=== PATIENT | female | born 1955 | race Caucasian/White ===

== ENCOUNTER 2022-04-17 14:56 | Emergency (ER) | payer MEDICARE, OTHER, SELFPAY ==
[2022-04-17 15:27] VITALS: BP 144/90; BP 148/79; PULSE 66; PULSE 77; RESP 20; TEMP 36.8; O2SAT 96; O2SAT 99; BMI 25.8
--- NOTE | 2022-04-17 15:44 | ED_ITS ---
HPI - General Adult General Chief complaint: General Medical Stated complaint: PSYCH EVAL PER EMS Time Seen by Provider: 04/17/22 15:37 Source: family and EMS Mode of arrival: EMS Limitations: other (dementia) History of Present Illness HPI narrative: This is 67 years old female with history of dementia she arrived here by ambulance because she has been wandering, report change in behavior for the last couple of weeks, patient is awake and alert he noted acute distress at this point denies any chest pain shortness of breath fever but the history is limited because of dementia Onset (ago): day(s) (3) Radiation: non-radiation Severity: mild Relieving factors: none Related Data Allergies Allergy/AdvReac Type Severity Reaction Status Date / Time No Known Allergies Allergy Unverified 01/21/20 16:10 Review of Systems Review of Systems: Yes Unobtainable due to mental condition (dementia) [facility] Past Medical History [facility] Narrative: HTN,hypercholesteremia,dementia Social History Social History Smoked in Last 30 Days: No Use of substances other than those prescribed or required for medical reasons: No Advance Directives: No Advance Directives Information Provided: Yes Physical Exam ED Vital Signs: Vital Signs - 24 hr 04/17/22 15:27 Temperature 98.3 F Pulse Rate 66 Respiratory Rate 20 Blood Pressure 148/79 H Pulse Oximetry 96 Oxygen Delivery Method Room Air BMI result Body Mass Index 25.8 She looks well she has no toxic-appearing Const General: healthy appearing, comfortable, no acute distress, well developed, alert, awake and Physically active Nutritional Appearance: average body habitus Orientation/consciousness: oriented to place HENWV Head: Yes normal to inspection Face and sinus: Yes normal facial exam Mouth: Normal oral and palatal mucosa present Throat: Yes posterior oropharynx normal Neck Neck: Yes normal visual inspection Chest Chest palpation & inspection: normal inspection of the chest Resp Effort & Inspection: normal respiratory effort Auscultation: clear to auscultation bilaterally Cardio Jugular venous distension: no JVD Rate: regular rate Rhythm: regular rhythm GI Inspection: Yes normal to inspection Palpation (GI): Soft to palpation, not firm, nontender, no guarding and not rigid Skin General skin exam: no rashes or lesions noted and elasticity normal Neuro General: oriented to place Cranial nerves: Yes CN's II-XII intact bilaterally Gait exam (Neuro): Normal gait present Motor exam (neuro): 5/5 motor strength present throughout Extrem General: Yes normal to inspection Course Reevaluation(s) Reevaluation #1: signed out to Dr Smith Time: 16:25 Medical Decision Making Medical Decision Making [facility] Narrative: In summary the patient presented with dementia with behavior changes, we will check a UA, CBC chemistry will consult care team Differential Diagnosis uti,dehydration,infection Lab Data Result Diagrams: 04/17/22 16:10 04/17/22 16:11 Labs: Lab Results 04/17/22 Range/Units 16:10 WBC 6.8 (4.8-10.8) X10*3/uL RBC 4.86 (4.20-5.50) X10*6/uL Hgb 13.6 (12.0-16.0) g/dl Hct 41.3 (37.0-47.0) % MCV 85.0 (80.0-98.0) fL MCH 28.0 (27.0-33.0) pg MCHC 32.9 (31.0-35.0) g/dl RDW 12.7 (11.0-16.0) % Plt Count 249 (160-400) X10*3/uL MPV 11.5 (9.4-12.3) fL Immature Gran % (Auto) 0.3 (0.0-0.4) % Neut % (Auto) 65.1 (45-73) % Lymph % (Auto) 25.1 (20-40) % [place] % (Auto) 7.0 (2-11) % Eos % (Auto) 1.5 (0-4) % Baso % (Auto) 1.0 (0-2) % Lymph # (Auto) 1.7 (1.2-4.9) X10*3/uL [place] # (Auto) 0.5 (0.1-1.2) X10*3/uL Eos # (Auto) 0.1 (0.0-0.4) X10*3/uL Baso # (Auto) 0.1 (0.0-0.2) X10*3/uL Abs Immat Gran (auto) 0.02 (0.00-0.03) X10*3/uL Absolute Neuts (auto) 4.5 (2.0-8.3) x10*3/uL Absolute Nucleated RBC 0.000 (0.0-0.012) X10*3/uL Nucleated RBC % (auto) 0.0 (0.0-0.2) /100WBC Discharge Plan Discharge Clinical Impression: Dementia with behavioral disturbance Patient Disposition: Still a Patient
[2022-04-17 16:17] LABS: MANUAL DIFF FLAG NO
[2022-04-17 16:18] LABS: Basophils Absolute Auto 0.1 X10*3/uL (0.0-0.2); Eosinophils Absolute Auto 0.1 X10*3/uL (0.0-0.4); Eosinophils Percent Auto 1.5 % (0-4); Hematocrit 41.3 % (37.0-47.0); Hemoglobin 13.6 g/dl (12.0-16.0); Imm Gran Abs Auto 0.02 X10*3/uL (0.00-0.03); Imm Gran Pct Auto 0.3 % (0.0-0.4); Lymphocytes Absolute Auto 1.7 X10*3/uL (1.2-4.9); Lymphocytes Percent Auto 25.1 % (20-40); Mean Corpuscular HGB Conc 32.9 g/dl (31.0-35.0); Mean Platelet Volume 11.5 fL (9.4-12.3); Monocytes Absolute Auto 0.5 X10*3/uL (0.1-1.2); Neutrophils Absolute Auto 4.5 x10*3/uL (2.0-8.3); Neutrophils Percent Auto 65.1 % (45-73); Platelet Count 249 X10*3/uL (160-400); Red Blood Count 4.86 X10*6/uL (4.20-5.50); Red Cell Distribution Width 12.7 % (11.0-16.0); White Blood Count 6.8 X10*3/uL (4.8-10.8)
[2022-04-17 16:40] LABS: Alanine Aminotransferase 22 U/L (0-31); Albumin Level 4.3 g/dL (3.5-5.0); Alkaline Phosphatase 68 U/L (39-117); Anion Gap 12 (12-20); Aspartate Amino Transferase 18 U/L (5-31); Bilirubin Total 0.5 mg/dL (0.0-1.0); Blood Urea Nitrogen 21 mg/dL (9-16); Calcium 9.5 mg/dL (8.4-10.2); Carbon Dioxide 25 mmol/L (22-29); Chloride 108 mmol/L (96-108); Creatinine Clr Calc Pharmacy 61.1; Estimated Glomerular Filt Rate > 60; Glucose Random 86 mg/dL (60-115); Potassium 3.9 mmol/L (3.3-5.1); Sodium 141 mmol/L (135-145); Total Protein 6.9 g/dL (6.5-8.0)
[2022-04-17 16:52] LABS: Influenza A PCR NEGATIVE (Negative); Influenza B PCR NEGATIVE (Negative); Resp Syncy Virus RNA Qual PCR NEGATIVE (Negative); SARS COV2 PCR INHOUSE NEGATIVE (Negative)
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
--- NOTE | 2022-04-17 20:03 | PC.NURSE ---
Patient requested discharge, patient is here for wandering secondary to dementia, patient was diagnosed with Alzheimer 4 years ago, patient is own her own, provider notified/thinks patient is not section-able/consented with patient's wish, patient's was not happy with discharge plan but this keno writer explained that we have no reason to keep her against her wish, care team help asked/clinician spoke with patient's /decided to undo to d/c however patient's upset and decided to take patient home.
== END 2022-04-17 20:12 | disposition home or self-care (01) ==
PROVIDERS: Emergency Provider Emergency Medicine
DX: F03.918 Unspecified dementia, unspecified severity, with other behavioral disturbance (principal); Z20.822 Contact with and (suspected) exposure to COVID-19; Z79.899 Other long term (current) drug therapy
CPT/HCPCS: 0241U; 80053; 85025; 99283

== ENCOUNTER 2022-04-30 21:43 | Emergency (ER) | payer MEDICARE, OTHER, SELFPAY ==
[2022-04-30 21:56] VITALS: BP 134/90; BP 137/81; PULSE 73; PULSE 81; RESP 18; TEMP 36.3; O2SAT 97; O2SAT 98; BMI 25.9
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
[2022-04-30 22:25] LABS: Appearance Urine Clear; Color Urine Yellow; Glucose Urine UA Negative (Negative); Leukocyte Esterase Urine Small (1+) (Negative); Nitrite Urine Negative (Negative); Specific Gravity - Urine 1.025 (1.005-1.025); UMIC TRIGGER UACC YES; Urine Blood Small (1+) (Negative); Urine Ketones Trace mg/dL (Negative); Urine Protein Negative (Neg-Trace)
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
[2022-04-30 22:38] LABS: Bacteria Urine None Seen (None Seen); Hyaline Casts Urine 0-2 /LPF (0-2); Squamous Epithelial Cell Urine 0-2 /HPF (0-2); UACC Culture Trigger YES; WBC Urine 0-5 /HPF (0-5)
--- NOTE | 2022-05-01 00:13 | PC.NURSE ---
Rn administered medications per MAR. Pt denies pain at this time. Pt is sitting in Ed stretcher whispering words to self. Rn unable to make out the words.
--- NOTE | 2022-05-01 00:47 | MHC.CARE ---
Pt was evaluated by CARE team. Recommendation is for psychiatry consult. ED provider updated, pt and are aware of plan.
[2022-05-01 06:00] VITALS: BP 110/68; PULSE 60; RESP 18; TEMP 36.5; O2SAT 100
[2022-05-01 07:23] VITALS: BP 121/78; PULSE 66; RESP 14; TEMP 36.5; O2SAT 99
[2022-05-01 10:11] VITALS: BP 136/92; PULSE 72; RESP 16; TEMP 36.4; O2SAT 98
[2022-05-01 10:31] LABS: COVID-19 Test Negative (Negative); IDNOW Serial# 16C4AD1C
--- NOTE | 2022-05-01 11:24 | PHA.MEDREC ---
Pharmacy Consult ? Medication Reconciliation Pharmacy has completed the medication reconciliation. Patient and spouse (Jim) confirmed meds with med list on-hand.
[2022-05-01 11:46] VITALS: BP 131/79; PULSE 63
[2022-05-01] MEDS: Sertraline HCL 25 MG TABLET 75 MG PO (11:48)
[2022-05-01] MEDS: Memantine HCl 10 MG TABLET PO (11:49)
[2022-05-01] MEDS: QUEtiapine Fumarate 25 MG TABLET PO (11:49)
[2022-05-01] MEDS: lisinopriL 10 MG TABLET PO (11:49)
[2022-05-01] MEDS: Atorvastatin Calcium 20 MG TABLET PO (11:49)
[2022-05-01 14:24] VITALS: BP 113/66; PULSE 78; RESP 16; TEMP 36.4; O2SAT 97
[2022-05-01 15:19] LABS: MANUAL DIFF FLAG NO
[2022-05-01 15:22] LABS: Basophils Absolute Auto 0.1 X10*3/uL (0.0-0.2); Basophils Percent Auto 1.3 % (0-2); Eosinophils Absolute Auto 0.3 X10*3/uL (0.0-0.4); Eosinophils Percent Auto 3.8 % (0-4); Hematocrit 41.7 % (37.0-47.0); Hemoglobin 13.2 g/dl (12.0-16.0); Imm Gran Abs Auto 0.02 X10*3/uL (0.00-0.03); Imm Gran Pct Auto 0.3 % (0.0-0.4); Lymphocytes Absolute Auto 1.5 X10*3/uL (1.2-4.9); Mean Corpuscular HGB Conc 31.7 g/dl (31.0-35.0); Mean Corpuscular Hemoglobin 27.6 pg (27.0-33.0); Mean Corpuscular Volume 87.1 fL (80.0-98.0); Mean Platelet Volume 11.8 fL (9.4-12.3); Monocytes Absolute Auto 0.6 X10*3/uL (0.1-1.2); Monocytes Percent Auto 7.3 % (2-11); Neutrophils Absolute Auto 5.1 x10*3/uL (2.0-8.3); Neutrophils Percent Auto 67.3 % (45-73); Platelet Count 240 X10*3/uL (160-400); Red Blood Count 4.79 X10*6/uL (4.20-5.50); White Blood Count 7.6 X10*3/uL (4.8-10.8)
[2022-05-01 15:37] LABS: Alanine Aminotransferase 21 U/L (0-31); Albumin Level 4.1 g/dL (3.5-5.0); Alkaline Phosphatase 71 U/L (39-117); Anion Gap 10 (12-20); Aspartate Amino Transferase 21 U/L (5-31); Bilirubin Total 0.2 mg/dL (0.0-1.0); Blood Urea Nitrogen 13 mg/dL (9-16); Calcium 9.3 mg/dL (8.4-10.2); Carbon Dioxide 29 mmol/L (22-29); Chloride 106 mmol/L (96-108); Creatinine Clr Calc Pharmacy 65.6; Estimated Glomerular Filt Rate > 60; Glucose Random 102 mg/dL (60-115); Potassium 4.3 mmol/L (3.3-5.1); Sodium 141 mmol/L (135-145); Total Protein 6.5 g/dL (6.5-8.0)
--- NOTE | 2022-05-01 15:42 | PC.NURSE ---
Pt resting comfortably on stretcher with at bedside, awaiting psychiatry consult at this time
[2022-05-01 15:51] VITALS: BP 133/66; PULSE 69; RESP 17; TEMP 36.4; O2SAT 99
--- NOTE | 2022-05-01 16:45 | PC.NURSE ---
Pt family member would like pt to be discharged. This Rn explained that pt is awaiting a psychiatry consult. Pt family member understands however is concerned that pt might contract an illness from being here in the Emergency Department. This RN and NANDO Lazo attempted to reach out to the psychiatrist however did not receive and answer as to what time the patient would be evaluated. Pt family member requesting to speak to supervisor burling and joining. This RN called nursing supervisor burling and joining and explained the siltation, nursing supervisor burling and joining on her way down at this time
--- NOTE | 2022-05-01 17:38 | PC.NURSE ---
Pt wandering around Emergency Department looking for . currently speaking with psychiatry at this time. This RN attempted to re-direct pt back to bed. Pt becoming agitated with this RN and security assisted in escorting pt back to bed. Pt now settled into bed at this time
--- NOTE | 2022-05-01 17:55 | PM.PSYCN ---
History of Present Illness Date of Service: 05/01/22 Chief Complaint: crisis Reason for Consult: Assess for return home Requesting physician: Shameka Aldana Discussed with referring provider: Yes Sources of Information: patient interviewed, chart reviewed and crisis/core team assessment reviewed Additional Sources of Information: HPI Narrative: Patient is a 67-year-old female with history of Alzheimer's dementia who re-presents to the ED for worsening symptoms in the face of UTI, now receiving treatment. Scrap Drop Engineer met with patient and . Patient is alert to self, place and some of the situation. She knows that she has dementia however says that dementia patients are still allowed to drive and that her PCP told her she is allowed to drive; she complains that despite this, her tried to take the keys away saying she was not allowed to drive. She said that she got A's in her last semester of college and did a good job and taught her daughter's to drive and that her PCP allows her to drive. Patient would not accept thoughts to the contrary. Otherwise patient said that she is doing fine and wants to discharge from the ED. Scrap Drop Engineer met with who reports that patient's chronic symptoms started intensifying around 04/20/2022 when she was 1st treated for UTI and given antibiotics by PCP; also her Seroquel dose was modestly increased. Over the next week she continued to have exacerbated confused behaviors and she came to the emergency room but was discharged home. Her behaviors continued and worsened some, swearing more than usual, accusing her of an affair more intensely and more frequently, locking her other house, taking the car keys and driving around. Patient was brought back to the emergency room and UTI again present and patient started on 2nd course of antibiotic. Currently her says she is not back to her original baseline. Options were discussed including possible geriatric psych admission, however since no bed immediately available and patient would have to remain in the ED for a bed search, it was concluded it was in best interest for the patient to return home with her and see if 2nd course of antibiotics would resolve UTI and that she would be able to return to baseline. If not her would bring her back; they have a good rapport with her PCP who follows her and adjust medication and will be able to discern baseline. Scrap Drop Engineer and discussed ways to make the house safer and is sure that he will make sure she will never get the car keys again. Discussed medication with and patient. Patient's Seroquel dose was recently increased. reports that usually morning times and evenings after dinner are especially troublesome for patient. Discussed and patient/ agreed to take Seroquel dose earlier in the evening, around 18:00 about 2 hours before patient gets agitated. Past Psychiatric History: Diagnosed with Alzheimer dementia Medical Evaluation Reviewed: Yes Personal & Social History: Lives at home with supportive Has daughters [facility] Medical History (Updated 05/02/22 @ 09:18 by Patric Heard MD) Dementia Diagnostics Vital Signs (24Hr): Vital Signs - 24 hr 04/30/22 21:56 05/01/22 06:00 05/01/22 07:23 Temperature 97.3 F 97.7 F 97.7 F Pulse Rate 73 60 66 Respiratory Rate 18 18 14 Blood Pressure 137/81 110/68 121/78 Pulse Oximetry 97 100 99 Oxygen Delivery Method Room Air Room Air Room Air 05/01/22 10:11 05/01/22 11:46 05/01/22 14:24 Temperature 97.5 F 97.6 F Pulse Rate 72 63 78 Respiratory Rate 16 16 Blood Pressure 136/92 H 131/79 113/66 Pulse Oximetry 98 97 Oxygen Delivery Method Room Air Room Air 05/01/22 15:51 Temperature 97.6 F Pulse Rate 69 Respiratory Rate 17 Blood Pressure 133/66 Pulse Oximetry 99 Oxygen Delivery Method Room Air BMI result Body Mass Index 25.9 Labs Results: 05/01/22 15:13 05/01/22 15:13 Labs: Laboratory Results - last 48 hr 04/30/22 05/01/22 05/01/22 22:18 10:14 15:13 WBC 7.6 RBC 4.79 Hgb 13.2 Hct 41.7 MCV 87.1 MCH 27.6 MCHC 31.7 RDW 13.0 Plt Count 240 MPV 11.8 Immature Gran % (Auto) 0.3 Neut % (Auto) 67.3 Lymph % (Auto) 20.0 [place] % (Auto) 7.3 Eos % (Auto) 3.8 Baso % (Auto) 1.3 Lymph # (Auto) 1.5 [place] # (Auto) 0.6 Eos # (Auto) 0.3 Baso # (Auto) 0.1 Abs Immat Gran (auto) 0.02 Absolute Neuts (auto) 5.1 Absolute Nucleated RBC 0.000 Nucleated RBC % (auto) 0.0 Sodium Potassium Chloride Carbon Dioxide Anion Gap BUN Creatinine Estim Creat Clear Calc Estimated GFR Random Glucose Calcium Total Bilirubin AST ALT Alkaline Phosphatase Total Protein Albumin Urine Color Yellow Urine Appearance Clear Urine pH 5.0 Ur Specific [place] 1.025 Urine Protein Negative Urine Glucose (UA) Negative Urine Ketones Trace Urine Blood Small (1+) H Urine Nitrite Negative Ur Leukocyte Esterase Small (1+) H Urine RBC 3-5 H Urine WBC 0-5 Ur Squamous Epith Cells 0-2 Urine Bacteria None Seen Hyaline Casts 0-2 COVID-19 (VIPIN) Negative COVID-19 Clin Com See Note 05/01/22 15:13 WBC RBC Hgb Hct MCV MCH MCHC RDW Plt Count MPV Immature Gran % (Auto) Neut % (Auto) Lymph % (Auto) [place] % (Auto) Eos % (Auto) Baso % (Auto) Lymph # (Auto) [place] # (Auto) Eos # (Auto) Baso # (Auto) Abs Immat Gran (auto) Absolute Neuts (auto) Absolute Nucleated RBC Nucleated RBC % (auto) Sodium 141 Potassium 4.3 Chloride 106 Carbon Dioxide 29 Anion Gap 10 L BUN 13 Creatinine 0.85 Estim Creat Clear Calc 65.6 Estimated GFR > 60 Random Glucose 102 Calcium 9.3 Total Bilirubin 0.2 AST 21 ALT 21 Alkaline Phosphatase 71 Total Protein 6.5 Albumin 4.1 Urine Color Urine Appearance Urine pH Ur Specific [place] Urine Protein Urine Glucose (UA) Urine Ketones Urine Blood Urine Nitrite Ur Leukocyte Esterase Urine RBC Urine WBC Ur Squamous Epith Cells Urine Bacteria Hyaline Casts COVID-19 (VIPIN) COVID-19 Clin Com Mental Status Exam Mental Status Exam Narrative: Pt is alert and oriented to self, place, partially to situation; behavior is cooperative, friendly and calm; patient is not in distress; dressed in casual attire, well groomed with good hygiene; mood is described as good...now and affect congruent; eye contact appropriate; Speech is normal rate, volume and prosody and not pressured; no psychomotor agitation/retardation present; thought process is goal directed however also gets disorganized; Thought content is on discharge, being allowed to drive; otherwise pertinent to relevant topics and without any delusional content, paranoid ideations or grandiosity; denies any SI/HI. There is no evidence of perceptual disturbance. Patients insight and judgment chronically impaired Medications Medications Current Medications Atorvastatin Calcium (Atorvastatin Calcium 20 Mg Tablet) 20 mg PO DAILY [facility] Last Admin: 05/01/22 11:49 Dose: 20 mg Cefuroxime Axetil (Cefuroxime Axetil 500 Mg Tablet) 500 mg PO BID [facility] Last Admin: 05/01/22 07:21 Dose: 500 mg Donepezil HCl (Donepezil Hcl 10 Mg Tablet) 10 mg PO BEDTIME [facility] Levothyroxine Sodium (Levothyroxine Sodium 75 Mcg Tablet) 75 mcg PO DAILY@0600 [facility] Lisinopril (Lisinopril 10 Mg Tablet) 10 mg PO DAILY [facility]; Protocol Last Admin: 05/01/22 11:49 Dose: 10 mg Memantine (Memantine Hcl 10 Mg Tablet) 10 mg PO BID [facility] Last Admin: 05/01/22 11:49 Dose: 10 mg Pharmacy Consult (Consult Rx Perform Med Rec) 1 each MISCELLANE ONCE PRN PRN Reason: Consult order Quetiapine Fumarate (Quetiapine Fumarate 25 Mg Tablet) 25 mg PO BID [facility] Last Admin: 05/01/22 11:49 Dose: 25 mg Sertraline HCl (Sertraline Hcl 25 Mg Tablet) 75 mg PO DAILY [facility] Last Admin: 05/01/22 11:48 Dose: 75 mg Allergies Allergies Allergy/AdvReac Type Severity Reaction Status Date / Time No Known Allergies Allergy Unverified 01/21/20 16:10 Assessment & Plan Assessment & Plan (1) Dementia: Status: Acute Code(s): F03.90 - Unspecified dementia, unspecified severity, without behavioral disturbance, psychotic disturbance, mood disturbance, and anxiety (2) UTI (urinary tract infection): Status: Acute Code(s): N39.0 - Urinary tract infection, site not specified Plan Patient is a 67-year-old female with history of Alzheimer's dementia who re-presents to the ED for worsening symptoms in the face of UTI, now receiving treatment. Scrap Drop Engineer met with patient and . Patient is alert to self, place and some of the situation. She knows that she has dementia however says that dementia patients are still allowed to drive and that her PCP told her she is allowed to drive; she complains that despite this, her tried to take the keys away saying she was not allowed to drive. She said that she got A's in her last semester of college and did a good job and taught her daughter's to drive and that her PCP allows her to drive. Patient would not accept thoughts to the contrary. Otherwise patient said that she is doing fine and wants to discharge from the ED. Scrap Drop Engineer met with who reports that patient's chronic symptoms started intensifying around 04/20/2022 when she was 1st treated for UTI and given antibiotics by PCP; also her Seroquel dose was modestly increased. Over the next week she continued to have exacerbated confused behaviors and she came to the emergency room but was discharged home. Her behaviors continued and worsened some, swearing more than usual, accusing her of an affair more intensely and more frequently, locking her other house, taking the car keys and driving around. Patient was brought back to the emergency room and UTI again present and patient started on 2nd course of antibiotic. Currently her says she is not back to her original baseline. Options were discussed including possible geriatric psych admission, however since no bed immediately available and patient would have to remain in the ED for a bed search, it was concluded it was in best interest for the patient to return home with her and see if 2nd course of antibiotics would resolve UTI and that she would be able to return to baseline. If not her would bring her back; they have a good rapport with her PCP who follows her and adjust medication and will be able to discern baseline. Scrap Drop Engineer and discussed ways to make the house safer and is sure that he will make sure she will never get the car keys again. PLAN: Ok to dc back to care of Continue Seroquel 50 mg in the a.m. Change Seroquel 50 mg to 18:00 (down from 9 p.m.) to help prevent agitation from sundowning Total time managing care of this patient today ____ minutes. Patient educated on: diagnosis and medication risk/benefits Guardian/Caregiver educated on: diagnosis, medication risk/benefits and therapeutic strategies Informed Consent: understands
== END 2022-05-01 17:56 | disposition home or self-care (01) ==
PROVIDERS: Nurse Practitioner Family; Emergency Provider Emergency Medicine
DX: F03.90 Unspecified dementia, unspecified severity, without behavioral disturbance, psychotic disturbance, mood disturbance, and anxiety (principal); N39.0 Urinary tract infection, site not specified; F32.A Depression, unspecified; Z20.822 Contact with and (suspected) exposure to COVID-19
CPT/HCPCS: 36415; 80053; 81001; 85025; 87086; 87635; 99284; J0696

== ENCOUNTER 2022-05-08 14:46 | Inpatient (IN) | payer MEDICARE, OTHER, SELFPAY ==
--- NOTE | ~2022-05-08 | CT_ITS ---
EXAMINATION: CT HEAD WITHOUT CONTRAST CLINICAL INFORMATION: Worsening altered mental status. COMPARISON: None. TECHNIQUE: Contiguous axial imaging was performed from the skullbase to vertex without intravenous administration of contrast. This CT examination was performed using dose optimization techniques as appropriate, variously including the following: *Automated exposure control *Adjustment of mA and/or kV according to patient size (this includes techniques or standardized protocols for targeted exams where dose is matched to indication/reason for exam; i.e. extremities or head) *Use of iterative reconstruction technique DLP: 711 mGy-cm. FINDINGS: There is no evidence of acute intracranial hemorrhage or territorial infarction. No abnormal mass effect or midline shift is seen. Vargas to white matter differentiation is well preserved. No extra-axial fluid collections are identified. Moderate diffuse parenchymal volume loss noted with mild chronic white matter microangiopathic changes. The osseous structures and soft tissues are normal. The mastoid air cells and visualized portions of the paranasal sinuses are well aerated. CT/CT head/brain wo IV con IMPRESSION: No acute intracranial hemorrhage or territorial infarction. Moderate generalized parenchymal volume loss and mild chronic white matter microangiopathy.
[2022-05-08 14:57] VITALS: BP 132/79; PULSE 86; RESP 18; TEMP 36.7; O2SAT 95; BMI 24.3
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
[2022-05-08 15:38] LABS: MANUAL DIFF FLAG NO
[2022-05-08 15:40] LABS: COVID-19 Test Negative (Negative); IDNOW Serial# BCCEAD1C
[2022-05-08 15:41] LABS: Basophils Absolute Auto 0.1 X10*3/uL (0.0-0.2); Eosinophils Absolute Auto 0.2 X10*3/uL (0.0-0.4); Hemoglobin 14.2 g/dl (12.0-16.0); Imm Gran Abs Auto 0.03 X10*3/uL (0.00-0.03); Imm Gran Pct Auto 0.3 % (0.0-0.4); Lymphocytes Percent Auto 21.2 % (20-40); Mean Corpuscular HGB Conc 32.3 g/dl (31.0-35.0); Mean Corpuscular Hemoglobin 27.6 pg (27.0-33.0); Mean Corpuscular Volume 85.6 fL (80.0-98.0); Mean Platelet Volume 11.9 fL (9.4-12.3); Monocytes Absolute Auto 0.6 X10*3/uL (0.1-1.2); Monocytes Percent Auto 6.4 % (2-11); Neutrophils Absolute Auto 6.5 x10*3/uL (2.0-8.3); Neutrophils Percent Auto 69.1 % (45-73); Platelet Count 251 X10*3/uL (160-400); Red Blood Count 5.14 X10*6/uL (4.20-5.50); Red Cell Distribution Width 12.5 % (11.0-16.0); White Blood Count 9.4 X10*3/uL (4.8-10.8)
[2022-05-08 15:53] LABS: Alanine Aminotransferase 27 U/L (0-31); Albumin Level 4.6 g/dL (3.5-5.0); Alkaline Phosphatase 75 U/L (39-117); Anion Gap 10 (12-20); Aspartate Amino Transferase 24 U/L (5-31); Bilirubin Total 0.3 mg/dL (0.0-1.0); Blood Urea Nitrogen 25 mg/dL (9-16); Calcium 9.7 mg/dL (8.4-10.2); Carbon Dioxide 28 mmol/L (22-29); Chloride 105 mmol/L (96-108); Creatinine Clr Calc Pharmacy 58.6; Estimated Glomerular Filt Rate 59; Glucose Random 94 mg/dL (60-115); Potassium 4.3 mmol/L (3.3-5.1); Sodium 139 mmol/L (135-145); Total Protein 7.4 g/dL (6.5-8.0)
--- NOTE | 2022-05-08 15:54 | MHC.CARE ---
CARE team consulted with Dr Santiago as Flora was recently discharged from [facility] ED a couple days ago. She has history of dementia and is being treated for UTI. Dr. Santiago requesting psych consult for disposition as it appears she may require referral to case management for LTC placement on dementia unit vs inpatient level of care.
[2022-05-08] MEDS: OLANZapine 5 MG TABLET PO (16:05)
[2022-05-08 16:10] LABS: Amphetamine Screen Urine Not Detected (Not Detect); Barbiturates, Urine Not Detected (Not Detect); Benzodiazepines Screen Urine Not Detected (Not Detect); Cannabinoid Screen Urine Not Detected (Not Detect); Cocaine Screen Urine Not Detected (Not Detect); Fentanyl, urine Not Detected (Not Detect); Opiate Screen Urine Not Detected (Not Detect); Phencyclidine Screen Urine Not Detected (Not Detect)
[2022-05-08 16:58] LABS: Appearance Urine Cloudy; Color Urine Yellow; Glucose Urine UA Negative (Negative); Leukocyte Esterase Urine Moderate (2+) (Negative); Nitrite Urine Negative (Negative); PH 5.5 (5.0-9.0); Specific Gravity - Urine >= 1.030 (1.005-1.025); UMIC TRIGGER UACC YES; Urine Blood Small (1+) (Negative); Urine Ketones Trace mg/dL (Negative); Urine Protein Trace mg/dL (Neg-Trace)
[2022-05-08 17:19] LABS: Bacteria Urine None Seen (None Seen); Calcium Oxalate Crystals Urine Present; Hyaline Casts Urine 0-2 /LPF (0-2); UACC Culture Trigger YES
--- NOTE | 2022-05-08 17:48 | PC.NURSE ---
Pt noted to be vigorously self-dialoguing, fixated on the belief that her Jim is/or has been cheating on her with a woman named Carolyn, which resulted in an infection . Pt yelling in her room off and on. Zyprexa 5mg admin PO earlier with little effect. Pt awaiting crisis eval at this time.
[2022-05-08] MEDS: QUEtiapine Fumarate 25 MG TABLET PO (21:14)
[2022-05-08] MEDS: Donepezil HCl 10 MG TABLET PO (21:14)
[2022-05-08] MEDS: Memantine HCl 10 MG TABLET PO (21:15)
[2022-05-09] MEDS: Levothyroxine Sodium 75 MCG TABLET PO (06:32)
[2022-05-09 06:44] VITALS: BP 125/70; PULSE 52; RESP 15; TEMP 36.6; O2SAT 99
[2022-05-09] MEDS: QUEtiapine Fumarate 25 MG TABLET PO ×2 (07:34→17:01)
[2022-05-09] MEDS: Atorvastatin Calcium 20 MG TABLET PO (07:35)
[2022-05-09] MEDS: Memantine HCl 10 MG TABLET PO ×2 (07:35→20:17)
[2022-05-09] MEDS: lisinopriL 10 MG TABLET PO (07:35)
[2022-05-09] MEDS: Sertraline HCL 25 MG TABLET 75 MG PO (07:36)
[2022-05-09] MEDS: OLANZapine 5 MG TABLET PO ×2 (07:37→21:56)
[2022-05-09 07:53] VITALS: BP 131/60; PULSE 59; RESP 15; TEMP 36.8; O2SAT 98
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
--- NOTE | 2022-05-09 11:53 | ECG_ITS ---
Test Reason : psych meds Blood Pressure : / mmHG Vent. Rate : 055 BPM Atrial Rate : 055 BPM P-R Int : 136 ms QRS Dur : 096 ms QT Int : 440 ms P-R-T Axes : 061 047 057 degrees QTc Int : 420 ms Sinus bradycardia Otherwise normal ECG No previous ECGs available Referred By: Bubba Weems Electronically Signed By:MARYBETH BLAKE
[2022-05-09] MEDS: risperiDONE 0.5 MG TABLET PO ×2 (12:10→17:01)
--- NOTE | 2022-05-09 12:47 | PC.NURSE ---
Per Care team: Dr. Heard to sign S12b, and plan for admission.
[2022-05-09 14:00] VITALS: RESP 18
--- NOTE | 2022-05-09 14:51 | MHC.CARE ---
patient seen by Care team for assessment, to be admitted inpt LOC.
[2022-05-09] MEDS: Donepezil HCl 10 MG TABLET PO (20:17)
[2022-05-09 20:24] VITALS: BP 108/71; PULSE 64; RESP 18; TEMP 36.4; O2SAT 97
[2022-05-09 23:24] VITALS: BP 141/72; PULSE 62; TEMP 36.2; O2SAT 99
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
[2022-05-10 06:00] VITALS: BP 118/77; PULSE 76; RESP 19; TEMP 36.1; O2SAT 100
[2022-05-10] MEDS: Levothyroxine Sodium 75 MCG TABLET PO (06:12)
[2022-05-10] MEDS: risperiDONE 0.5 MG TABLET PO ×3 (06:33→19:31)
[2022-05-10] MEDS: hydrOXYzine HCL 25 MG TABLET PO ×2 (06:33→16:04)
[2022-05-10 07:00] VITALS: BMI 22.5
[2022-05-10 08:23] LABS: Estimated Average Glucose 108 mg/dL; Hemoglobin A1c % 5.4 %
[2022-05-10 08:35] LABS: Alanine Aminotransferase 23 U/L (0-31); Albumin Level 4.5 g/dL (3.5-5.0); Alkaline Phosphatase 67 U/L (39-117); Anion Gap 13 (12-20); Aspartate Amino Transferase 18 U/L (5-31); Bilirubin Direct 0.2 mg/dL (0.0-0.5); Bilirubin Total 0.5 mg/dL (0.0-1.0); Blood Urea Nitrogen 15 mg/dL (9-16); Calcium 9.9 mg/dL (8.4-10.2); Carbon Dioxide 27 mmol/L (22-29); Chloride 105 mmol/L (96-108); Cholesterol 113 mg/dL; Creatinine Clr Calc Pharmacy 60.4; Estimated Glomerular Filt Rate > 60; Glucose Fasting 97 mg/dL (60-99); HDL Cholesterol 42 mg/dL; LDL Cholesterol Calculated 60 mg/dl; Potassium 4.2 mmol/L (3.3-5.1); Sodium 141 mmol/L (135-145); Total Protein 7.1 g/dL (6.5-8.0); Triglycerides 57 mg/dL
[2022-05-10 08:51] LABS: Thyroid Stimulating Hormone 5.12 uIU/mL (0.32-4.0)
[2022-05-10 09:07] LABS: Folate 8.6 ng/mL (> or = 4.0); Vitamin B12 895 pg/mL (200-900)
[2022-05-10] MEDS: QUEtiapine Fumarate 25 MG TABLET PO (09:59)
[2022-05-10] MEDS: Atorvastatin Calcium 20 MG TABLET PO (09:59)
[2022-05-10] MEDS: Sertraline HCL 25 MG TABLET 75 MG PO (09:59)
[2022-05-10] MEDS: lisinopriL 10 MG TABLET PO (10:57)
[2022-05-10] MEDS: Memantine HCl 10 MG TABLET PO ×2 (10:57→19:31)
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
[2022-05-10] MEDS: Sulfamethox/Trimeth 800/160 TABLET 1 TAB PO (17:53)
[2022-05-10] MEDS: OLANZapine 5 MG TABLET PO (17:54)
[2022-05-10 18:00] VITALS: BP 101/62; PULSE 71; RESP 17; TEMP 36.2; O2SAT 99
[2022-05-10] MEDS: Donepezil HCl 10 MG TABLET PO (19:31)
[2022-05-10] MEDS: LORazepam 1 MG TABLET PO (19:31)
[2022-05-10] MEDS: OLANZapine ODT 10 MG TAB.RAPDIS TRANSLINGU (19:31)
[2022-05-11] MEDS: Levothyroxine Sodium 75 MCG TABLET PO (05:52)
[2022-05-11 06:00] VITALS: BP 135/62; PULSE 64; RESP 14; TEMP 36.3; O2SAT 100
[2022-05-11] MEDS: Sertraline HCL 25 MG TABLET 75 MG PO (10:54)
[2022-05-11] MEDS: Atorvastatin Calcium 20 MG TABLET PO (10:54)
[2022-05-11] MEDS: risperiDONE 0.5 MG TABLET PO (10:54)
[2022-05-11] MEDS: lisinopriL 10 MG TABLET PO (10:54)
[2022-05-11] MEDS: Sulfamethox/Trimeth 800/160 TABLET 1 TAB PO ×2 (10:55→18:26)
[2022-05-11] MEDS: Memantine HCl 10 MG TABLET PO ×2 (10:55→21:16)
--- NOTE | 2022-05-11 16:29 | HO.PSYCHPN ---
Subjective Subjective Date of Service: 05/11/22 Reason For Visit: Agitation in Dementia Subjective Notes: Section 12B Interim History: The nursing staff reported that yesterday the patient was very confused and agitated in the evening. She needed to be medicated several times with Zyprexa and Ativan. She did not respond to Zyprexa. Today in the morning she was sleeping and later on I was able to interview her. The patient was pleasantly confused but later on after 16:00 she got agitated. Historically, yesterday she respond well to Ativan and we will start a low dose at 04:00 o'clock in the afternoon. We added p.r.n. Zyprexa Zydis p.o.. Her [place] score is 8/30. The patient is very demented at this moment and she is on delirium Mental Status Exam Mental Status Exam Patient Appearance: Appropriate Patient Orientation: Person and Situation Level of Consciousness: Awake and Appropriate Patient Behavior: Guarded and Passive Mood Description: Withdrawn Affect Description: Labile Patient Cognition Impaired: Yes Ability to Follow Directions: Good Speech Pattern: Clear Hallucinations: None Delusions: Paranoid Ideation and Bizarre Thought Process: Distracted and Slowed Thinking Thought Content: positive for [place], positive for [place] and positive for Thought Blocking Judgement: Fair Diagnostics Vital Signs (24Hr): Vital Signs - 24 hr 05/10/22 18:00 05/11/22 06:00 Temperature 97.2 F 97.3 F Pulse Rate 71 64 Respiratory Rate 17 14 Blood Pressure 101/62 135/62 Pulse Oximetry 99 100 Oxygen Delivery Method Room Air Room Air BMI result Body Mass Index 22.5 Labs 05/08/22 15:30 05/10/22 07:48 Labs: Laboratory Results - last 48 hr 05/10/22 05/10/22 05/10/22 07:48 07:48 07:48 Sodium 141 Potassium 4.2 Chloride 105 Carbon Dioxide 27 Anion Gap 13 BUN 15 Creatinine 0.91 Estim Creat Clear Calc 60.4 Estimated GFR > 60 Fasting Glucose 97 Estimat Average Glucose 108 Hemoglobin A1c % 5.4 Calcium 9.9 Total Bilirubin 0.5 Direct Bilirubin 0.2 AST 18 ALT 23 Alkaline Phosphatase 67 Total Protein 7.1 Albumin 4.5 Triglycerides 57 Cholesterol 113 LDL Cholesterol, Calc 60 HDL Cholesterol 42 Vitamin B12 895 Folate 8.6 TSH 5.12 H Medications Medications Current Medications Acetaminophen (Acetaminophen 325 Mg Tablet) 650 mg PO Q6H PRN PRN Reason: Headache/Pain Mild Scale (1-3) Al Hydroxide/Mg Hydroxide (Magnesium Hydrox/Alum Hydrox 30 Ml Oral.Susp) 30 ml PO Q6H PRN PRN Reason: Heartburn/Nausea Atorvastatin Calcium (Atorvastatin Calcium 20 Mg Tablet) 20 mg PO DAILY [facility] Last Admin: 05/11/22 10:54 Dose: 20 mg Donepezil HCl (Donepezil Hcl 10 Mg Tablet) 10 mg PO BEDTIME [facility] Last Admin: 05/10/22 19:31 Dose: 10 mg Hydroxyzine HCl (Hydroxyzine Hcl 25 Mg Tablet) 25 mg PO Q6H PRN PRN Reason: Anxiety Last Admin: 05/10/22 16:04 Dose: 25 mg Levothyroxine Sodium (Levothyroxine Sodium 75 Mcg Tablet) 75 mcg PO DAILY@0600 [facility] Last Admin: 05/11/22 05:52 Dose: 75 mcg Lisinopril (Lisinopril 10 Mg Tablet) 10 mg PO DAILY [facility]; Protocol Last Admin: 05/11/22 10:54 Dose: 10 mg Lorazepam (Lorazepam 1 Mg Tablet) 1 mg PO DAILY@1600 [facility] Magnesium Hydroxide (Milk Of Magnesia 30 Ml Oral.Susp) 30 ml PO DAILY PRN PRN Reason: Constipation Memantine (Memantine Hcl 10 Mg Tablet) 10 mg PO BID [facility] Last Admin: 05/11/22 10:55 Dose: 10 mg Olanzapine (Olanzapine Odt 10 Mg Tab.Rapdis) 10 mg TRANSLINGU BID PRN PRN Reason: Pre-Op Surgical Prep Olanzapine (Olanzapine 2.5 Mg Tablet) 7.5 mg PO BEDTIME [facility] Olanzapine (Olanzapine Odt 10 Mg Tab.Rapdis) 10 mg TRANSLINGU BID PRN PRN Reason: Psychosis Sertraline HCl (Sertraline Hcl 25 Mg Tablet) 75 mg PO DAILY [facility] Last Admin: 05/11/22 10:54 Dose: 75 mg Trazodone HCl (Trazodone Hcl 50 Mg Tablet) 50 mg PO BEDTIME PRN PRN Reason: Insomnia Trimethoprim/Sulfamethoxazole (Sulfamethox/Trimeth 800/160 Tablet) 1 tab PO Q12H [facility] Last Admin: 05/11/22 10:55 Dose: 1 tab Allergies Allergies Allergy/AdvReac Type Severity Reaction Status Date / Time No Known Allergies Allergy Unverified 01/21/20 16:10 Assessment & Plan Assessment & Plan (1) Dementia: Qualifiers: Dementia behavioral or psychological symptom: with agitation Dementia severity: moderate Dementia type: unspecified type Qualified Code(s): F03.B11 - Unspecified dementia, moderate, with agitation Status: Acute Code(s): F03.90 - Unspecified dementia, unspecified severity, without behavioral disturbance, psychotic disturbance, mood disturbance, and anxiety (2) Psychosis: Status: Acute Code(s): F29 - Unspecified psychosis not due to a substance or known physiological condition (3) Delirium: Status: Acute Code(s): R41.0 - Disorientation, unspecified Plan The patient is an elderly female with a history of dementia for the last 4 years that have been worsening. The patient had been in the emergency room 3 times in the last weeks we UTI and worsening of delirium with psychotic symptoms. Recently the patient had the fixed delusion that her had been cheating on her and she had been violent. According to her that is not her baseline. Plan 1. Gather collateral information. 2. Continue blood work and urinalysis to rule out acute UTI. 3. Start Risperdal 0.5 mg p.o. b.i.d. to target psychosis. Risperdal was discontinue on May 11. 4. OT referral for [place] and other cognitive test. 5. Radiology studies. 6. Start Zyprexa 7.5 at bedtime and p.r.n. Zydis 10 mg p.o. b.i.d.. 7. Ativan 1 mg in the afternoon before Reason for contiued inpatient stay Substantial Risk for: inability to function, rapid decompensation and med/psych decompensation Time Spent With Patient Time: Total time managing care of this patient today __20__ minutes.
[2022-05-11] MEDS: OLANZapine ODT 10 MG TAB.RAPDIS TRANSLINGU (16:40)
[2022-05-11 18:00] VITALS: BP 103/60; PULSE 64; RESP 16; TEMP 35.9; O2SAT 98
[2022-05-11] MEDS: traZODone HCL 50 MG TABLET PO (21:16)
[2022-05-11] MEDS: Donepezil HCl 10 MG TABLET PO (21:17)
[2022-05-11] MEDS: OLANZapine 2.5 MG TABLET 7.5 MG PO (21:17)
[2022-05-12] MEDS: OLANZapine ODT 10 MG TAB.RAPDIS TRANSLINGU ×3 (01:08→21:47)
[2022-05-12] MEDS: Levothyroxine Sodium 75 MCG TABLET PO (05:47)
[2022-05-12] MEDS: Sulfamethox/Trimeth 800/160 TABLET 1 TAB PO ×2 (05:47→20:10)
[2022-05-12 08:36] VITALS: BP 104/61; PULSE 89; RESP 17; TEMP 35.9; O2SAT 98
[2022-05-12] MEDS: Sertraline HCL 25 MG TABLET 75 MG PO (08:38)
[2022-05-12] MEDS: Atorvastatin Calcium 20 MG TABLET PO (08:38)
[2022-05-12] MEDS: Memantine HCl 10 MG TABLET PO ×2 (08:38→20:10)
[2022-05-12] MEDS: lisinopriL 10 MG TABLET PO (08:38)
--- NOTE | 2022-05-12 17:34 | HO.PSYCHPN ---
Subjective Subjective Date of Service: 05/12/22 Reason For Visit: Agitation in Dementia Interim History: Patient currently pleasant on approach. Patient tells ticket writer that her has admitted this and that he is all done with the affair; patient reports she is doing better now because of it. Patient said that today she met with her family members at a location other than this unit or hospital; she did not respond to reality testing that she has been on the unit all day. Though calm now, after her left from the visit patient got very upset and dysregulated that she was not also leaving. Mental Status Exam Mental Status Exam Narrative: Pt is alert and oriented to self; behavior is mostly friendly and calm, but also disorganized and can get dysregluted; patient is not in distress; dressed in casual attire, well groomed with good hygiene; mood is described as good...now and affect congruent; eye contact appropriate; Speech is normal rate, volume and prosody and not pressured; no psychomotor agitation/retardation present; thought process is can be goal directed however also gets disorganized; Thought content is on delusional thoughts; no SI/HI. Seems to have AH. Patients insight and judgment chronically impaired. Diagnostics Vital Signs (24Hr): Vital Signs - 24 hr 05/11/22 18:00 05/12/22 08:36 Temperature 96.7 F L 96.6 F L Pulse Rate 64 89 Respiratory Rate 16 17 Blood Pressure 103/60 104/61 Pulse Oximetry 98 98 Oxygen Delivery Method Room Air Room Air BMI result Body Mass Index 22.5 Labs 05/08/22 15:30 05/10/22 07:48 Medications Medications Current Medications Acetaminophen (Acetaminophen 325 Mg Tablet) 650 mg PO Q6H PRN PRN Reason: Headache/Pain Mild Scale (1-3) Al Hydroxide/Mg Hydroxide (Magnesium Hydrox/Alum Hydrox 30 Ml Oral.Susp) 30 ml PO Q6H PRN PRN Reason: Heartburn/Nausea Atorvastatin Calcium (Atorvastatin Calcium 20 Mg Tablet) 20 mg PO DAILY [facility] Last Admin: 05/12/22 08:38 Dose: 20 mg Donepezil HCl (Donepezil Hcl 10 Mg Tablet) 10 mg PO BEDTIME [facility] Last Admin: 05/11/22 21:17 Dose: 10 mg Hydroxyzine HCl (Hydroxyzine Hcl 25 Mg Tablet) 25 mg PO Q6H PRN PRN Reason: Anxiety Last Admin: 05/10/22 16:04 Dose: 25 mg Levothyroxine Sodium (Levothyroxine Sodium 75 Mcg Tablet) 75 mcg PO DAILY@0600 [facility] Last Admin: 05/12/22 05:47 Dose: 75 mcg Lisinopril (Lisinopril 10 Mg Tablet) 10 mg PO DAILY [facility]; Protocol Last Admin: 05/12/22 08:38 Dose: 10 mg Lorazepam (Lorazepam 1 Mg Tablet) 1 mg PO DAILY@1600 [facility] Magnesium Hydroxide (Milk Of Magnesia 30 Ml Oral.Susp) 30 ml PO DAILY PRN PRN Reason: Constipation Memantine (Memantine Hcl 10 Mg Tablet) 10 mg PO BID [facility] Last Admin: 05/12/22 08:38 Dose: 10 mg Olanzapine (Olanzapine 2.5 Mg Tablet) 7.5 mg PO BEDTIME [facility] Last Admin: 05/11/22 21:17 Dose: 7.5 mg Olanzapine (Olanzapine Odt 10 Mg Tab.Rapdis) 10 mg TRANSLINGU BID PRN PRN Reason: Psychosis Last Admin: 05/12/22 11:23 Dose: 10 mg Sertraline HCl (Sertraline Hcl 25 Mg Tablet) 75 mg PO DAILY [facility] Last Admin: 05/12/22 08:38 Dose: 75 mg Trazodone HCl (Trazodone Hcl 50 Mg Tablet) 50 mg PO BEDTIME PRN PRN Reason: Insomnia Last Admin: 05/11/22 21:16 Dose: 50 mg Trimethoprim/Sulfamethoxazole (Sulfamethox/Trimeth 800/160 Tablet) 1 tab PO Q12H [facility] Last Admin: 05/12/22 05:47 Dose: 1 tab Allergies Allergies Allergy/AdvReac Type Severity Reaction Status Date / Time No Known Allergies Allergy Unverified 01/21/20 16:10 Assessment & Plan Assessment & Plan (1) Dementia: Qualifiers: Dementia behavioral or psychological symptom: with agitation Dementia severity: moderate Dementia type: unspecified type Qualified Code(s): F03.B11 - Unspecified dementia, moderate, with agitation Status: Acute Code(s): F03.90 - Unspecified dementia, unspecified severity, without behavioral disturbance, psychotic disturbance, mood disturbance, and anxiety (2) Psychosis: Status: Acute Code(s): F29 - Unspecified psychosis not due to a substance or known physiological condition (3) Delirium: Status: Acute Code(s): R41.0 - Disorientation, unspecified Plan The patient is an elderly female with a history of dementia for the last 4 years that have been worsening. The patient had been in the emergency room 3 times in the last weeks we UTI and worsening of delirium with psychotic symptoms. Recently the patient had the fixed delusion that her had been cheating on her and she had been violent. According to her that is not her baseline. 05/12 continue with current treatment plan Plan 1. Gather collateral information. 2. Continue blood work and urinalysis to rule out acute UTI. 3. Start Risperdal 0.5 mg p.o. b.i.d. to target psychosis. Risperdal was discontinue on May 11. 4. OT referral for [place] and other cognitive test. 5. Radiology studies. 6. Start Zyprexa 7.5 at bedtime and p.r.n. Zydis 10 mg p.o. b.i.d.. 7. Ativan 1 mg in the afternoon before Patient educated on: diagnosis Informed Consent: does not understand Reason for contiued inpatient stay Substantial Risk for: inability to function Time Spent With Patient Time: Total time managing care of this patient today ____ minutes.
[2022-05-12] MEDS: LORazepam 1 MG TABLET PO (17:48)
[2022-05-12 18:00] VITALS: BP 103/55; PULSE 668; RESP 18; TEMP 36.5; O2SAT 98
[2022-05-12] MEDS: traZODone HCL 50 MG TABLET PO (20:10)
[2022-05-12] MEDS: Donepezil HCl 10 MG TABLET PO (20:10)
[2022-05-12] MEDS: hydrOXYzine HCL 25 MG TABLET PO (20:10)
[2022-05-12] MEDS: OLANZapine 2.5 MG TABLET 7.5 MG PO (20:10)
[2022-05-13 06:00] VITALS: BP 147/81; PULSE 60; RESP 17; TEMP 35.8; O2SAT 96
[2022-05-13] MEDS: Sulfamethox/Trimeth 800/160 TABLET 1 TAB PO ×2 (09:06→21:06)
[2022-05-13] MEDS: Levothyroxine Sodium 75 MCG TABLET PO (09:06)
[2022-05-13] MEDS: Sertraline HCL 25 MG TABLET 75 MG PO (09:06)
[2022-05-13] MEDS: Atorvastatin Calcium 20 MG TABLET PO (09:08)
[2022-05-13] MEDS: lisinopriL 10 MG TABLET PO (09:08)
[2022-05-13] MEDS: Memantine HCl 10 MG TABLET PO ×2 (09:08→21:07)
[2022-05-13] MEDS: LORazepam 1 MG TABLET PO (15:41)
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
[2022-05-13 18:00] VITALS: BP 100/60; PULSE 92; RESP 18; TEMP 36.4; O2SAT 97
[2022-05-13] MEDS: traZODone HCL 50 MG TABLET PO (21:06)
[2022-05-13] MEDS: Donepezil HCl 10 MG TABLET PO (21:06)
[2022-05-13] MEDS: OLANZapine 2.5 MG TABLET 7.5 MG PO (21:06)
[2022-05-14] MEDS: Levothyroxine Sodium 75 MCG TABLET PO (05:10)
[2022-05-14 06:00] VITALS: BP 107/61; PULSE 72; RESP 16; TEMP 36.1; O2SAT 97
[2022-05-14] MEDS: lisinopriL 10 MG TABLET PO (10:08)
[2022-05-14] MEDS: Memantine HCl 10 MG TABLET PO ×2 (10:08→19:57)
[2022-05-14] MEDS: Sertraline HCL 25 MG TABLET 75 MG PO (10:08)
[2022-05-14] MEDS: Sulfamethox/Trimeth 800/160 TABLET 1 TAB PO ×2 (10:08→20:33)
[2022-05-14] MEDS: Atorvastatin Calcium 20 MG TABLET PO (10:08)
[2022-05-14] MEDS: OLANZapine ODT 10 MG TAB.RAPDIS TRANSLINGU (12:11)
--- NOTE | 2022-05-14 14:03 | HO.PSYCHPN ---
Subjective Subjective Date of Service: 05/14/22 Reason For Visit: Agitation in Dementia Subjective Notes: Section 12B Interim History: The nursing staff reported the patient had been argumentative and accusing her cheating needed with a college roommate or his daughter. She had been exit seeking, intrusive at times. Over the weekend we tried Ativan but it seems that it is inhibits her because she starts disrobing. She had used wants Zyprexa p.r.n. with some improvement. We discussed with the team regarding treatment of agitation and psychosis. We will discontinue Ativan and start Zyprexa 5 mg at 16:00 avoid and keep Zyprexa 7.5 at bedtime. Mental Status Exam Mental Status Exam Patient Appearance: Appropriate Patient Orientation: Person Level of Consciousness: Disoriented and Restless Patient Behavior: Guarded, Suspicious and Belligerent Mood Description: Flat Affect Description: Labile Patient Cognition Impaired: Yes Ability to Follow Directions: Fair Speech Pattern: Rambling and Excited Hallucinations: None Delusions: Paranoid Ideation, Ideas of Reference and Bizarre Thought Process: Distracted and Slowed Thinking Thought Content: positive for [place] and positive for Incoherent Judgement: Fair Diagnostics Vital Signs (24Hr): Vital Signs - 24 hr 05/13/22 18:00 05/14/22 06:00 Temperature 97.6 F 96.9 F Pulse Rate 92 72 Respiratory Rate 18 16 Blood Pressure 100/60 107/61 Pulse Oximetry 97 97 Oxygen Delivery Method Room Air Room Air BMI result Body Mass Index 22.5 Labs 05/08/22 15:30 05/10/22 07:48 Medications Medications Current Medications Acetaminophen (Acetaminophen 325 Mg Tablet) 650 mg PO Q6H PRN PRN Reason: Headache/Pain Mild Scale (1-3) Al Hydroxide/Mg Hydroxide (Magnesium Hydrox/Alum Hydrox 30 Ml Oral.Susp) 30 ml PO Q6H PRN PRN Reason: Heartburn/Nausea Atorvastatin Calcium (Atorvastatin Calcium 20 Mg Tablet) 20 mg PO DAILY [facility] Last Admin: 05/14/22 10:08 Dose: 20 mg Donepezil HCl (Donepezil Hcl 10 Mg Tablet) 10 mg PO BEDTIME [facility] Last Admin: 05/13/22 21:06 Dose: 10 mg Hydroxyzine HCl (Hydroxyzine Hcl 25 Mg Tablet) 25 mg PO Q6H PRN PRN Reason: Anxiety Last Admin: 05/12/22 20:10 Dose: 25 mg Levothyroxine Sodium (Levothyroxine Sodium 75 Mcg Tablet) 75 mcg PO DAILY@0600 [facility] Last Admin: 05/14/22 05:10 Dose: 75 mcg Lisinopril (Lisinopril 10 Mg Tablet) 10 mg PO DAILY [facility]; Protocol Last Admin: 05/14/22 10:08 Dose: 10 mg Magnesium Hydroxide (Milk Of Magnesia 30 Ml Oral.Susp) 30 ml PO DAILY PRN PRN Reason: Constipation Memantine (Memantine Hcl 10 Mg Tablet) 10 mg PO BID [facility] Last Admin: 05/14/22 10:08 Dose: 10 mg Olanzapine (Olanzapine 2.5 Mg Tablet) 7.5 mg PO BEDTIME [facility] Last Admin: 05/13/22 21:06 Dose: 7.5 mg Olanzapine (Olanzapine Odt 10 Mg Tab.Rapdis) 10 mg TRANSLINGU BID PRN PRN Reason: Psychosis Last Admin: 05/14/22 12:11 Dose: 10 mg Olanzapine (Olanzapine 5 Mg Tablet) 5 mg PO DAILY [facility] Sertraline HCl (Sertraline Hcl 25 Mg Tablet) 75 mg PO DAILY [facility] Last Admin: 05/14/22 10:08 Dose: 75 mg Trazodone HCl (Trazodone Hcl 50 Mg Tablet) 50 mg PO BEDTIME PRN PRN Reason: Insomnia Last Admin: 05/13/22 21:06 Dose: 50 mg Trimethoprim/Sulfamethoxazole (Sulfamethox/Trimeth 800/160 Tablet) 1 tab PO Q12H [facility] Last Admin: 05/14/22 10:08 Dose: 1 tab Allergies Allergies Allergy/AdvReac Type Severity Reaction Status Date / Time No Known Allergies Allergy Unverified 01/21/20 16:10 Assessment & Plan Assessment & Plan (1) Dementia: Qualifiers: Dementia behavioral or psychological symptom: with agitation Dementia severity: moderate Dementia type: unspecified type Qualified Code(s): F03.B11 - Unspecified dementia, moderate, with agitation Status: Acute Code(s): F03.90 - Unspecified dementia, unspecified severity, without behavioral disturbance, psychotic disturbance, mood disturbance, and anxiety (2) Psychosis: Status: Acute Code(s): F29 - Unspecified psychosis not due to a substance or known physiological condition (3) Delirium: Status: Acute Code(s): R41.0 - Disorientation, unspecified Plan The patient is an elderly female with a history of dementia for the last 4 years that have been worsening. The patient had been in the emergency room 3 times in the last weeks we UTI and worsening of delirium with psychotic symptoms. Recently the patient had the fixed delusion that her had been cheating on her and she had been violent. According to her that is not her baseline. Plan 1. Gather collateral information. 2. Continue blood work and urinalysis to rule out acute UTI. 3. Start Risperdal 0.5 mg p.o. b.i.d. to target psychosis. Risperdal was discontinue on May 11. 4. OT referral for [place] and other cognitive test. 5. Radiology studies. 6. Start Zyprexa 7.5 at bedtime and p.r.n. Zydis 10 mg p.o. b.i.d on May 11.. 7. Ativan 1 mg in the afternoon discontinue on May 14. 8. Start Zyprexa 5 mg at 16:00 on May 14 Reason for contiued inpatient stay Substantial Risk for: harm to others, inability to function, rapid decompensation and med/psych decompensation Time Spent With Patient Time: Total time managing care of this patient today ____ minutes.
[2022-05-14] MEDS: OLANZapine 2.5 MG TABLET 7.5 MG PO (19:57)
[2022-05-14] MEDS: traZODone HCL 50 MG TABLET PO (19:58)
[2022-05-14] MEDS: Donepezil HCl 10 MG TABLET PO (19:58)
[2022-05-14 20:44] VITALS: BP 115/58; PULSE 74; RESP 20; TEMP 36.4; O2SAT 98
[2022-05-15 06:00] VITALS: BP 97/47; PULSE 91; RESP 18; TEMP 36.6; O2SAT 94
[2022-05-15] MEDS: Levothyroxine Sodium 75 MCG TABLET PO (06:28)
[2022-05-15] MEDS: Sulfamethox/Trimeth 800/160 TABLET 1 TAB PO ×2 (06:29→19:54)
[2022-05-15] MEDS: lisinopriL 10 MG TABLET PO (08:27)
[2022-05-15] MEDS: OLANZapine 5 MG TABLET PO (08:27)
[2022-05-15] MEDS: Sertraline HCL 25 MG TABLET 75 MG PO (08:27)
[2022-05-15] MEDS: Atorvastatin Calcium 20 MG TABLET PO (08:27)
[2022-05-15] MEDS: Memantine HCl 10 MG TABLET PO ×2 (08:27→19:55)
[2022-05-15] MEDS: OLANZapine ODT 10 MG TAB.RAPDIS TRANSLINGU ×2 (09:44→19:58)
[2022-05-15] MEDS: Milk of Magnesia 30 ML ORAL.SUSP PO (09:44)
[2022-05-15 14:37] LABS: Appearance Urine Hazy; Color Urine Yellow; Glucose Urine UA Negative (Negative); Leukocyte Esterase Urine Small (1+) (Negative); Nitrite Urine Negative (Negative); Specific Gravity - Urine >= 1.030 (1.005-1.025); UMIC TRIGGER UACC YES; Urine Blood Negative (Negative); Urine Ketones Negative (Negative); Urine Protein Negative (Neg-Trace)
[2022-05-15 14:40] LABS: Bacteria Urine None Seen (None Seen); Hyaline Casts Urine 0-2 /LPF (0-2); RBC Urine 0-2 /HPF (0-2); Squamous Epithelial Cell Urine 0-2 /HPF (0-2); UACC Culture Trigger YES; WBC Urine 0-5 /HPF (0-5)
--- NOTE | 2022-05-15 15:26 | P.PNPSI_ITS ---
Subjective Subjective Date of Service: 05/15/22 Reason For Visit: Agitation in Dementia Subjective Notes: Conditional Voluntary (By healthcare proxy) Healthcare Proxy: Yes Interim History: The nursing staff reported the patient is less confused but still exit seeking, confused at times but redirectable. The increase of Zyprexa at 04:00 o'clock and 19:00 has help her a little. The social media marketer reported that we will have a family meeting today with her . On the meeting we discussed the rapid deterioration of her cognition even though that she had been fully treated an outpatient specialized services. On interview the patient is confused but pleasant, we will need a urine sample. Mental Status Exam Mental Status Exam Patient Appearance: Well Grooomed Patient Orientation: Person and Situation Level of Consciousness: Awake Patient Behavior: Guarded, Cooperative and Passive Mood Description: Withdrawn Affect Description: Constricted Patient Cognition Impaired: Yes Ability to Follow Directions: Good Speech Pattern: Clear Hallucinations: None Delusions: Paranoid Ideation and Bizarre Thought Process: Distracted Thought Content: positive for [place] and positive for Poverty of Content Judgement: Fair Diagnostics Vital Signs (24Hr): Vital Signs - 24 hr 05/14/22 20:44 05/15/22 06:00 Temperature 97.5 F 97.8 F Pulse Rate 74 91 Respiratory Rate 20 18 Blood Pressure 115/58 L 97/47 L Pulse Oximetry 98 94 Oxygen Delivery Method Room Air Room Air BMI result Body Mass Index 22.5 Labs 05/08/22 15:30 05/10/22 07:48 Labs: Laboratory Results - last 48 hr 05/15/22 13:55 Urine Color Yellow Urine Appearance Hazy Urine pH 6.0 Ur Specific [place] >= 1.030 H Urine Protein Negative Urine Glucose (UA) Negative Urine Ketones Negative Urine Blood Negative Urine Nitrite Negative Ur Leukocyte Esterase Small (1+) H Urine RBC 0-2 Urine WBC 0-5 Ur Squamous Epith Cells 0-2 Urine Bacteria None Seen Hyaline Casts 0-2 Imaging Radiology Impressions: ITS Impressions Head CT 05/14/22 13:40 IMPRESSION: No acute intracranial hemorrhage or territorial infarction. Moderate generalized parenchymal volume loss and mild chronic white matter microangiopathy. Medications Medications Current Medications Acetaminophen (Acetaminophen 325 Mg Tablet) 650 mg PO Q6H PRN PRN Reason: Headache/Pain Mild Scale (1-3) Al Hydroxide/Mg Hydroxide (Magnesium Hydrox/Alum Hydrox 30 Ml Oral.Susp) 30 ml PO Q6H PRN PRN Reason: Heartburn/Nausea Atorvastatin Calcium (Atorvastatin Calcium 20 Mg Tablet) 20 mg PO DAILY [facility] Last Admin: 05/15/22 08:27 Dose: 20 mg Donepezil HCl (Donepezil Hcl 10 Mg Tablet) 10 mg PO BEDTIME [facility] Last Admin: 05/14/22 19:58 Dose: 10 mg Hydroxyzine HCl (Hydroxyzine Hcl 25 Mg Tablet) 25 mg PO Q6H PRN PRN Reason: Anxiety Last Admin: 05/12/22 20:10 Dose: 25 mg Levothyroxine Sodium (Levothyroxine Sodium 75 Mcg Tablet) 75 mcg PO DAILY@0600 [facility] Last Admin: 05/15/22 06:28 Dose: 75 mcg Lisinopril (Lisinopril 10 Mg Tablet) 10 mg PO DAILY [facility]; Protocol Last Admin: 05/15/22 08:27 Dose: 10 mg Magnesium Hydroxide (Milk Of Magnesia 30 Ml Oral.Susp) 30 ml PO DAILY PRN PRN Reason: Constipation Last Admin: 05/15/22 09:44 Dose: 30 ml Memantine (Memantine Hcl 10 Mg Tablet) 10 mg PO BID [facility] Last Admin: 05/15/22 08:27 Dose: 10 mg Olanzapine (Olanzapine 2.5 Mg Tablet) 7.5 mg PO BEDTIME [facility] Last Admin: 05/14/22 19:57 Dose: 7.5 mg Olanzapine (Olanzapine Odt 10 Mg Tab.Rapdis) 10 mg TRANSLINGU BID PRN PRN Reason: Psychosis Last Admin: 05/15/22 09:44 Dose: 10 mg Olanzapine (Olanzapine 5 Mg Tablet) 5 mg PO DAILY [facility] Last Admin: 05/15/22 08:27 Dose: 5 mg Sertraline HCl (Sertraline Hcl 25 Mg Tablet) 75 mg PO DAILY [facility] Last Admin: 05/15/22 08:27 Dose: 75 mg Trazodone HCl (Trazodone Hcl 50 Mg Tablet) 50 mg PO BEDTIME PRN PRN Reason: Insomnia Last Admin: 05/14/22 19:58 Dose: 50 mg Trimethoprim/Sulfamethoxazole (Sulfamethox/Trimeth 800/160 Tablet) 1 tab PO Q12H [facility] Last Admin: 05/15/22 06:29 Dose: 1 tab Allergies Allergies Allergy/AdvReac Type Severity Reaction Status Date / Time No Known Allergies Allergy Unverified 01/21/20 16:10 Assessment & Plan Assessment & Plan (1) Dementia: Qualifiers: Dementia behavioral or psychological symptom: with agitation Dementia severity: moderate Dementia type: unspecified type Qualified Code(s): F03.B11 - Unspecified dementia, moderate, with agitation Status: Acute Code(s): F03.90 - Unspecified dementia, unspecified severity, without behavioral disturbance, psychotic disturbance, mood disturbance, and anxiety (2) Psychosis: Status: Acute Code(s): F29 - Unspecified psychosis not due to a substance or known physiological condition (3) Delirium: Status: Acute Code(s): R41.0 - Disorientation, unspecified Plan The patient is an elderly female with a history of dementia for the last 4 years that have been worsening. The patient had been in the emergency room 3 times in the last weeks we UTI and worsening of delirium with psychotic symptoms. Recently the patient had the fixed delusion that her had been cheating on her and she had been violent. According to her that is not her baseline. Plan 1. Gather collateral information. 2. Continue blood work and urinalysis to rule out acute UTI. 3. Start Risperdal 0.5 mg p.o. b.i.d. to target psychosis. Risperdal was discontinue on May 11. 4. OT referral for [place] and other cognitive test. 5. Radiology studies. 6. Start Zyprexa 7.5 at bedtime and p.r.n. Zydis 10 mg p.o. b.i.d on May 11.. 7. Ativan 1 mg in the afternoon discontinue on May 14. 8. Start Zyprexa 5 mg at 16:00 on May 14 Reason for contiued inpatient stay Substantial Risk for: inability to function, rapid decompensation and med/psych decompensation Time Spent With Patient Time: Total time managing care of this patient today _20___ minutes.
[2022-05-15 18:00] VITALS: BP 108/61; PULSE 87; RESP 17; TEMP 36.4; O2SAT 97
[2022-05-15] MEDS: OLANZapine 2.5 MG TABLET 7.5 MG PO (19:56)
[2022-05-15] MEDS: Donepezil HCl 10 MG TABLET PO (19:56)
[2022-05-16 06:00] VITALS: BP 110/63; PULSE 62; RESP 14; TEMP 36.7; O2SAT 95
[2022-05-16] MEDS: Levothyroxine Sodium 75 MCG TABLET PO (06:41)
[2022-05-16] MEDS: Sulfamethox/Trimeth 800/160 TABLET 1 TAB PO ×2 (06:42→19:50)
[2022-05-16 08:23] LABS: MANUAL DIFF FLAG NO
[2022-05-16 08:26] LABS: Basophils Absolute Auto 0.1 X10*3/uL (0.0-0.2); Basophils Percent Auto 1.1 % (0-2); Eosinophils Absolute Auto 0.3 X10*3/uL (0.0-0.4); Eosinophils Percent Auto 5.1 % (0-4); Hematocrit 41.7 % (37.0-47.0); Hemoglobin 13.4 g/dl (12.0-16.0); Imm Gran Abs Auto 0.02 X10*3/uL (0.00-0.03); Imm Gran Pct Auto 0.3 % (0.0-0.4); Lymphocytes Percent Auto 31.5 % (20-40); Mean Corpuscular HGB Conc 32.1 g/dl (31.0-35.0); Mean Corpuscular Hemoglobin 27.9 pg (27.0-33.0); Mean Corpuscular Volume 86.9 fL (80.0-98.0); Mean Platelet Volume 11.8 fL (9.4-12.3); Monocytes Absolute Auto 0.4 X10*3/uL (0.1-1.2); Neutrophils Absolute Auto 3.5 x10*3/uL (2.0-8.3); Platelet Count 250 X10*3/uL (160-400); Red Cell Distribution Width 13.2 % (11.0-16.0); White Blood Count 6.3 X10*3/uL (4.8-10.8)
[2022-05-16 08:40] LABS: Estimated Average Glucose 117 mg/dL; Hemoglobin A1c % 5.7 %
[2022-05-16 08:57] LABS: Anion Gap 12 (12-20); Blood Urea Nitrogen 19 mg/dL (9-16); Calcium 9.8 mg/dL (8.4-10.2); Carbon Dioxide 27 mmol/L (22-29); Chloride 105 mmol/L (96-108); Cholesterol 133 mg/dL; Creatinine Clr Calc Pharmacy 47.9; Estimated Glomerular Filt Rate 47; Glucose Random 116 mg/dL (60-115); HDL Cholesterol 45 mg/dL; LDL Cholesterol Calculated 76 mg/dl; Potassium 4.7 mmol/L (3.3-5.1); Sodium 139 mmol/L (135-145); Triglycerides 61 mg/dL
[2022-05-16 09:14] LABS: Thyroid Stimulating Hormone 1.24 uIU/mL (0.32-4.0)
[2022-05-16] MEDS: lisinopriL 10 MG TABLET PO (09:51)
[2022-05-16] MEDS: OLANZapine 5 MG TABLET PO (09:51)
[2022-05-16] MEDS: Sertraline HCL 25 MG TABLET 75 MG PO (09:51)
[2022-05-16] MEDS: Atorvastatin Calcium 20 MG TABLET PO (09:51)
[2022-05-16] MEDS: Memantine HCl 10 MG TABLET PO ×2 (09:52→19:50)
[2022-05-16] MEDS: OLANZapine ODT 10 MG TAB.RAPDIS TRANSLINGU ×2 (12:51→19:49)
--- NOTE | 2022-05-16 15:22 | HO.PSYCHPN ---
Subjective Subjective Date of Service: 05/16/22 Reason For Visit: Agitation in Dementia Subjective Notes: Conditional Voluntary (By healthcare proxy) Healthcare Proxy: Yes Interim History: The nursing staff reported the patient is doing better, she is calmer, less agitated but still confused at times. She cannot find her own room and sometimes she goes to the others patient's bathroom. The staff has noticed that she has eaten the chocolate of another patient. Blood work and a UA came back within normal limits, we are waiting for the culture results. At this moment there is no evidence of an active UTI under no evidence of delirium. Today, she was interviewed and she was pleasantly confused, easily redirectable no evidence of paranoia. No evidence of over-sedation with olanzapine. Mental Status Exam Mental Status Exam Patient Appearance: Appropriate Patient Orientation: Person Level of Consciousness: Awake Patient Behavior: Guarded and Passive Mood Description: Withdrawn Affect Description: Constricted Patient Cognition Impaired: Yes Ability to Follow Directions: Good Speech Pattern: Clear Hallucinations: None Delusions: Paranoid Ideation Thought Process: Distracted Thought Content: positive for [place] Judgement: Fair Diagnostics Vital Signs (24Hr): Vital Signs - 24 hr 05/15/22 18:00 05/16/22 06:00 Temperature 97.6 F 98.0 F Pulse Rate 87 62 Respiratory Rate 17 14 Blood Pressure 108/61 110/63 Pulse Oximetry 97 95 Oxygen Delivery Method Room Air Room Air BMI result Body Mass Index 22.5 Labs 05/16/22 08:04 05/16/22 08:04 Labs: Laboratory Results - last 48 hr 05/15/22 05/16/22 05/16/22 13:55 08:04 08:04 WBC 6.3 RBC 4.80 Hgb 13.4 Hct 41.7 MCV 86.9 MCH 27.9 MCHC 32.1 RDW 13.2 Plt Count 250 MPV 11.8 Immature Gran % (Auto) 0.3 Neut % (Auto) 55.0 Lymph % (Auto) 31.5 [place] % (Auto) 7.0 Eos % (Auto) 5.1 H Baso % (Auto) 1.1 Lymph # (Auto) 2.0 [place] # (Auto) 0.4 Eos # (Auto) 0.3 Baso # (Auto) 0.1 Abs Immat Gran (auto) 0.02 Absolute Neuts (auto) 3.5 Absolute Nucleated RBC 0.000 Nucleated RBC % (auto) 0.0 Sodium 139 Potassium 4.7 Chloride 105 Carbon Dioxide 27 Anion Gap 12 BUN 19 H Creatinine 1.15 Estim Creat Clear Calc 47.9 Estimated GFR 47 Random Glucose 116 H Estimat Average Glucose Hemoglobin A1c % Calcium 9.8 Triglycerides 61 Cholesterol 133 LDL Cholesterol, Calc 76 HDL Cholesterol 45 TSH 1.24 Urine Color Yellow Urine Appearance Hazy Urine pH 6.0 Ur Specific [place] >= 1.030 H Urine Protein Negative Urine Glucose (UA) Negative Urine Ketones Negative Urine Blood Negative Urine Nitrite Negative Ur Leukocyte Esterase Small (1+) H Urine RBC 0-2 Urine WBC 0-5 Ur Squamous Epith Cells 0-2 Urine Bacteria None Seen Hyaline Casts 0-2 05/16/22 08:04 WBC RBC Hgb Hct MCV MCH MCHC RDW Plt Count MPV Immature Gran % (Auto) Neut % (Auto) Lymph % (Auto) [place] % (Auto) Eos % (Auto) Baso % (Auto) Lymph # (Auto) [place] # (Auto) Eos # (Auto) Baso # (Auto) Abs Immat Gran (auto) Absolute Neuts (auto) Absolute Nucleated RBC Nucleated RBC % (auto) Sodium Potassium Chloride Carbon Dioxide Anion Gap BUN Creatinine Estim Creat Clear Calc Estimated GFR Random Glucose Estimat Average Glucose 117 Hemoglobin A1c % 5.7 Calcium Triglycerides Cholesterol LDL Cholesterol, Calc HDL Cholesterol TSH Urine Color Urine Appearance Urine pH Ur Specific [place] Urine Protein Urine Glucose (UA) Urine Ketones Urine Blood Urine Nitrite Ur Leukocyte Esterase Urine RBC Urine WBC Ur Squamous Epith Cells Urine Bacteria Hyaline Casts Imaging Radiology Impressions: ITS Impressions Head CT 05/14/22 13:40 IMPRESSION: No acute intracranial hemorrhage or territorial infarction. Moderate generalized parenchymal volume loss and mild chronic white matter microangiopathy. Medications Medications Current Medications Acetaminophen (Acetaminophen 325 Mg Tablet) 650 mg PO Q6H PRN PRN Reason: Headache/Pain Mild Scale (1-3) Al Hydroxide/Mg Hydroxide (Magnesium Hydrox/Alum Hydrox 30 Ml Oral.Susp) 30 ml PO Q6H PRN PRN Reason: Heartburn/Nausea Atorvastatin Calcium (Atorvastatin Calcium 20 Mg Tablet) 20 mg PO DAILY [facility] Last Admin: 05/16/22 09:51 Dose: 20 mg Donepezil HCl (Donepezil Hcl 10 Mg Tablet) 10 mg PO BEDTIME [facility] Last Admin: 05/15/22 19:56 Dose: 10 mg Hydroxyzine HCl (Hydroxyzine Hcl 25 Mg Tablet) 25 mg PO Q6H PRN PRN Reason: Anxiety Last Admin: 05/12/22 20:10 Dose: 25 mg Levothyroxine Sodium (Levothyroxine Sodium 75 Mcg Tablet) 75 mcg PO DAILY@0600 [facility] Last Admin: 05/16/22 06:41 Dose: 75 mcg Lisinopril (Lisinopril 10 Mg Tablet) 10 mg PO DAILY [facility]; Protocol Last Admin: 05/16/22 09:51 Dose: 10 mg Magnesium Hydroxide (Milk Of Magnesia 30 Ml Oral.Susp) 30 ml PO DAILY PRN PRN Reason: Constipation Last Admin: 05/15/22 09:44 Dose: 30 ml Memantine (Memantine Hcl 10 Mg Tablet) 10 mg PO BID [facility] Last Admin: 05/16/22 09:52 Dose: 10 mg Olanzapine (Olanzapine 2.5 Mg Tablet) 7.5 mg PO BEDTIME [facility] Last Admin: 05/15/22 19:56 Dose: 7.5 mg Olanzapine (Olanzapine Odt 10 Mg Tab.Rapdis) 10 mg TRANSLINGU BID PRN PRN Reason: Psychosis Last Admin: 05/16/22 12:51 Dose: 10 mg Olanzapine (Olanzapine 5 Mg Tablet) 5 mg PO DAILY [facility] Last Admin: 05/16/22 09:51 Dose: 5 mg Sertraline HCl (Sertraline Hcl 25 Mg Tablet) 75 mg PO DAILY [facility] Last Admin: 05/16/22 09:51 Dose: 75 mg Trazodone HCl (Trazodone Hcl 50 Mg Tablet) 50 mg PO BEDTIME PRN PRN Reason: Insomnia Last Admin: 05/14/22 19:58 Dose: 50 mg Trimethoprim/Sulfamethoxazole (Sulfamethox/Trimeth 800/160 Tablet) 1 tab PO Q12H [facility] Last Admin: 05/16/22 06:42 Dose: 1 tab Allergies Allergies Allergy/AdvReac Type Severity Reaction Status Date / Time No Known Allergies Allergy Unverified 01/21/20 16:10 Assessment & Plan Assessment & Plan (1) Dementia: Qualifiers: Dementia behavioral or psychological symptom: with agitation Dementia severity: moderate Dementia type: unspecified type Qualified Code(s): F03.B11 - Unspecified dementia, moderate, with agitation Status: Acute Code(s): F03.90 - Unspecified dementia, unspecified severity, without behavioral disturbance, psychotic disturbance, mood disturbance, and anxiety (2) Psychosis: Status: Acute Code(s): F29 - Unspecified psychosis not due to a substance or known physiological condition (3) Delirium: Status: Acute Code(s): R41.0 - Disorientation, unspecified Plan The patient is an elderly female with a history of dementia for the last 4 years that have been worsening. The patient had been in the emergency room 3 times in the last weeks we UTI and worsening of delirium with psychotic symptoms. Recently the patient had the fixed delusion that her had been cheating on her and she had been violent. According to her that is not her baseline. Plan 1. Gather collateral information. 2. Continue blood work and urinalysis to rule out acute UTI. 3. Start Risperdal 0.5 mg p.o. b.i.d. to target psychosis. Risperdal was discontinue on May 11. 4. OT referral for [place] and other cognitive test. 5. Radiology studies. 6. Start Zyprexa 7.5 at bedtime and p.r.n. Zydis 10 mg p.o. b.i.d.. 7. Ativan 1 mg in the afternoon before was discontinue on May 15. 8. We had a family meeting on May 15 and apparently there is the possibility of [place] dementia due to the psychosis and cognitive impairment. At this moment she is on Aricept 10 mg p.o. q.h.s. and amend that higher doses with no improvement. Reason for contiued inpatient stay Substantial Risk for: inability to function, rapid decompensation and med/psych decompensation Time Spent With Patient Time: Total time managing care of this patient today _20___ minutes.
[2022-05-16 18:00] VITALS: BP 113/65; PULSE 67; RESP 18; TEMP 36.2; O2SAT 98
[2022-05-16] MEDS: OLANZapine 2.5 MG TABLET 7.5 MG PO (19:49)
[2022-05-16] MEDS: Donepezil HCl 10 MG TABLET PO (19:50)
[2022-05-16] MEDS: traZODone HCL 50 MG TABLET PO (22:56)
[2022-05-16] MEDS: hydrOXYzine HCL 25 MG TABLET PO (22:56)
[2022-05-17] MEDS: Levothyroxine Sodium 75 MCG TABLET PO (06:19)
[2022-05-17] MEDS: Sulfamethox/Trimeth 800/160 TABLET 1 TAB PO ×2 (06:19→17:03)
[2022-05-17 07:00] VITALS: BMI 22.5
[2022-05-17 07:30] VITALS: BP 90/47; PULSE 87; RESP 15; TEMP 36.2; O2SAT 95
[2022-05-17] MEDS: OLANZapine 5 MG TABLET PO (09:32)
[2022-05-17] MEDS: Sertraline HCL 25 MG TABLET 75 MG PO (09:32)
[2022-05-17] MEDS: Atorvastatin Calcium 20 MG TABLET PO (09:32)
[2022-05-17] MEDS: Memantine HCl 10 MG TABLET PO ×2 (09:32→20:34)
[2022-05-17] MEDS: OLANZapine ODT 10 MG TAB.RAPDIS TRANSLINGU ×2 (13:10→17:25)
--- NOTE | 2022-05-17 16:47 | HO.PSYCHPN ---
Subjective Subjective Date of Service: 05/17/22 Reason For Visit: Agitation in Dementia Subjective Notes: Conditional Voluntary Interim History: The nursing staff reported the patient had been compliant with treatment, she shower yesterday and she slept well last night. She looks more organized and out patient therapist reported that they have been participated attentive in groups. She looks passively exit seeking behavior but easily redirectable. She had been on antibiotics and so far his last urine test is normal. Today on interview the patient was still delusional regarding the cheating on her and she was confused why she was here. Mental Status Exam Mental Status Exam Patient Appearance: Well Grooomed Patient Orientation: Person and Situation Level of Consciousness: Awake and Appropriate Patient Behavior: Guarded and Passive Mood Description: Calm Affect Description: Constricted Patient Cognition Impaired: Yes Ability to Follow Directions: Good Speech Pattern: Clear Hallucinations: None Delusions: Paranoid Ideation and Ideas of Reference Thought Process: Illogical and Distracted Thought Content: positive for [place] and positive for [place] of Content Judgement: Poor Diagnostics Vital Signs (24Hr): Vital Signs - 24 hr 05/16/22 18:00 05/17/22 07:30 Temperature 97.1 F 97.1 F Pulse Rate 67 87 Respiratory Rate 18 15 Blood Pressure 113/65 90/47 L Pulse Oximetry 98 95 Oxygen Delivery Method Room Air Room Air BMI result Body Mass Index 22.5 Labs 05/16/22 08:04 05/16/22 08:04 Labs: Laboratory Results - last 48 hr 05/16/22 05/16/22 05/16/22 08:04 08:04 08:04 WBC 6.3 RBC 4.80 Hgb 13.4 Hct 41.7 MCV 86.9 MCH 27.9 MCHC 32.1 RDW 13.2 Plt Count 250 MPV 11.8 Immature Gran % (Auto) 0.3 Neut % (Auto) 55.0 Lymph % (Auto) 31.5 [place] % (Auto) 7.0 Eos % (Auto) 5.1 H Baso % (Auto) 1.1 Lymph # (Auto) 2.0 [place] # (Auto) 0.4 Eos # (Auto) 0.3 Baso # (Auto) 0.1 Abs Immat Gran (auto) 0.02 Absolute Neuts (auto) 3.5 Absolute Nucleated RBC 0.000 Nucleated RBC % (auto) 0.0 Sodium 139 Potassium 4.7 Chloride 105 Carbon Dioxide 27 Anion Gap 12 BUN 19 H Creatinine 1.15 Estim Creat Clear Calc 47.9 Estimated GFR 47 Random Glucose 116 H Estimat Average Glucose 117 Hemoglobin A1c % 5.7 Calcium 9.8 Triglycerides 61 Cholesterol 133 LDL Cholesterol, Calc 76 HDL Cholesterol 45 TSH 1.24 Imaging Radiology Impressions: ITS Impressions Head CT 05/14/22 13:40 IMPRESSION: No acute intracranial hemorrhage or territorial infarction. Moderate generalized parenchymal volume loss and mild chronic white matter microangiopathy. Medications Medications Current Medications Acetaminophen (Acetaminophen 325 Mg Tablet) 650 mg PO Q6H PRN PRN Reason: Headache/Pain Mild Scale (1-3) Al Hydroxide/Mg Hydroxide (Magnesium Hydrox/Alum Hydrox 30 Ml Oral.Susp) 30 ml PO Q6H PRN PRN Reason: Heartburn/Nausea Atorvastatin Calcium (Atorvastatin Calcium 20 Mg Tablet) 20 mg PO DAILY [facility] Last Admin: 05/17/22 09:32 Dose: 20 mg Donepezil HCl (Donepezil Hcl 10 Mg Tablet) 10 mg PO BEDTIME [facility] Last Admin: 05/16/22 19:50 Dose: 10 mg Hydroxyzine HCl (Hydroxyzine Hcl 25 Mg Tablet) 25 mg PO Q6H PRN PRN Reason: Anxiety Last Admin: 05/16/22 22:56 Dose: 25 mg Levothyroxine Sodium (Levothyroxine Sodium 75 Mcg Tablet) 75 mcg PO DAILY@0600 [facility] Last Admin: 05/17/22 06:19 Dose: 75 mcg Lisinopril (Lisinopril 10 Mg Tablet) 10 mg PO DAILY [facility]; Protocol Last Admin: 05/17/22 09:33 Dose: Not Given Magnesium Hydroxide (Milk Of Magnesia 30 Ml Oral.Susp) 30 ml PO DAILY PRN PRN Reason: Constipation Last Admin: 05/15/22 09:44 Dose: 30 ml Memantine (Memantine Hcl 10 Mg Tablet) 10 mg PO BID [facility] Last Admin: 05/17/22 09:32 Dose: 10 mg Olanzapine (Olanzapine 2.5 Mg Tablet) 7.5 mg PO BEDTIME [facility] Last Admin: 05/16/22 19:49 Dose: 7.5 mg Olanzapine (Olanzapine Odt 10 Mg Tab.Rapdis) 10 mg TRANSLINGU BID PRN PRN Reason: Psychosis Last Admin: 05/17/22 13:10 Dose: 10 mg Olanzapine (Olanzapine 5 Mg Tablet) 5 mg PO DAILY [facility] Last Admin: 05/17/22 09:32 Dose: 5 mg Sertraline HCl (Sertraline Hcl 25 Mg Tablet) 75 mg PO DAILY [facility] Last Admin: 05/17/22 09:32 Dose: 75 mg Trazodone HCl (Trazodone Hcl 50 Mg Tablet) 50 mg PO BEDTIME PRN PRN Reason: Insomnia Last Admin: 05/16/22 22:56 Dose: 50 mg Trimethoprim/Sulfamethoxazole (Sulfamethox/Trimeth 800/160 Tablet) 1 tab PO Q12H [facility] Last Admin: 05/17/22 06:19 Dose: 1 tab Allergies Allergies Allergy/AdvReac Type Severity Reaction Status Date / Time No Known Allergies Allergy Unverified 01/21/20 16:10 Assessment & Plan Assessment & Plan (1) Dementia: Qualifiers: Dementia behavioral or psychological symptom: with agitation Dementia severity: moderate Dementia type: unspecified type Qualified Code(s): F03.B11 - Unspecified dementia, moderate, with agitation Status: Acute Code(s): F03.90 - Unspecified dementia, unspecified severity, without behavioral disturbance, psychotic disturbance, mood disturbance, and anxiety (2) Psychosis: Status: Acute Code(s): F29 - Unspecified psychosis not due to a substance or known physiological condition (3) Delirium: Status: Acute Code(s): R41.0 - Disorientation, unspecified Plan The patient is an elderly female with a history of dementia for the last 4 years that have been worsening. The patient had been in the emergency room 3 times in the last weeks we UTI and worsening of delirium with psychotic symptoms. Recently the patient had the fixed delusion that her had been cheating on her and she had been violent. According to her that is not her baseline. Plan 1. Gather collateral information. 2. Continue blood work and urinalysis to rule out acute UTI. 3. Start Risperdal 0.5 mg p.o. b.i.d. to target psychosis. Risperdal was discontinue on May 11. 4. OT referral for [place] and other cognitive test. 5. Radiology studies. 6. Start Zyprexa 7.5 at bedtime and p.r.n. Zydis 10 mg p.o. b.i.d.. 7. Ativan 1 mg in the afternoon before was discontinue on May 15. 8. We had a family meeting on May 15 and apparently there is the possibility of [place] dementia due to the psychosis and cognitive impairment. At this moment she is on Aricept 10 mg p.o. q.h.s. and amend that higher doses with no improvement. Reason for contiued inpatient stay Substantial Risk for: inability to function, rapid decompensation and med/psych decompensation Time Spent With Patient Time: Total time managing care of this patient today __20__ minutes.
[2022-05-17 18:00] VITALS: BP 138/79; PULSE 61; RESP 18; TEMP 36.3; O2SAT 97
[2022-05-17] MEDS: Donepezil HCl 10 MG TABLET PO (20:34)
[2022-05-17] MEDS: traZODone HCL 50 MG TABLET PO (20:34)
[2022-05-17] MEDS: OLANZapine 2.5 MG TABLET 7.5 MG PO (20:34)
[2022-05-18 06:00] VITALS: BP 110/62; PULSE 68; RESP 17; TEMP 36.3; O2SAT 98
[2022-05-18] MEDS: Levothyroxine Sodium 75 MCG TABLET PO (06:15)
[2022-05-18] MEDS: Sulfamethox/Trimeth 800/160 TABLET 1 TAB PO ×2 (06:15→20:10)
[2022-05-18] MEDS: OLANZapine 5 MG TABLET PO (10:46)
[2022-05-18] MEDS: lisinopriL 10 MG TABLET PO (10:46)
[2022-05-18] MEDS: Atorvastatin Calcium 20 MG TABLET PO (10:46)
[2022-05-18] MEDS: Memantine HCl 10 MG TABLET PO ×2 (10:46→20:09)
[2022-05-18] MEDS: Sertraline HCL 25 MG TABLET 75 MG PO (10:46)
--- NOTE | 2022-05-18 14:03 | HO.PSYCHPN ---
Subjective Subjective Date of Service: 05/18/22 Reason For Visit: Agitation in Dementia Subjective Notes: Conditional Voluntary Interim History: The nursing staff reported the patient has been intrusive and confused, she goes to others patients rooms and takes belongings. She is on one-to-one observation for safety. She remains always anxious and she participates well when she is engageable in a group. On interview the patient remains confused and pleasant. We discussed with the team treatment options and we are going to start trazodone 25 mg p.o. t.i.d. as an anxyolitic. Mental Status Exam Mental Status Exam Patient Appearance: Well Grooomed and Appropriate Patient Orientation: Person Level of Consciousness: Awake Patient Behavior: Guarded and Passive Mood Description: Withdrawn Affect Description: Constricted Patient Cognition Impaired: Yes Ability to Follow Directions: Good Speech Pattern: Clear Hallucinations: None Delusions: Paranoid Ideation Thought Process: Illogical, Distracted and Slowed Thinking Thought Content: positive for [place] and positive for [place] Judgement: Fair Diagnostics Vital Signs (24Hr): Vital Signs - 24 hr 05/17/22 18:00 05/18/22 06:00 Temperature 97.4 F 97.3 F Pulse Rate 61 68 Respiratory Rate 18 17 Blood Pressure 138/79 110/62 Pulse Oximetry 97 98 Oxygen Delivery Method Room Air Room Air BMI result Body Mass Index 22.5 Labs 05/16/22 08:04 05/16/22 08:04 Imaging Radiology Impressions: ITS Impressions Head CT 05/14/22 13:40 IMPRESSION: No acute intracranial hemorrhage or territorial infarction. Moderate generalized parenchymal volume loss and mild chronic white matter microangiopathy. Medications Medications Current Medications Acetaminophen (Acetaminophen 325 Mg Tablet) 650 mg PO Q6H PRN PRN Reason: Headache/Pain Mild Scale (1-3) Al Hydroxide/Mg Hydroxide (Magnesium Hydrox/Alum Hydrox 30 Ml Oral.Susp) 30 ml PO Q6H PRN PRN Reason: Heartburn/Nausea Atorvastatin Calcium (Atorvastatin Calcium 20 Mg Tablet) 20 mg PO DAILY [facility] Last Admin: 05/18/22 10:46 Dose: 20 mg Donepezil HCl (Donepezil Hcl 10 Mg Tablet) 10 mg PO BEDTIME [facility] Last Admin: 05/17/22 20:34 Dose: 10 mg Hydroxyzine HCl (Hydroxyzine Hcl 25 Mg Tablet) 25 mg PO Q6H PRN PRN Reason: Anxiety Last Admin: 05/16/22 22:56 Dose: 25 mg Levothyroxine Sodium (Levothyroxine Sodium 75 Mcg Tablet) 75 mcg PO DAILY@0600 [facility] Last Admin: 05/18/22 06:15 Dose: 75 mcg Lisinopril (Lisinopril 10 Mg Tablet) 10 mg PO DAILY [facility]; Protocol Last Admin: 05/18/22 10:46 Dose: 10 mg Magnesium Hydroxide (Milk Of Magnesia 30 Ml Oral.Susp) 30 ml PO DAILY PRN PRN Reason: Constipation Last Admin: 05/15/22 09:44 Dose: 30 ml Memantine (Memantine Hcl 10 Mg Tablet) 10 mg PO BID [facility] Last Admin: 05/18/22 10:46 Dose: 10 mg Olanzapine (Olanzapine 2.5 Mg Tablet) 7.5 mg PO BEDTIME [facility] Last Admin: 05/17/22 20:34 Dose: 7.5 mg Olanzapine (Olanzapine Odt 10 Mg Tab.Rapdis) 10 mg TRANSLINGU BID PRN PRN Reason: Psychosis Last Admin: 05/17/22 17:25 Dose: 10 mg Olanzapine (Olanzapine 5 Mg Tablet) 5 mg PO DAILY [facility] Last Admin: 05/18/22 10:46 Dose: 5 mg Sertraline HCl (Sertraline Hcl 25 Mg Tablet) 75 mg PO DAILY [facility] Last Admin: 05/18/22 10:46 Dose: 75 mg Trazodone HCl (Trazodone Hcl 50 Mg Tablet) 50 mg PO BEDTIME PRN PRN Reason: Insomnia Last Admin: 05/17/22 20:34 Dose: 50 mg Trazodone HCl (Trazodone Hcl 25 Mg Halftab) 25 mg PO TID [facility] Trimethoprim/Sulfamethoxazole (Sulfamethox/Trimeth 800/160 Tablet) 1 tab PO Q12H [facility] Last Admin: 05/18/22 06:15 Dose: 1 tab Allergies Allergies Allergy/AdvReac Type Severity Reaction Status Date / Time No Known Allergies Allergy Unverified 01/21/20 16:10 Assessment & Plan Assessment & Plan (1) Dementia: Qualifiers: Dementia behavioral or psychological symptom: with agitation Dementia severity: moderate Dementia type: unspecified type Qualified Code(s): F03.B11 - Unspecified dementia, moderate, with agitation Status: Acute Code(s): F03.90 - Unspecified dementia, unspecified severity, without behavioral disturbance, psychotic disturbance, mood disturbance, and anxiety (2) Psychosis: Status: Acute Code(s): F29 - Unspecified psychosis not due to a substance or known physiological condition (3) Delirium: Status: Acute Code(s): R41.0 - Disorientation, unspecified Plan The patient is an elderly female with a history of dementia for the last 4 years that have been worsening. The patient had been in the emergency room 3 times in the last weeks we UTI and worsening of delirium with psychotic symptoms. Recently the patient had the fixed delusion that her had been cheating on her and she had been violent. According to her that is not her baseline. 05/12 continue current treatment plan 05/13 continue current treatment plan Plan 1. Gather collateral information. 2. Continue blood work and urinalysis to rule out acute UTI. 3. Start Risperdal 0.5 mg p.o. b.i.d. to target psychosis. Risperdal was discontinue on May 11. 4. OT referral for [place] and other cognitive test. [place] scored 8/30 5. Radiology studies. 6. Start Zyprexa 7.5 at bedtime and p.r.n. Zydis 10 mg p.o. b.i.d.. 7. Ativan 1 mg in the afternoon before was discontinued on May 17. 8. Trazodone 25 mg p.o. t.i.d. to address anxiety Reason for contiued inpatient stay Substantial Risk for: inability to function, rapid decompensation and med/psych decompensation Time Spent With Patient Time: Total time managing care of this patient today __20__ minutes.
[2022-05-18] MEDS: traZODone HCL 25 MG HALFTAB PO ×2 (16:10→20:09)
[2022-05-18 18:00] VITALS: BP 107/67; PULSE 78; RESP 18; TEMP 36.3; O2SAT 96
[2022-05-18] MEDS: OLANZapine 2.5 MG TABLET 7.5 MG PO (20:09)
[2022-05-18] MEDS: Donepezil HCl 10 MG TABLET PO (20:10)
[2022-05-18] MEDS: traZODone HCL 50 MG TABLET PO ×2 (20:13→22:27)
[2022-05-19] MEDS: OLANZapine ODT 10 MG TAB.RAPDIS TRANSLINGU ×3 (03:43→23:01)
--- NOTE | 2022-05-19 03:55 | PC.NURSE ---
pt very restless. pacing halls and attempting to get in others rooms. sitter states pt attempted to place pillow over roommates face. pt pres in bed talking to herself. given walter jensen
[2022-05-19 06:00] VITALS: BP 93/54; PULSE 16; RESP 16; TEMP 36.3; O2SAT 100
[2022-05-19] MEDS: Sulfamethox/Trimeth 800/160 TABLET 1 TAB PO ×3 (06:07→21:31)
[2022-05-19] MEDS: Levothyroxine Sodium 75 MCG TABLET PO (06:07)
[2022-05-19] MEDS: OLANZapine 5 MG TABLET PO (08:35)
[2022-05-19] MEDS: lisinopriL 10 MG TABLET PO (08:35)
[2022-05-19] MEDS: Sertraline HCL 25 MG TABLET 75 MG PO (08:36)
[2022-05-19] MEDS: Memantine HCl 10 MG TABLET PO ×2 (08:36→21:31)
[2022-05-19] MEDS: Atorvastatin Calcium 20 MG TABLET PO (08:36)
[2022-05-19] MEDS: traZODone HCL 25 MG HALFTAB PO ×3 (08:36→21:31)
--- NOTE | 2022-05-19 17:17 | HO.PSYCHPN ---
Subjective Subjective Date of Service: 05/19/22 Reason For Visit: Agitation in Dementia Interim History: pt remains delusional and disorganized. Last night, pt pushed pillow over roommates face who was sleeping, and stopped by 1:1 sitter. Rn Intake inquired and she said she was not trying to smoother her but just trying to make her quiet since she was making noises. Pt said she will not do it again. Otherwise taking medications. Discussed case w/ nursing who reports patient has sundowning which seems to start around 3pm; will move trazodone dose to 2pmg Mental Status Exam Mental Status Exam Patient Appearance: Well Grooomed and Appropriate Patient Orientation: Person Level of Consciousness: Awake Patient Behavior: Guarded, Cooperative, Aggressive, Good Eye Contact, Impulsive and Sundowning Mood Description: Depressed Affect Description: Constricted Patient Cognition Impaired: Yes Ability to Follow Directions: Fair Speech Pattern: Clear Hallucinations: Auditory (possibly? ) Delusions: Paranoid Ideation Thought Process: Illogical, Distracted, Goal Oriented and Slowed Thinking Thought Content: positive for [place] and positive for Obsessional Thoughts Judgement: Poor Judgement and Insight: severely impaired Diagnostics Vital Signs (24Hr): Vital Signs - 24 hr 05/18/22 18:00 05/19/22 06:00 Temperature 97.3 F 97.3 F Pulse Rate 78 16 L Respiratory Rate 18 16 Blood Pressure 107/67 93/54 L Pulse Oximetry 96 100 Oxygen Delivery Method Room Air Room Air BMI result Body Mass Index 22.5 Labs 05/16/22 08:04 05/16/22 08:04 Imaging Radiology Impressions: ITS Impressions Head CT 05/14/22 13:40 IMPRESSION: No acute intracranial hemorrhage or territorial infarction. Moderate generalized parenchymal volume loss and mild chronic white matter microangiopathy. Medications Medications Current Medications Acetaminophen (Acetaminophen 325 Mg Tablet) 650 mg PO Q6H PRN PRN Reason: Headache/Pain Mild Scale (1-3) Al Hydroxide/Mg Hydroxide (Magnesium Hydrox/Alum Hydrox 30 Ml Oral.Susp) 30 ml PO Q6H PRN PRN Reason: Heartburn/Nausea Atorvastatin Calcium (Atorvastatin Calcium 20 Mg Tablet) 20 mg PO DAILY [facility] Last Admin: 05/19/22 08:36 Dose: 20 mg Donepezil HCl (Donepezil Hcl 10 Mg Tablet) 10 mg PO BEDTIME [facility] Last Admin: 05/18/22 20:10 Dose: 10 mg Hydroxyzine HCl (Hydroxyzine Hcl 25 Mg Tablet) 25 mg PO Q6H PRN PRN Reason: Anxiety Last Admin: 05/16/22 22:56 Dose: 25 mg Levothyroxine Sodium (Levothyroxine Sodium 75 Mcg Tablet) 75 mcg PO DAILY@0600 [facility] Last Admin: 05/19/22 06:07 Dose: 75 mcg Lisinopril (Lisinopril 10 Mg Tablet) 10 mg PO DAILY [facility]; Protocol Last Admin: 05/19/22 08:35 Dose: 10 mg Magnesium Hydroxide (Milk Of Magnesia 30 Ml Oral.Susp) 30 ml PO DAILY PRN PRN Reason: Constipation Last Admin: 05/15/22 09:44 Dose: 30 ml Memantine (Memantine Hcl 10 Mg Tablet) 10 mg PO BID [facility] Last Admin: 05/19/22 08:36 Dose: 10 mg Olanzapine (Olanzapine 2.5 Mg Tablet) 7.5 mg PO BEDTIME [facility] Last Admin: 05/18/22 20:09 Dose: 7.5 mg Olanzapine (Olanzapine Odt 10 Mg Tab.Rapdis) 10 mg TRANSLINGU BID PRN PRN Reason: Psychosis Last Admin: 05/19/22 15:35 Dose: 10 mg Olanzapine (Olanzapine 5 Mg Tablet) 5 mg PO DAILY [facility] Last Admin: 05/19/22 08:35 Dose: 5 mg Sertraline HCl (Sertraline Hcl 25 Mg Tablet) 75 mg PO DAILY [facility] Last Admin: 05/19/22 08:36 Dose: 75 mg Trazodone HCl (Trazodone Hcl 50 Mg Tablet) 50 mg PO BEDTIME PRN PRN Reason: Insomnia Last Admin: 05/18/22 22:27 Dose: 50 mg Trazodone HCl (Trazodone Hcl 25 Mg Halftab) 25 mg PO TID [facility] Last Admin: 05/19/22 15:35 Dose: 25 mg Trimethoprim/Sulfamethoxazole (Sulfamethox/Trimeth 800/160 Tablet) 1 tab PO Q12H [facility] Last Admin: 05/19/22 06:07 Dose: 1 tab Allergies Allergies Allergy/AdvReac Type Severity Reaction Status Date / Time No Known Allergies Allergy Unverified 01/21/20 16:10 Assessment & Plan Assessment & Plan (1) Dementia: Qualifiers: Dementia behavioral or psychological symptom: with agitation Dementia severity: moderate Dementia type: unspecified type Qualified Code(s): F03.B11 - Unspecified dementia, moderate, with agitation Status: Acute Code(s): F03.90 - Unspecified dementia, unspecified severity, without behavioral disturbance, psychotic disturbance, mood disturbance, and anxiety (2) Psychosis: Status: Acute Code(s): F29 - Unspecified psychosis not due to a substance or known physiological condition (3) Delirium: Status: Acute Code(s): R41.0 - Disorientation, unspecified Plan The patient is an elderly female with a history of dementia for the last 4 years that have been worsening. The patient had been in the emergency room 3 times in the last weeks we UTI and worsening of delirium with psychotic symptoms. Recently the patient had the fixed delusion that her had been cheating on her and she had been violent. According to her that is not her baseline. 05/12 continue current treatment plan 05/13 continue current treatment plan 05/19 tried to smoother sleeping roommate with pillow; stopped by 1:1. Pt acknowledges this and says just trying to keep peer quiet Discussed case w/ nursing who reports patient has sundowning which seems to start around 3pm; will move trazodone dose to 2pmg -will also consider changing Zyprexa AM dose to BID with 2.5mg at 9:00 and 2.5mg at 2pm Plan 1. REMAIN ON 1:1 2. Continue blood work and urinalysis to rule out acute UTI. 3. Start Risperdal 0.5 mg p.o. b.i.d. to target psychosis. Risperdal was discontinue on May 11. 4. OT referral for [place] and other cognitive test. [place] scored 830 5. Radiology studies. 6. Start Zyprexa 7.5 at bedtime and p.r.n. Zydis 10 mg p.o. b.i.d.. 7. Ativan 1 mg in the afternoon before sundowning was discontinued on May 17. 8. CHANGE TO Trazodone 25 mg p.o. t.i.d. with 2nd dose at 2pm (instead of 3pm) to better address sundowning Reason for contiued inpatient stay Substantial Risk for: inability to function Time Spent With Patient Time: Total time managing care of this patient today ____ minutes.
[2022-05-19 20:02] VITALS: BP 116/60; PULSE 62; RESP 17; TEMP 36.4; O2SAT 97
[2022-05-19] MEDS: OLANZapine 2.5 MG TABLET 7.5 MG PO (21:30)
[2022-05-19] MEDS: Donepezil HCl 10 MG TABLET PO (21:31)
[2022-05-19] MEDS: traZODone HCL 50 MG TABLET PO (22:59)
[2022-05-20 06:00] VITALS: BP 119/65; PULSE 56; RESP 14; TEMP 36.2; O2SAT 100
[2022-05-20] MEDS: Levothyroxine Sodium 75 MCG TABLET PO (06:36)
--- NOTE | 2022-05-20 10:18 | HO.PSYCHPN ---
Subjective Subjective Date of Service: 05/20/22 Reason For Visit: Agitation in Dementia Interim History: Patient pleasant on approach; remains with significant cognitive impairment and says she is doing really good since she is away from her cheating . Staff reports that patient seems a little better with trazodone given at 14:00. Also think that adding some Zyprexa around that same time would be helpful as patient typically gets Zyprexa p.r.n. anyway. Otherwise patient takes her medications and is eating well. She remains intrusive towards other, talking to herself with delusional ideas. Mental Status Exam Mental Status Exam Patient Appearance: Well Grooomed and Appropriate Patient Orientation: Person Level of Consciousness: Awake Patient Behavior: Guarded, Cooperative, Aggressive, Good Eye Contact, Impulsive and Sundowning Mood Description: Depressed Affect Description: Constricted Patient Cognition Impaired: Yes Ability to Follow Directions: Fair Speech Pattern: Clear Hallucinations: Auditory (possibly? ) Delusions: Paranoid Ideation Thought Process: Illogical, Distracted, Goal Oriented and Slowed Thinking Thought Content: positive for [place] and positive for Obsessional Thoughts Judgement: Poor Judgement and Insight: severely impaired Diagnostics Vital Signs (24Hr): Vital Signs - 24 hr 05/19/22 20:02 05/20/22 06:00 Temperature 97.6 F 97.2 F Pulse Rate 62 56 Respiratory Rate 17 14 Blood Pressure 116/60 119/65 Pulse Oximetry 97 100 Oxygen Delivery Method Room Air Room Air BMI result Body Mass Index 22.5 Labs 05/16/22 08:04 05/16/22 08:04 Imaging Radiology Impressions: ITS Impressions Head CT 05/14/22 13:40 IMPRESSION: No acute intracranial hemorrhage or territorial infarction. Moderate generalized parenchymal volume loss and mild chronic white matter microangiopathy. Medications Medications Current Medications Acetaminophen (Acetaminophen 325 Mg Tablet) 650 mg PO Q6H PRN PRN Reason: Headache/Pain Mild Scale (1-3) Al Hydroxide/Mg Hydroxide (Magnesium Hydrox/Alum Hydrox 30 Ml Oral.Susp) 30 ml PO Q6H PRN PRN Reason: Heartburn/Nausea Atorvastatin Calcium (Atorvastatin Calcium 20 Mg Tablet) 20 mg PO DAILY [facility] Last Admin: 05/19/22 08:36 Dose: 20 mg Donepezil HCl (Donepezil Hcl 10 Mg Tablet) 10 mg PO BEDTIME [facility] Last Admin: 05/19/22 21:31 Dose: 10 mg Hydroxyzine HCl (Hydroxyzine Hcl 25 Mg Tablet) 25 mg PO Q6H PRN PRN Reason: Anxiety Last Admin: 05/16/22 22:56 Dose: 25 mg Levothyroxine Sodium (Levothyroxine Sodium 75 Mcg Tablet) 75 mcg PO DAILY@0600 [facility] Last Admin: 05/20/22 06:36 Dose: 75 mcg Lisinopril (Lisinopril 10 Mg Tablet) 10 mg PO DAILY [facility]; Protocol Last Admin: 05/19/22 08:35 Dose: 10 mg Magnesium Hydroxide (Milk Of Magnesia 30 Ml Oral.Susp) 30 ml PO DAILY PRN PRN Reason: Constipation Last Admin: 05/15/22 09:44 Dose: 30 ml Memantine (Memantine Hcl 10 Mg Tablet) 10 mg PO BID [facility] Last Admin: 05/19/22 21:31 Dose: 10 mg Olanzapine (Olanzapine 2.5 Mg Tablet) 7.5 mg PO BEDTIME [facility] Last Admin: 05/19/22 21:30 Dose: 7.5 mg Olanzapine (Olanzapine Odt 10 Mg Tab.Rapdis) 10 mg TRANSLINGU BID PRN PRN Reason: Psychosis Last Admin: 05/19/22 23:01 Dose: 10 mg Olanzapine (Olanzapine 5 Mg Tablet) 5 mg PO DAILY [facility] Last Admin: 05/19/22 08:35 Dose: 5 mg Sertraline HCl (Sertraline Hcl 25 Mg Tablet) 75 mg PO DAILY [facility] Last Admin: 05/19/22 08:36 Dose: 75 mg Trazodone HCl (Trazodone Hcl 50 Mg Tablet) 50 mg PO BEDTIME PRN PRN Reason: Insomnia Last Admin: 05/19/22 22:59 Dose: 50 mg Trazodone HCl (Trazodone Hcl 25 Mg Halftab) 25 mg PO TID@0900,1400,2100 [facility] Trimethoprim/Sulfamethoxazole (Sulfamethox/Trimeth 800/160 Tablet) 1 tab PO Q12H [facility] Last Admin: 05/19/22 21:31 Dose: 1 tab Allergies Allergies Allergy/AdvReac Type Severity Reaction Status Date / Time No Known Allergies Allergy Unverified 01/21/20 16:10 Assessment & Plan Assessment & Plan (1) Dementia: Qualifiers: Dementia behavioral or psychological symptom: with agitation Dementia severity: moderate Dementia type: unspecified type Qualified Code(s): F03.B11 - Unspecified dementia, moderate, with agitation Status: Acute Code(s): F03.90 - Unspecified dementia, unspecified severity, without behavioral disturbance, psychotic disturbance, mood disturbance, and anxiety (2) Psychosis: Status: Acute Code(s): F29 - Unspecified psychosis not due to a substance or known physiological condition (3) Delirium: Status: Acute Code(s): R41.0 - Disorientation, unspecified Plan The patient is an elderly female with a history of dementia for the last 4 years that have been worsening. The patient had been in the emergency room 3 times in the last weeks we UTI and worsening of delirium with psychotic symptoms. Recently the patient had the fixed delusion that her had been cheating on her and she had been violent. According to her that is not her baseline. 05/12 continue current treatment plan 05/13 continue current treatment plan 05/19 tried to smoother sleeping roommate with pillow; stopped by 1:1. Pt acknowledges this and says just trying to keep peer quiet Discussed case w/ nursing who reports patient has sundowning which seems to start around 3pm; will move trazodone dose to 2pmg -will also consider changing Zyprexa AM dose to BID with 2.5mg at 9:00 and 2.5mg at 2pm 05/20 little better with trazodone at 14:00; will defer to primary team whether to split up Zyprexa as well. Plan 1. REMAIN ON 1:1 2. Continue blood work and urinalysis to rule out acute UTI. 3. Start Risperdal 0.5 mg p.o. b.i.d. to target psychosis. Risperdal was discontinue on May 11. 4. OT referral for [place] and other cognitive test. [place] scored 01/02 5. Radiology studies. 6. Start Zyprexa 7.5 at bedtime and p.r.n. Zydis 10 mg p.o. b.i.d.. 7. Ativan 1 mg in the afternoon before sundowning was discontinued on May 17. 8. CHANGE TO Trazodone 25 mg p.o. t.i.d. with 2nd dose at 2pm (instead of 3pm) to better address sundowning Patient educated on: diagnosis Informed Consent: does not understand Reason for contiued inpatient stay Substantial Risk for: inability to function Time Spent With Patient Time: Total time managing care of this patient today ____ minutes.
[2022-05-20] MEDS: Memantine HCl 10 MG TABLET PO ×2 (10:53→19:43)
[2022-05-20] MEDS: Sertraline HCL 25 MG TABLET 75 MG PO (10:53)
[2022-05-20] MEDS: traZODone HCL 25 MG HALFTAB PO ×3 (10:54→19:43)
[2022-05-20] MEDS: Sulfamethox/Trimeth 800/160 TABLET 1 TAB PO ×2 (10:54→19:43)
[2022-05-20] MEDS: OLANZapine 5 MG TABLET PO (10:54)
[2022-05-20] MEDS: lisinopriL 10 MG TABLET PO (10:55)
[2022-05-20] MEDS: Atorvastatin Calcium 20 MG TABLET PO (10:55)
[2022-05-20] MEDS: OLANZapine ODT 10 MG TAB.RAPDIS TRANSLINGU ×2 (13:13→19:43)
[2022-05-20] MEDS: hydrOXYzine HCL 25 MG TABLET PO ×2 (16:24→21:32)
[2022-05-20 18:00] VITALS: BP 99/54; PULSE 64; RESP 16; TEMP 36.2; O2SAT 98
[2022-05-20] MEDS: Donepezil HCl 10 MG TABLET PO (19:43)
[2022-05-20] MEDS: traZODone HCL 50 MG TABLET PO ×2 (19:43→21:32)
[2022-05-20] MEDS: OLANZapine 2.5 MG TABLET 7.5 MG PO (19:43)
[2022-05-21 06:00] VITALS: BP 118/55; PULSE 63; RESP 16; TEMP 36.2; O2SAT 100
[2022-05-21] MEDS: Levothyroxine Sodium 75 MCG TABLET PO (06:15)
[2022-05-21] MEDS: Sertraline HCL 25 MG TABLET 75 MG PO (08:47)
[2022-05-21] MEDS: Memantine HCl 10 MG TABLET PO ×2 (08:47→19:40)
[2022-05-21] MEDS: lisinopriL 10 MG TABLET PO (08:47)
[2022-05-21] MEDS: Atorvastatin Calcium 20 MG TABLET PO (08:47)
[2022-05-21] MEDS: OLANZapine 5 MG TABLET PO (08:47)
[2022-05-21] MEDS: Sulfamethox/Trimeth 800/160 TABLET 1 TAB PO ×2 (08:48→19:40)
[2022-05-21] MEDS: traZODone HCL 25 MG HALFTAB PO ×3 (13:05→21:05)
--- NOTE | 2022-05-21 14:53 | P.PNPSI_ITS ---
Subjective Subjective Date of Service: 05/21/22 Reason For Visit: Agitation in Dementia Interim History: The nursing staff reported the patient is on one-to-one because she had been very intrusive with peers. Over the weekend the provider discussed the possibility of split the Zyprexa during the day. She was seen by the staff self dialogue in probably responding to internal stimuli. The staff has noticed that the patient is still delusional stating that her daughter is going to have a baby. On interview the patient is confused but easily redirectable. We will increased Zyprexa during the day to target psychosis and mood lability Mental Status Exam Mental Status Exam Patient Appearance: Appropriate Patient Orientation: Person Level of Consciousness: Restless and Alert Patient Behavior: Guarded and Suspicious Mood Description: Withdrawn Affect Description: Labile Patient Cognition Impaired: Yes Ability to Follow Directions: Good Speech Pattern: Clear Hallucinations: Auditory Delusions: Paranoid Ideation and Ideas of Reference Thought Process: Illogical and Evasive Thought Content: positive for [place] and positive for Circumstantial Judgement: Poor Diagnostics Vital Signs (24Hr): Vital Signs - 24 hr 05/20/22 18:00 05/21/22 06:00 Temperature 97.1 F 97.1 F Pulse Rate 64 63 Respiratory Rate 16 16 Blood Pressure 99/54 L 118/55 L Pulse Oximetry 98 100 Oxygen Delivery Method Room Air Room Air BMI result Body Mass Index 22.5 Labs 05/16/22 08:04 05/16/22 08:04 Imaging Radiology Impressions: ITS Impressions Head CT 05/14/22 13:40 IMPRESSION: No acute intracranial hemorrhage or territorial infarction. Moderate generalized parenchymal volume loss and mild chronic white matter microangiopathy. Medications Medications Current Medications Acetaminophen (Acetaminophen 325 Mg Tablet) 650 mg PO Q6H PRN PRN Reason: Headache/Pain Mild Scale (1-3) Al Hydroxide/Mg Hydroxide (Magnesium Hydrox/Alum Hydrox 30 Ml Oral.Susp) 30 ml PO Q6H PRN PRN Reason: Heartburn/Nausea Atorvastatin Calcium (Atorvastatin Calcium 20 Mg Tablet) 20 mg PO DAILY [facility] Last Admin: 05/21/22 08:47 Dose: 20 mg Donepezil HCl (Donepezil Hcl 10 Mg Tablet) 10 mg PO BEDTIME [facility] Last Admin: 05/20/22 19:43 Dose: 10 mg Hydroxyzine HCl (Hydroxyzine Hcl 25 Mg Tablet) 25 mg PO Q6H PRN PRN Reason: Anxiety Last Admin: 05/20/22 21:32 Dose: 25 mg Levothyroxine Sodium (Levothyroxine Sodium 75 Mcg Tablet) 75 mcg PO DAILY@0600 [facility] Last Admin: 05/21/22 06:15 Dose: 75 mcg Lisinopril (Lisinopril 10 Mg Tablet) 10 mg PO DAILY [facility] [place]; Protocol Last Admin: 05/21/22 08:47 Dose: 10 mg Magnesium Hydroxide (Milk Of Magnesia 30 Ml Oral.Susp) 30 ml PO DAILY PRN PRN Reason: Constipation Last Admin: 05/15/22 09:44 Dose: 30 ml Memantine (Memantine Hcl 10 Mg Tablet) 10 mg PO BID [facility] [place] Last Admin: 05/21/22 08:47 Dose: 10 mg Olanzapine (Olanzapine 2.5 Mg Tablet) 7.5 mg PO BEDTIME [facility] Last Admin: 05/20/22 19:43 Dose: 7.5 mg Olanzapine (Olanzapine Odt 10 Mg Tab.Rapdis) 10 mg TRANSLINGU BID PRN PRN Reason: Psychosis Last Admin: 05/20/22 19:43 Dose: 10 mg Olanzapine (Olanzapine 5 Mg Tablet) 5 mg PO DAILY [facility] [place] Last Admin: 05/21/22 08:47 Dose: 5 mg Sertraline HCl (Sertraline Hcl 25 Mg Tablet) 75 mg PO DAILY [facility] Last Admin: 05/21/22 08:47 Dose: 75 mg Trazodone HCl (Trazodone Hcl 50 Mg Tablet) 50 mg PO BEDTIME PRN PRN Reason: Insomnia Last Admin: 05/20/22 21:32 Dose: 50 mg Trazodone HCl (Trazodone Hcl 25 Mg Halftab) 25 mg PO TID@0900,1400,2100 [facility] Last Admin: 05/21/22 13:05 Dose: 25 mg Trimethoprim/Sulfamethoxazole (Sulfamethox/Trimeth 800/160 Tablet) 1 tab PO Q12H [facility] Last Admin: 05/21/22 08:48 Dose: 1 tab Allergies Allergies Allergy/AdvReac Type Severity Reaction Status Date / Time No Known Allergies Allergy Unverified 01/21/20 16:10 Assessment & Plan Assessment & Plan (1) Dementia: Qualifiers: Dementia behavioral or psychological symptom: with agitation Dementia severity: moderate Dementia type: unspecified type Qualified Code(s): F03.B11 - Unspecified dementia, moderate, with agitation Status: Acute Code(s): F03.90 - Unspecified dementia, unspecified severity, without behavioral disturbance, psychotic disturbance, mood disturbance, and anxiety (2) Psychosis: Status: Acute Code(s): F29 - Unspecified psychosis not due to a substance or known physiological condition (3) Delirium: Status: Acute Code(s): R41.0 - Disorientation, unspecified Plan The patient is an elderly female with a history of dementia for the last 4 years that have been worsening. The patient had been in the emergency room 3 times in the last weeks we UTI and worsening of delirium with psychotic symptoms. Recently the patient had the fixed delusion that her had been cheating on her and she had been violent. According to her that is not her baseline. 05/12 continue current treatment plan 05/13 continue current treatment plan 05/19 tried to smoother sleeping roommate with pillow; stopped by 1:1. Pt acknowledges this and says just trying to keep peer quiet Discussed case w/ nursing who reports patient has sundowning which seems to start around 3pm; will move trazodone dose to 2pmg -will also consider changing Zyprexa AM dose to BID with 2.5mg at 9:00 and 2.5mg at 2pm 05/20 little better with trazodone at 14:00; will defer to primary team whether to split up Zyprexa as well. Plan 1. REMAIN ON 1:1 2. Continue blood work and urinalysis to rule out acute UTI. 3. Start Risperdal 0.5 mg p.o. b.i.d. to target psychosis. Risperdal was discontinue on May 11. 4. OT referral for [place] and other cognitive test. [place] scored 01/02 5. Radiology studies. 6. Start Zyprexa 7.5 at bedtime and p.r.n. Zydis 10 mg p.o. b.i.d.. 7. Ativan 1 mg in the afternoon before sundowning was discontinued on May 17. 8. CHANGE TO Trazodone 25 mg p.o. t.i.d. with 2nd dose at 2pm (instead of 3pm) to better address sundowning 9. Start Zyprexa 2.5 mg in the morning Reason for contiued inpatient stay Substantial Risk for: inability to function, rapid decompensation and med/psych decompensation Time Spent With Patient Time: Total time managing care of this patient today ___20_ minutes.
[2022-05-21 18:00] VITALS: BP 131/67; PULSE 72; RESP 16; TEMP 36.4; O2SAT 97
[2022-05-21] MEDS: OLANZapine 2.5 MG TABLET 7.5 MG PO (19:39)
[2022-05-21] MEDS: traZODone HCL 50 MG TABLET PO (19:40)
[2022-05-21] MEDS: hydrOXYzine HCL 25 MG TABLET PO (19:40)
[2022-05-21] MEDS: Donepezil HCl 10 MG TABLET PO (19:40)
[2022-05-21] MEDS: OLANZapine ODT 10 MG TAB.RAPDIS TRANSLINGU (19:40)
[2022-05-21] MEDS: Acetaminophen 325 MG TABLET 650 MG PO (19:41)
[2022-05-22] MEDS: Levothyroxine Sodium 75 MCG TABLET PO (05:48)
[2022-05-22] MEDS: Sertraline HCL 25 MG TABLET 75 MG PO (09:59)
[2022-05-22] MEDS: OLANZapine 2.5 MG TABLET PO (09:59)
[2022-05-22] MEDS: Atorvastatin Calcium 20 MG TABLET PO (09:59)
[2022-05-22] MEDS: lisinopriL 10 MG TABLET PO (10:00)
[2022-05-22] MEDS: Sulfamethox/Trimeth 800/160 TABLET 1 TAB PO ×2 (10:00→21:36)
[2022-05-22] MEDS: OLANZapine 5 MG TABLET PO (10:00)
[2022-05-22] MEDS: Memantine HCl 10 MG TABLET PO ×2 (10:00→21:36)
[2022-05-22] MEDS: traZODone HCL 50 MG TABLET PO ×4 (10:03→22:16)
--- NOTE | 2022-05-22 13:34 | HO.PSYCHPN ---
Subjective Subjective Date of Service: 05/22/22 Reason For Visit: Agitation in Dementia Subjective Notes: Conditional Voluntary Interim History: The nursing staff reported the patient had been restless, she was not sleeping at night and she needed to be medicated p.r.n. admitted night with olanzapine. Today in the morning she was still sleeping. The occupational therapist reported that she had 10 to groups but she has been restless. The staff has noticed that she has not been over-sedated with trazodone so we will increase it to target anxiety. On interview the patient remains confused, able to contract for safety in the facility. She stated that her wants to keep her here, unable to have any insight into her cognitive deficits. Mental Status Exam Mental Status Exam Patient Appearance: Well Grooomed and Appropriate Patient Orientation: Person Level of Consciousness: Awake and Appropriate Patient Behavior: Guarded, Wandering and Anxious Mood Description: Withdrawn Affect Description: Labile Patient Cognition Impaired: Yes Ability to Follow Directions: Fair Speech Pattern: Clear Hallucinations: None Delusions: Paranoid Ideation and Ideas of Reference Thought Process: Illogical, Distracted and Slowed Thinking Thought Content: positive for [place], positive for Circumstantial and positive for Poverty of Content Judgement: Fair Diagnostics Vital Signs (24Hr): Vital Signs - 24 hr 05/21/22 18:00 Temperature 97.6 F Pulse Rate 72 Respiratory Rate 16 Blood Pressure 131/67 Pulse Oximetry 97 Oxygen Delivery Method Room Air BMI result Body Mass Index 22.5 Labs 05/16/22 08:04 05/16/22 08:04 Imaging Radiology Impressions: ITS Impressions Head CT 05/14/22 13:40 IMPRESSION: No acute intracranial hemorrhage or territorial infarction. Moderate generalized parenchymal volume loss and mild chronic white matter microangiopathy. Medications Medications Current Medications Acetaminophen (Acetaminophen 325 Mg Tablet) 650 mg PO Q6H PRN PRN Reason: Headache/Pain Mild Scale (1-3) Last Admin: 05/21/22 19:41 Dose: 650 mg Al Hydroxide/Mg Hydroxide (Magnesium Hydrox/Alum Hydrox 30 Ml Oral.Susp) 30 ml PO Q6H PRN PRN Reason: Heartburn/Nausea Atorvastatin Calcium (Atorvastatin Calcium 20 Mg Tablet) 20 mg PO DAILY [facility] Last Admin: 05/22/22 09:59 Dose: 20 mg Donepezil HCl (Donepezil Hcl 10 Mg Tablet) 10 mg PO BEDTIME [facility] Last Admin: 05/21/22 19:40 Dose: 10 mg Levothyroxine Sodium (Levothyroxine Sodium 75 Mcg Tablet) 75 mcg PO DAILY@0600 [facility] Last Admin: 05/22/22 05:48 Dose: 75 mcg Lisinopril (Lisinopril 10 Mg Tablet) 10 mg PO DAILY [facility]; Protocol Last Admin: 05/22/22 10:00 Dose: 10 mg Magnesium Hydroxide (Milk Of Magnesia 30 Ml Oral.Susp) 30 ml PO DAILY PRN PRN Reason: Constipation Last Admin: 05/15/22 09:44 Dose: 30 ml Memantine (Memantine Hcl 10 Mg Tablet) 10 mg PO BID [facility] Last Admin: 05/22/22 10:00 Dose: 10 mg Olanzapine (Olanzapine 2.5 Mg Tablet) 7.5 mg PO BEDTIME [facility] Last Admin: 05/21/22 19:39 Dose: 7.5 mg Olanzapine (Olanzapine Odt 10 Mg Tab.Rapdis) 10 mg TRANSLINGU BID PRN PRN Reason: Psychosis Last Admin: 05/21/22 19:40 Dose: 10 mg Olanzapine (Olanzapine 5 Mg Tablet) 5 mg PO DAILY [facility] Last Admin: 05/22/22 10:00 Dose: 5 mg Olanzapine (Olanzapine 2.5 Mg Tablet) 2.5 mg PO DAILY [facility] Last Admin: 05/22/22 09:59 Dose: 2.5 mg Sertraline HCl (Sertraline Hcl 25 Mg Tablet) 75 mg PO DAILY [facility] Last Admin: 05/22/22 09:59 Dose: 75 mg Trazodone HCl (Trazodone Hcl 50 Mg Tablet) 50 mg PO BEDTIME PRN PRN Reason: Insomnia Last Admin: 05/21/22 19:40 Dose: 50 mg Trazodone HCl (Trazodone Hcl 50 Mg Tablet) 50 mg PO TID@0900,1400,2100 [facility] Last Admin: 05/22/22 10:03 Dose: 50 mg Trazodone HCl (Trazodone Hcl 50 Mg Tablet) 50 mg PO TID PRN PRN Reason: Anxiety Trimethoprim/Sulfamethoxazole (Sulfamethox/Trimeth 800/160 Tablet) 1 tab PO Q12H [facility] Last Admin: 05/22/22 10:00 Dose: 1 tab Allergies Allergies Allergy/AdvReac Type Severity Reaction Status Date / Time No Known Allergies Allergy Unverified 01/21/20 16:10 Assessment & Plan Assessment & Plan (1) Dementia: Qualifiers: Dementia behavioral or psychological symptom: with agitation Dementia severity: moderate Dementia type: unspecified type Qualified Code(s): F03.B11 - Unspecified dementia, moderate, with agitation Status: Acute Code(s): F03.90 - Unspecified dementia, unspecified severity, without behavioral disturbance, psychotic disturbance, mood disturbance, and anxiety (2) Psychosis: Status: Acute Code(s): F29 - Unspecified psychosis not due to a substance or known physiological condition (3) Delirium: Status: Acute Code(s): R41.0 - Disorientation, unspecified Plan The patient is an elderly female with a history of dementia for the last 4 years that have been worsening. The patient had been in the emergency room 3 times in the last weeks we UTI and worsening of delirium with psychotic symptoms. Recently the patient had the fixed delusion that her had been cheating on her and she had been violent. According to her that is not her baseline. 05/12 continue current treatment plan 05/13 continue current treatment plan 05/19 tried to smoother sleeping roommate with pillow; stopped by 1:1. Pt acknowledges this and says just trying to keep peer quiet Discussed case w/ nursing who reports patient has sundowning which seems to start around 3pm; will move trazodone dose to 2pmg -will also consider changing Zyprexa AM dose to BID with 2.5mg at 9:00 and 2.5mg at 2pm 05/20 little better with trazodone at 14:00; will defer to primary team whether to split up Zyprexa as well. Plan 1. REMAIN ON 1:1 2. Continue blood work and urinalysis to rule out acute UTI. 3. Start Risperdal 0.5 mg p.o. b.i.d. to target psychosis. Risperdal was discontinue on May 11. 4. OT referral for Hubbard and other cognitive test. Hubbard scored 830 5. Radiology studies. 6. Start Zyprexa 7.5 at bedtime and p.r.n. Zydis 10 mg p.o. b.i.d.. 7. Ativan 1 mg in the afternoon before sundowning was discontinued on May 17. 8. CHANGE TO Trazodone 25 mg p.o. t.i.d. with 2nd dose at 2pm (instead of 3pm) to better address . Trazodone was increased up to 50 mg p.o. t.i.d. to target anxiety on May 22. Start Zyprexa 2.5 mg in the morning on May 20. Trazodone 50 mg p.o. b.i.d. p.r.n. anxiety. We will discontinue Atarax because it could disinhibited and confused her due to the anticholinergic effect. Reason for contiued inpatient stay Substantial Risk for: inability to function, rapid decompensation and med/psych decompensation Time Spent With Patient Time: Total time managing care of this patient today __20__ minutes.
[2022-05-22 18:00] VITALS: BP 104/70; PULSE 76; RESP 18; TEMP 36.1; O2SAT 98
[2022-05-22] MEDS: OLANZapine 2.5 MG TABLET 7.5 MG PO (21:36)
[2022-05-22] MEDS: Donepezil HCl 10 MG TABLET PO (21:36)
[2022-05-23] MEDS: traZODone HCL 50 MG TABLET PO ×4 (03:26→20:04)
[2022-05-23] MEDS: Levothyroxine Sodium 75 MCG TABLET PO (06:36)
[2022-05-23 07:30] VITALS: BP 112/71; PULSE 61; RESP 17; TEMP 35.7; O2SAT 99
--- NOTE | 2022-05-23 07:52 | HO.PSYCHPN ---
Subjective Subjective Date of Service: 05/23/22 Reason For Visit: Agitation in Dementia Subjective Notes: Conditional Voluntary Interim History: The nursing staff reported the patient did not sleep at all last night, they used p.r.n. trazodone and Zyprexa at night with no improvement. On interview the patient reports that she wants to go back home and she is still delusional against her . We review her meds and we will increase Zyprexa up to 10 mg p.o. q.h.s., keeps Zyprexa 2.5 in the morning and 5 mg at 16:00. Mental Status Exam Mental Status Exam Patient Appearance: Well Grooomed Patient Orientation: Person and Situation Level of Consciousness: Awake and Appropriate Patient Behavior: Guarded and Passive Mood Description: Anxious and Apprehensive Affect Description: Labile Patient Cognition Impaired: Yes Ability to Follow Directions: Good Speech Pattern: Clear Hallucinations: None Delusions: Paranoid Ideation Thought Process: Distracted and Evasive Thought Content: positive for [place] and positive for Loose Associations Judgement: Fair Diagnostics Vital Signs (24Hr): Vital Signs - 24 hr 05/22/22 18:00 Temperature 97.0 F Pulse Rate 76 Respiratory Rate 18 Blood Pressure 104/70 Pulse Oximetry 98 Oxygen Delivery Method Room Air BMI result Body Mass Index 22.5 Labs 05/16/22 08:04 05/16/22 08:04 Imaging Radiology Impressions: ITS Impressions Head CT 05/14/22 13:40 IMPRESSION: No acute intracranial hemorrhage or territorial infarction. Moderate generalized parenchymal volume loss and mild chronic white matter microangiopathy. Medications Medications Current Medications Acetaminophen (Acetaminophen 325 Mg Tablet) 650 mg PO Q6H PRN PRN Reason: Headache/Pain Mild Scale (1-3) Last Admin: 05/21/22 19:41 Dose: 650 mg Al Hydroxide/Mg Hydroxide (Magnesium Hydrox/Alum Hydrox 30 Ml Oral.Susp) 30 ml PO Q6H PRN PRN Reason: Heartburn/Nausea Atorvastatin Calcium (Atorvastatin Calcium 20 Mg Tablet) 20 mg PO DAILY [facility] Last Admin: 05/22/22 09:59 Dose: 20 mg Donepezil HCl (Donepezil Hcl 10 Mg Tablet) 10 mg PO BEDTIME [facility] Last Admin: 05/22/22 21:36 Dose: 10 mg Levothyroxine Sodium (Levothyroxine Sodium 75 Mcg Tablet) 75 mcg PO DAILY@0600 [facility] Last Admin: 05/23/22 06:36 Dose: 75 mcg Lisinopril (Lisinopril 10 Mg Tablet) 10 mg PO DAILY [facility]; Protocol Last Admin: 05/22/22 10:00 Dose: 10 mg Magnesium Hydroxide (Milk Of Magnesia 30 Ml Oral.Susp) 30 ml PO DAILY PRN PRN Reason: Constipation Last Admin: 05/15/22 09:44 Dose: 30 ml Memantine (Memantine Hcl 10 Mg Tablet) 10 mg PO BID [facility] Last Admin: 05/22/22 21:36 Dose: 10 mg Olanzapine (Olanzapine 2.5 Mg Tablet) 7.5 mg PO BEDTIME [facility] Last Admin: 05/22/22 21:36 Dose: 7.5 mg Olanzapine (Olanzapine Odt 10 Mg Tab.Rapdis) 10 mg TRANSLINGU BID PRN PRN Reason: Psychosis Last Admin: 05/21/22 19:40 Dose: 10 mg Olanzapine (Olanzapine 5 Mg Tablet) 5 mg PO DAILY [facility] Last Admin: 05/22/22 10:00 Dose: 5 mg Olanzapine (Olanzapine 2.5 Mg Tablet) 2.5 mg PO DAILY [facility] Last Admin: 05/22/22 09:59 Dose: 2.5 mg Sertraline HCl (Sertraline Hcl 25 Mg Tablet) 75 mg PO DAILY [facility] Last Admin: 05/22/22 09:59 Dose: 75 mg Trazodone HCl (Trazodone Hcl 50 Mg Tablet) 50 mg PO BEDTIME PRN PRN Reason: Insomnia Last Admin: 05/21/22 19:40 Dose: 50 mg Trazodone HCl (Trazodone Hcl 50 Mg Tablet) 50 mg PO TID@0900,1400,2100 [facility] Last Admin: 05/22/22 22:16 Dose: 50 mg Trazodone HCl (Trazodone Hcl 50 Mg Tablet) 50 mg PO TID PRN PRN Reason: Anxiety Last Admin: 05/23/22 03:26 Dose: 50 mg Trimethoprim/Sulfamethoxazole (Sulfamethox/Trimeth 800/160 Tablet) 1 tab PO Q12H [facility] Last Admin: 05/22/22 21:36 Dose: 1 tab Allergies Allergies Allergy/AdvReac Type Severity Reaction Status Date / Time No Known Allergies Allergy Unverified 01/21/20 16:10 Assessment & Plan Assessment & Plan (1) Dementia: Qualifiers: Dementia behavioral or psychological symptom: with agitation Dementia severity: moderate Dementia type: unspecified type Qualified Code(s): F03.B11 - Unspecified dementia, moderate, with agitation Status: Acute Code(s): F03.90 - Unspecified dementia, unspecified severity, without behavioral disturbance, psychotic disturbance, mood disturbance, and anxiety (2) Psychosis: Status: Acute Code(s): F29 - Unspecified psychosis not due to a substance or known physiological condition (3) Delirium: Status: Acute Code(s): R41.0 - Disorientation, unspecified Plan The patient is an elderly female with a history of dementia for the last 4 years that have been worsening. The patient had been in the emergency room 3 times in the last weeks we UTI and worsening of delirium with psychotic symptoms. Recently the patient had the fixed delusion that her had been cheating on her and she had been violent. According to her that is not her baseline. 05/12 continue current treatment plan 05/13 continue current treatment plan 05/19 tried to smoother sleeping roommate with pillow; stopped by 1:1. Pt acknowledges this and says just trying to keep peer quiet Discussed case w/ nursing who reports patient has sundowning which seems to start around 3pm; will move trazodone dose to 2pmg -will also consider changing Zyprexa AM dose to BID with 2.5mg at 9:00 and 2.5mg at 2pm 05/20 little better with trazodone at 14:00; will defer to primary team whether to split up Zyprexa as well. Plan 1. REMAIN ON 1:1 2. Continue blood work and urinalysis to rule out acute UTI. 3. Start Risperdal 0.5 mg p.o. b.i.d. to target psychosis. Risperdal was discontinue on May 11. 4. OT referral for Jenkins and other cognitive test. Jenkins scored 01/02 5. Radiology studies. 6. Start Zyprexa 7.5 at bedtime and p.r.n. Zydis 10 mg p.o. b.i.d.. On May 22 we increased Zyprexa up to 10 mg at bedtime. 7. Ativan 1 mg in the afternoon before sundowning was discontinued on May 17 due to disinhibition.. 8. CHANGE TO Trazodone 25 mg p.o. t.i.d. with 2nd dose at 2pm (instead of 3pm) to better address . Trazodone was increased up to 50 mg p.o. t.i.d. to target anxiety on May 22. 9. Start Zyprexa 2.5 mg in the morning on May 20. 10. Trazodone 50 mg p.o. b.i.d. p.r.n. anxiety. We will discontinue Atarax because it could disinhibited and confused her due to the anticholinergic effect. Reason for contiued inpatient stay Substantial Risk for: inability to function, rapid decompensation and med/psych decompensation Time Spent With Patient Time: Total time managing care of this patient today __20__ minutes.
[2022-05-23] MEDS: Sertraline HCL 25 MG TABLET 75 MG PO (08:10)
[2022-05-23] MEDS: OLANZapine 2.5 MG TABLET PO (08:11)
[2022-05-23] MEDS: Atorvastatin Calcium 20 MG TABLET PO (08:12)
[2022-05-23] MEDS: lisinopriL 10 MG TABLET PO (08:12)
[2022-05-23] MEDS: Memantine HCl 10 MG TABLET PO ×2 (08:12→20:03)
[2022-05-23] MEDS: Sulfamethox/Trimeth 800/160 TABLET 1 TAB PO ×2 (08:12→20:03)
[2022-05-23] MEDS: OLANZapine ODT 10 MG TAB.RAPDIS TRANSLINGU (13:01)
[2022-05-23] MEDS: OLANZapine 5 MG TABLET PO (16:50)
[2022-05-23 18:00] VITALS: BP 107/68; PULSE 66; RESP 18; TEMP 36.6; O2SAT 98
[2022-05-23] MEDS: OLANZapine 10 MG TABLET PO (20:03)
[2022-05-23] MEDS: Donepezil HCl 10 MG TABLET PO (20:04)
[2022-05-24] MEDS: Levothyroxine Sodium 75 MCG TABLET PO (05:23)
[2022-05-24 06:00] VITALS: BP 108/66; PULSE 68; RESP 18; O2SAT 98
[2022-05-24] MEDS: Sulfamethox/Trimeth 800/160 TABLET 1 TAB PO ×2 (10:22→20:06)
[2022-05-24] MEDS: Memantine HCl 10 MG TABLET PO ×2 (10:22→20:06)
[2022-05-24] MEDS: lisinopriL 10 MG TABLET PO (10:22)
[2022-05-24] MEDS: Atorvastatin Calcium 20 MG TABLET PO (10:22)
[2022-05-24] MEDS: OLANZapine 2.5 MG TABLET PO (10:22)
[2022-05-24] MEDS: OLANZapine 5 MG TABLET PO (10:23)
[2022-05-24] MEDS: Sertraline HCL 25 MG TABLET 75 MG PO (10:23)
[2022-05-24] MEDS: traZODone HCL 50 MG TABLET PO ×4 (10:24→21:29)
--- NOTE | 2022-05-24 13:17 | HO.PSYCHPN ---
Subjective Subjective Date of Service: 05/24/22 Reason For Visit: Agitation in Dementia Subjective Notes: Conditional Voluntary Interim History: The nursing staff reported the patient needed Zyprexa Zydis in the evening since she was very restless. The social service director reported that her wants to take her back home probably she will be discharged next week early. On interview the patient is pleasantly confused no agitation Mental Status Exam Mental Status Exam Patient Appearance: Well Grooomed Patient Orientation: Person and Situation Level of Consciousness: Awake and Appropriate Patient Behavior: Guarded and Passive Mood Description: Withdrawn Affect Description: Constricted Patient Cognition Impaired: Yes Ability to Follow Directions: Fair Speech Pattern: Clear Hallucinations: None Delusions: Not Present Thought Process: Distracted, Evasive and Slowed Thinking Thought Content: positive for [place] and positive for Poverty of Content Judgement: Poor Diagnostics Vital Signs (24Hr): Vital Signs - 24 hr 05/23/22 18:00 Temperature 97.9 F Pulse Rate 66 Respiratory Rate 18 Blood Pressure 107/68 Pulse Oximetry 98 Oxygen Delivery Method Room Air BMI result Body Mass Index 22.5 Labs 05/16/22 08:04 05/16/22 08:04 Imaging Radiology Impressions: [facility] Impressions Head CT 05/14/22 13:40 IMPRESSION: No acute intracranial hemorrhage or territorial infarction. Moderate generalized parenchymal volume loss and mild chronic white matter microangiopathy. Medications Medications Current Medications Acetaminophen (Acetaminophen 325 Mg Tablet) 650 mg PO Q6H PRN PRN Reason: Headache/Pain Mild Scale (1-3) Last Admin: 05/21/22 19:41 Dose: 650 mg Al Hydroxide/Mg Hydroxide (Magnesium Hydrox/Alum Hydrox 30 Ml Oral.Susp) 30 ml PO Q6H PRN PRN Reason: Heartburn/Nausea Atorvastatin Calcium (Atorvastatin Calcium 20 Mg Tablet) 20 mg PO DAILY [facility] Last Admin: 05/24/22 10:22 Dose: 20 mg Donepezil HCl (Donepezil Hcl 10 Mg Tablet) 10 mg PO BEDTIME [facility] Last Admin: 05/23/22 20:04 Dose: 10 mg Levothyroxine Sodium (Levothyroxine Sodium 75 Mcg Tablet) 75 mcg PO DAILY@0600 [facility] Last Admin: 05/24/22 05:23 Dose: 75 mcg Lisinopril (Lisinopril 10 Mg Tablet) 10 mg PO DAILY [facility]; Protocol Last Admin: 05/24/22 10:22 Dose: 10 mg Magnesium Hydroxide (Milk Of Magnesia 30 Ml Oral.Susp) 30 ml PO DAILY PRN PRN Reason: Constipation Last Admin: 05/15/22 09:44 Dose: 30 ml Memantine (Memantine Hcl 10 Mg Tablet) 10 mg PO BID [facility] Last Admin: 05/24/22 10:22 Dose: 10 mg Olanzapine (Olanzapine Odt 10 Mg Tab.Rapdis) 10 mg TRANSLINGU BID PRN PRN Reason: Psychosis Last Admin: 05/23/22 13:01 Dose: 10 mg Olanzapine (Olanzapine 2.5 Mg Tablet) 2.5 mg PO DAILY [facility] Last Admin: 05/24/22 10:22 Dose: 2.5 mg Olanzapine (Olanzapine 5 Mg Tablet) 5 mg PO DAILY [facility] Last Admin: 05/24/22 10:23 Dose: 5 mg Olanzapine (Olanzapine 10 Mg Tablet) 10 mg PO BEDTIME [facility] Last Admin: 05/23/22 20:03 Dose: 10 mg Sertraline HCl (Sertraline Hcl 25 Mg Tablet) 75 mg PO DAILY [facility] Last Admin: 05/24/22 10:23 Dose: 75 mg Trazodone HCl (Trazodone Hcl 50 Mg Tablet) 50 mg PO BEDTIME PRN PRN Reason: Insomnia Last Admin: 05/21/22 19:40 Dose: 50 mg Trazodone HCl (Trazodone Hcl 50 Mg Tablet) 50 mg PO TID@0900,1400,2100 [facility] Last Admin: 05/24/22 10:24 Dose: 50 mg Trazodone HCl (Trazodone Hcl 50 Mg Tablet) 50 mg PO TID PRN PRN Reason: Anxiety Last Admin: 05/23/22 03:26 Dose: 50 mg Trimethoprim/Sulfamethoxazole (Sulfamethox/Trimeth 800/160 Tablet) 1 tab PO Q12H [facility] Last Admin: 05/24/22 10:22 Dose: 1 tab Allergies Allergies Allergy/AdvReac Type Severity Reaction Status Date / Time No Known Allergies Allergy Unverified 01/21/20 16:10 Assessment & Plan Assessment & Plan (1) Dementia: Qualifiers: Dementia behavioral or psychological symptom: with agitation Dementia severity: moderate Dementia type: unspecified type Qualified Code(s): F03.B11 - Unspecified dementia, moderate, with agitation Status: Acute Code(s): F03.90 - Unspecified dementia, unspecified severity, without behavioral disturbance, psychotic disturbance, mood disturbance, and anxiety (2) Psychosis: Status: Acute Code(s): F29 - Unspecified psychosis not due to a substance or known physiological condition (3) Delirium: Status: Acute Code(s): R41.0 - Disorientation, unspecified Plan The patient is an elderly female with a history of dementia for the last 4 years that have been worsening. The patient had been in the emergency room 3 times in the last weeks we UTI and worsening of delirium with psychotic symptoms. Recently the patient had the fixed delusion that her had been cheating on her and she had been violent. According to her that is not her baseline. 05/12 continue current treatment plan 05/13 continue current treatment plan 05/19 tried to smoother sleeping roommate with pillow; stopped by 1:1. Pt acknowledges this and says just trying to keep peer quiet Discussed case w/ nursing who reports patient has sundowning which seems to start around 3pm; will move trazodone dose to 2pmg -will also consider changing Zyprexa AM dose to BID with 2.5mg at 9:00 and 2.5mg at 2pm 05/20 little better with trazodone at 14:00; will defer to primary team whether to split up Zyprexa as well. Plan 1. REMAIN ON 1:1 2. Continue blood work and urinalysis to rule out acute UTI. 3. Start Risperdal 0.5 mg p.o. b.i.d. to target psychosis. Risperdal was discontinue on May 11. 4. OT referral for Callaway and other cognitive test. Callaway scored 8/30 5. Radiology studies. 6. Start Zyprexa 7.5 at bedtime and p.r.n. Zydis 10 mg p.o. b.i.d.. On May 22 we increased Zyprexa up to 10 mg at bedtime. 7. Ativan 1 mg in the afternoon before sundowning was discontinued on May 17 due to disinhibition.. 8. CHANGE TO Trazodone 25 mg p.o. t.i.d. with 2nd dose at 2pm (instead of 3pm) to better address sundowning. Trazodone was increased up to 50 mg p.o. t.i.d. to target anxiety on May 22. Start Zyprexa 2.5 mg in the morning on May 20. Trazodone 50 mg p.o. b.i.d. p.r.n. anxiety. We will discontinue Atarax because it could disinhibited and confused her due to the anticholinergic effect. Reason for contiued inpatient stay Substantial Risk for: inability to function, rapid decompensation and med/psych decompensation Time Spent With Patient Time: Total time managing care of this patient today __20__ minutes.
[2022-05-24] MEDS: Donepezil HCl 10 MG TABLET PO (20:06)
[2022-05-24] MEDS: OLANZapine 10 MG TABLET PO (20:06)
[2022-05-24] MEDS: OLANZapine ODT 10 MG TAB.RAPDIS TRANSLINGU (20:30)
[2022-05-24 20:48] VITALS: BP 121/86; PULSE 76; TEMP 36.4
[2022-05-25] MEDS: Levothyroxine Sodium 75 MCG TABLET PO (06:26)
[2022-05-25 07:30] VITALS: BP 114/60; PULSE 64; RESP 14; TEMP 36.5; O2SAT 100
[2022-05-25] MEDS: Sertraline HCL 25 MG TABLET 75 MG PO (08:30)
[2022-05-25] MEDS: OLANZapine 2.5 MG TABLET PO (08:30)
[2022-05-25] MEDS: lisinopriL 10 MG TABLET PO (08:30)
[2022-05-25] MEDS: Memantine HCl 10 MG TABLET PO ×2 (08:30→19:46)
[2022-05-25] MEDS: Sulfamethox/Trimeth 800/160 TABLET 1 TAB PO ×2 (08:30→19:50)
[2022-05-25] MEDS: Atorvastatin Calcium 20 MG TABLET PO (08:30)
[2022-05-25] MEDS: OLANZapine 5 MG TABLET PO (08:30)
[2022-05-25] MEDS: traZODone HCL 50 MG TABLET PO ×3 (10:13→19:47)
--- NOTE | 2022-05-25 12:47 | HO.PSYCHPN ---
Subjective Subjective Date of Service: 05/25/22 Reason For Visit: Agitation in Dementia Subjective Notes: Conditional Voluntary Interim History: The nursing staff reported the patient has been restless but much better since trazodone was increased up to 50 mg p.o. t.i.d. with no evidence of over-sedation. The staff has also has noticed that after 16:00 her sundowning is worse. On interview the patient was pleasant, confused but easily redirectable. Mental Status Exam Mental Status Exam Patient Appearance: Well Grooomed Patient Orientation: Person and Situation Level of Consciousness: Awake and Appropriate Patient Behavior: Guarded and Passive Mood Description: Withdrawn Affect Description: Constricted Patient Cognition Impaired: Yes Speech Pattern: Appropriate Hallucinations: None Delusions: Paranoid Ideation and Ideas of Reference Thought Process: Distracted Thought Content: positive for [place] and positive for Loose Associations Judgement: Poor Diagnostics Vital Signs (24Hr): Vital Signs - 24 hr 05/24/22 20:48 05/25/22 07:30 Temperature 97.6 F 97.7 F Pulse Rate 76 64 Respiratory Rate 14 Blood Pressure 121/86 114/60 Pulse Oximetry 100 Oxygen Delivery Method Room Air BMI result Body Mass Index 22.5 Labs 05/16/22 08:04 05/16/22 08:04 Imaging Radiology Impressions: ITS Impressions Head CT 05/14/22 13:40 IMPRESSION: No acute intracranial hemorrhage or territorial infarction. Moderate generalized parenchymal volume loss and mild chronic white matter microangiopathy. Medications Medications Current Medications Acetaminophen (Acetaminophen 325 Mg Tablet) 650 mg PO Q6H PRN PRN Reason: Headache/Pain Mild Scale (1-3) Last Admin: 05/21/22 19:41 Dose: 650 mg Al Hydroxide/Mg Hydroxide (Magnesium Hydrox/Alum Hydrox 30 Ml Oral.Susp) 30 ml PO Q6H PRN PRN Reason: Heartburn/Nausea Atorvastatin Calcium (Atorvastatin Calcium 20 Mg Tablet) 20 mg PO DAILY [facility] Last Admin: 05/25/22 08:30 Dose: 20 mg Donepezil HCl (Donepezil Hcl 10 Mg Tablet) 10 mg PO BEDTIME [facility] Last Admin: 05/24/22 20:06 Dose: 10 mg Levothyroxine Sodium (Levothyroxine Sodium 75 Mcg Tablet) 75 mcg PO DAILY@0600 [facility] Last Admin: 05/25/22 06:26 Dose: 75 mcg Lisinopril (Lisinopril 10 Mg Tablet) 10 mg PO DAILY [facility]; Protocol Last Admin: 05/25/22 08:30 Dose: 10 mg Magnesium Hydroxide (Milk Of Magnesia 30 Ml Oral.Susp) 30 ml PO DAILY PRN PRN Reason: Constipation Last Admin: 05/15/22 09:44 Dose: 30 ml Memantine (Memantine Hcl 10 Mg Tablet) 10 mg PO BID [facility] Last Admin: 05/25/22 08:30 Dose: 10 mg Olanzapine (Olanzapine Odt 10 Mg Tab.Rapdis) 10 mg TRANSLINGU BID PRN PRN Reason: Psychosis Last Admin: 05/24/22 20:30 Dose: 10 mg Olanzapine (Olanzapine 2.5 Mg Tablet) 2.5 mg PO DAILY [facility] Last Admin: 05/25/22 08:30 Dose: 2.5 mg Olanzapine (Olanzapine 5 Mg Tablet) 5 mg PO DAILY [facility] Last Admin: 05/25/22 08:30 Dose: 5 mg Olanzapine (Olanzapine 10 Mg Tablet) 10 mg PO BEDTIME [facility] Last Admin: 05/24/22 20:06 Dose: 10 mg Sertraline HCl (Sertraline Hcl 25 Mg Tablet) 75 mg PO DAILY [facility] Last Admin: 05/25/22 08:30 Dose: 75 mg Trazodone HCl (Trazodone Hcl 50 Mg Tablet) 50 mg PO BEDTIME PRN PRN Reason: Insomnia Last Admin: 05/24/22 20:30 Dose: 50 mg Trazodone HCl (Trazodone Hcl 50 Mg Tablet) 50 mg PO TID@0900,1400,2100 [facility] Last Admin: 05/25/22 10:13 Dose: 50 mg Trazodone HCl (Trazodone Hcl 50 Mg Tablet) 50 mg PO TID PRN PRN Reason: Anxiety Last Admin: 05/24/22 21:29 Dose: 50 mg Trimethoprim/Sulfamethoxazole (Sulfamethox/Trimeth 800/160 Tablet) 1 tab PO Q12H [facility] Last Admin: 05/25/22 08:30 Dose: 1 tab Allergies Allergies Allergy/AdvReac Type Severity Reaction Status Date / Time No Known Allergies Allergy Unverified 01/21/20 16:10 Assessment & Plan Assessment & Plan (1) Dementia: Qualifiers: Dementia behavioral or psychological symptom: with agitation Dementia severity: moderate Dementia type: unspecified type Qualified Code(s): F03.B11 - Unspecified dementia, moderate, with agitation Status: Acute Code(s): F03.90 - Unspecified dementia, unspecified severity, without behavioral disturbance, psychotic disturbance, mood disturbance, and anxiety (2) Psychosis: Status: Acute Code(s): F29 - Unspecified psychosis not due to a substance or known physiological condition (3) Delirium: Status: Acute Code(s): R41.0 - Disorientation, unspecified Plan The patient is an elderly female with a history of dementia for the last 4 years that have been worsening. The patient had been in the emergency room 3 times in the last weeks we UTI and worsening of delirium with psychotic symptoms. Recently the patient had the fixed delusion that her had been cheating on her and she had been violent. According to her that is not her baseline. 05/12 continue current treatment plan 05/13 continue current treatment plan 05/19 tried to smoother sleeping roommate with pillow; stopped by 1:1. Pt acknowledges this and says just trying to keep peer quiet Discussed case w/ nursing who reports patient has sundowning which seems to start around 3pm; will move trazodone dose to 2pmg -will also consider changing Zyprexa AM dose to BID with 2.5mg at 9:00 and 2.5mg at 2pm 05/20 little better with trazodone at 14:00; will defer to primary team whether to split up Zyprexa as well. Plan 1. REMAIN ON 1:1 2. Continue blood work and urinalysis to rule out acute UTI. 3. Start Risperdal 0.5 mg p.o. b.i.d. to target psychosis. Risperdal was discontinue on May 11. 4. OT referral for [place] and other cognitive test. [place] scored 01/02 5. Radiology studies. 6. Start Zyprexa 7.5 at bedtime and p.r.n. Zydis 10 mg p.o. b.i.d.. On May 22 we increased Zyprexa up to 10 mg at bedtime. 7. Ativan 1 mg in the afternoon before sundowning was discontinued on May 17 due to disinhibition.. 8. CHANGE TO Trazodone 25 mg p.o. t.i.d. with 2nd dose at 2pm (instead of 3pm) to better address sundowning. Trazodone was increased up to 50 mg p.o. t.i.d. to target anxiety on May 22. Start Zyprexa 2.5 mg in the morning on May 20. Trazodone 50 mg p.o. b.i.d. p.r.n. anxiety. We will discontinue Atarax because it could disinhibited and confused her due to the anticholinergic effect. Reason for contiued inpatient stay Substantial Risk for: inability to function, rapid decompensation and med/psych decompensation Time Spent With Patient Time: Total time managing care of this patient today __20__ minutes.
[2022-05-25] MEDS: OLANZapine ODT 10 MG TAB.RAPDIS TRANSLINGU (14:34)
[2022-05-25 18:00] VITALS: BP 102/55; PULSE 72; RESP 16; TEMP 36.2; O2SAT 98
[2022-05-25] MEDS: OLANZapine 10 MG TABLET PO (19:45)
[2022-05-25] MEDS: Donepezil HCl 10 MG TABLET PO (19:45)
[2022-05-26] MEDS: Levothyroxine Sodium 75 MCG TABLET PO (05:54)
[2022-05-26 07:30] VITALS: BP 112/61; PULSE 63; RESP 15; TEMP 36.7; O2SAT 95
[2022-05-26] MEDS: Sertraline HCL 25 MG TABLET 75 MG PO (09:21)
[2022-05-26] MEDS: Atorvastatin Calcium 20 MG TABLET PO (09:22)
[2022-05-26] MEDS: OLANZapine 5 MG TABLET PO (09:22)
[2022-05-26] MEDS: Memantine HCl 10 MG TABLET PO ×2 (09:22→19:49)
[2022-05-26] MEDS: Sulfamethox/Trimeth 800/160 TABLET 1 TAB PO ×2 (09:22→19:48)
[2022-05-26] MEDS: OLANZapine 2.5 MG TABLET PO (09:22)
[2022-05-26] MEDS: lisinopriL 10 MG TABLET PO (09:22)
[2022-05-26] MEDS: traZODone HCL 50 MG TABLET PO ×2 (09:24→14:40)
[2022-05-26] MEDS: OLANZapine 10 MG TABLET PO (19:48)
[2022-05-26] MEDS: Donepezil HCl 10 MG TABLET PO (19:49)
[2022-05-26 20:00] VITALS: BP 96/56; PULSE 72; TEMP 36.1
--- NOTE | 2022-05-26 20:16 | HO.PSYCHPN ---
Subjective Subjective Date of Service: 05/26/22 Reason For Visit: Agitation in Dementia Interim History: Review of pt's care with nursing. She is on one to one due to intrusive sx. Team report she is not easily redirectable. Difficulty following directives for support, unsteady on her feet at times. She sits at the table with peers and her one to one, appears lost in her thoughts, minimially attentive to surrounding environment with the appearance of being distraught yet calm. Medication Compliance: Yes Side effects from medications: No Attending Groups: No Review of Systems Acute medical concerns: No Medical Review of Systems: unchanged Mental Status Exam Mental Status Exam Patient Appearance: Fatigued Patient Orientation: Person Level of Consciousness: Awake and Disoriented Patient Behavior: Dependent, Passive, Anxious, Fearful, Confused and Poor Eye Contact Mood Description: Blunted Affect Description: Blunted Patient Cognition Impaired: Yes Ability to Follow Directions: Poor Speech Pattern: No Speech Memory Description: Remote Impaired and Immediate Impaired Hallucinations: None (??) Delusions: Not Present (??) Thought Process: Disoriented, Distracted and Confusion Thought Content: positive for Disoriented, positive for Poverty of Content and positive for Slowed Thinking Depressive Symptoms: Increased Fatigue, Loss of Energy and Difficulty Concentrating Judgement: Poor Diagnostics Vital Signs (24Hr): Vital Signs - 24 hr 05/26/22 07:30 Temperature 98.1 F Pulse Rate 63 Respiratory Rate 15 Blood Pressure 112/61 Pulse Oximetry 95 Oxygen Delivery Method Room Air BMI result Body Mass Index 22.5 Labs 05/16/22 08:04 05/16/22 08:04 Imaging Radiology Impressions: ITS Impressions Head CT 05/14/22 13:40 IMPRESSION: No acute intracranial hemorrhage or territorial infarction. Moderate generalized parenchymal volume loss and mild chronic white matter microangiopathy. Medications Medications Current Medications Acetaminophen (Acetaminophen 325 Mg Tablet) 650 mg PO Q6H PRN PRN Reason: Headache/Pain Mild Scale (1-3) Last Admin: 05/21/22 19:41 Dose: 650 mg Al Hydroxide/Mg Hydroxide (Magnesium Hydrox/Alum Hydrox 30 Ml Oral.Susp) 30 ml PO Q6H PRN PRN Reason: Heartburn/Nausea Atorvastatin Calcium (Atorvastatin Calcium 20 Mg Tablet) 20 mg PO DAILY [facility] Last Admin: 05/26/22 09:22 Dose: 20 mg Donepezil HCl (Donepezil Hcl 10 Mg Tablet) 10 mg PO BEDTIME [facility] Last Admin: 05/26/22 19:49 Dose: 10 mg Levothyroxine Sodium (Levothyroxine Sodium 75 Mcg Tablet) 75 mcg PO DAILY@0600 [facility] Last Admin: 05/26/22 05:54 Dose: 75 mcg Lisinopril (Lisinopril 10 Mg Tablet) 10 mg PO DAILY [facility]; Protocol Last Admin: 05/26/22 09:22 Dose: 10 mg Magnesium Hydroxide (Milk Of Magnesia 30 Ml Oral.Susp) 30 ml PO DAILY PRN PRN Reason: Constipation Last Admin: 05/15/22 09:44 Dose: 30 ml Memantine (Memantine Hcl 10 Mg Tablet) 10 mg PO BID [facility] Last Admin: 05/26/22 19:49 Dose: 10 mg Olanzapine (Olanzapine Odt 10 Mg Tab.Rapdis) 10 mg TRANSLINGU BID PRN PRN Reason: Psychosis Last Admin: 05/25/22 14:34 Dose: 10 mg Olanzapine (Olanzapine 2.5 Mg Tablet) 2.5 mg PO DAILY [facility] Last Admin: 05/26/22 09:22 Dose: 2.5 mg Olanzapine (Olanzapine 5 Mg Tablet) 5 mg PO DAILY [facility] Last Admin: 05/26/22 09:22 Dose: 5 mg Olanzapine (Olanzapine 10 Mg Tablet) 10 mg PO BEDTIME [facility] Last Admin: 05/26/22 19:48 Dose: 10 mg Sertraline HCl (Sertraline Hcl 25 Mg Tablet) 75 mg PO DAILY [facility] Last Admin: 05/26/22 09:21 Dose: 75 mg Trazodone HCl (Trazodone Hcl 50 Mg Tablet) 50 mg PO BEDTIME PRN PRN Reason: Insomnia Last Admin: 05/24/22 20:30 Dose: 50 mg Trazodone HCl (Trazodone Hcl 50 Mg Tablet) 50 mg PO TID@0900,1400,2100 [facility] Last Admin: 05/26/22 14:40 Dose: 50 mg Trazodone HCl (Trazodone Hcl 50 Mg Tablet) 50 mg PO TID PRN PRN Reason: Anxiety Last Admin: 05/24/22 21:29 Dose: 50 mg Trimethoprim/Sulfamethoxazole (Sulfamethox/Trimeth 800/160 Tablet) 1 tab PO Q12H [facility] Last Admin: 05/26/22 19:48 Dose: 1 tab Allergies Allergies Allergy/AdvReac Type Severity Reaction Status Date / Time No Known Allergies Allergy Unverified 01/21/20 16:10 Assessment & Plan Assessment & Plan (1) Dementia: Qualifiers: Dementia behavioral or psychological symptom: with agitation Dementia severity: moderate Dementia type: unspecified type Qualified Code(s): F03.B11 - Unspecified dementia, moderate, with agitation Status: Acute Code(s): F03.90 - Unspecified dementia, unspecified severity, without behavioral disturbance, psychotic disturbance, mood disturbance, and anxiety (2) Psychosis: Status: Acute Code(s): F29 - Unspecified psychosis not due to a substance or known physiological condition (3) Delirium: Status: Acute Code(s): R41.0 - Disorientation, unspecified Plan The patient is an elderly female with a history of dementia for the last 4 years that have been worsening. The patient had been in the emergency room 3 times in the last weeks we UTI and worsening of delirium with psychotic symptoms. Recently the patient had the fixed delusion that her had been cheating on her and she had been violent. According to her that is not her baseline. 05/12 continue current treatment plan 05/13 continue current treatment plan 05/19 tried to smoother sleeping roommate with pillow; stopped by 1:1. Pt acknowledges this and says just trying to keep peer quiet Discussed case w/ nursing who reports patient has sundowning which seems to start around 3pm; will move trazodone dose to 2pmg -will also consider changing Zyprexa AM dose to BID with 2.5mg at 9:00 and 2.5mg at 2pm 05/20 little better with trazodone at 14:00; will defer to primary team whether to split up Zyprexa as well. 05/26/22- continue current treatment plan Plan 1. REMAIN ON 1:1 2. Continue blood work and urinalysis to rule out acute UTI. 3. Start Risperdal 0.5 mg p.o. b.i.d. to target psychosis. Risperdal was discontinue on May 11. 4. OT referral for [place] and other cognitive test. [place] scored 8/30 5. Radiology studies. 6. Start Zyprexa 7.5 at bedtime and p.r.n. Zydis 10 mg p.o. b.i.d.. On May 22 we increased Zyprexa up to 10 mg at bedtime. 7. Ativan 1 mg in the afternoon before ing was discontinued on May 17 due to disinhibition.. 8. CHANGE TO Trazodone 25 mg p.o. t.i.d. with 2nd dose at 2pm (instead of 3pm) to better address sundowning. Trazodone was increased up to 50 mg p.o. t.i.d. to target anxiety on May 22. 9. Start Zyprexa 2.5 mg in the morning on May 20. 10. Trazodone 50 mg p.o. b.i.d. p.r.n. anxiety. We will discontinue Atarax because it could disinhibited and confused her due to the anticholinergic effect. Informed Consent: does not understand Reason for contiued inpatient stay Substantial Risk for: rapid decompensation Time Spent With Patient Time: Total time managing care of this patient today ____ minutes.
[2022-05-27] MEDS: Levothyroxine Sodium 75 MCG TABLET PO (05:07)
[2022-05-27 07:30] VITALS: BP 97/67; PULSE 65; RESP 16; TEMP 36.1; O2SAT 99
[2022-05-27] MEDS: Atorvastatin Calcium 20 MG TABLET PO (08:38)
[2022-05-27] MEDS: OLANZapine 2.5 MG TABLET PO (08:38)
[2022-05-27] MEDS: OLANZapine 5 MG TABLET PO (08:38)
[2022-05-27] MEDS: Sertraline HCL 25 MG TABLET 75 MG PO (08:38)
[2022-05-27] MEDS: Memantine HCl 10 MG TABLET PO ×2 (08:38→18:08)
[2022-05-27] MEDS: Sulfamethox/Trimeth 800/160 TABLET 1 TAB PO ×2 (08:39→18:08)
[2022-05-27] MEDS: traZODone HCL 50 MG TABLET PO ×3 (09:49→18:08)
[2022-05-27] MEDS: lisinopriL 10 MG TABLET PO (10:13)
--- NOTE | 2022-05-27 11:59 | HO.PSYCHPN ---
Subjective Subjective Date of Service: 05/27/22 Reason For Visit: Agitation in Dementia Interim History: Care reviewed with team who report pt was able to sleep for eight hours, remains on one to one with no changes in behavioral presentation. No new medical or behavioral concerns today per team. Medication Compliance: Yes Attending Groups: No Review of Systems Acute medical concerns: No Medical Review of Systems: unchanged Mental Status Exam Mental Status Exam Patient Appearance: Fatigued Patient Orientation: Person Level of Consciousness: Awake and Disoriented Patient Behavior: Dependent, Passive, Anxious, Fearful, Confused and Poor Eye Contact Mood Description: Blunted Affect Description: Blunted Patient Cognition Impaired: Yes Ability to Follow Directions: Poor Speech Pattern: No Speech Memory Description: Remote Impaired and Immediate Impaired Hallucinations: None (??) Delusions: Not Present (??) Thought Process: Disoriented, Distracted and Confusion Thought Content: positive for Disoriented, positive for Poverty of Content and positive for Slowed Thinking Depressive Symptoms: Increased Fatigue, Loss of Energy and Difficulty Concentrating Judgement: Poor Diagnostics Vital Signs (24Hr): Vital Signs - 24 hr 05/26/22 20:00 05/27/22 07:30 Temperature 97 F 96.9 F Pulse Rate 72 65 Respiratory Rate 16 Blood Pressure 96/56 L 97/67 Pulse Oximetry 99 Oxygen Delivery Method Room Air BMI result Body Mass Index 22.5 Labs 05/16/22 08:04 05/16/22 08:04 Imaging Radiology Impressions: [facility] Impressions Head CT 05/14/22 13:40 IMPRESSION: No acute intracranial hemorrhage or territorial infarction. Moderate generalized parenchymal volume loss and mild chronic white matter microangiopathy. Medications Medications Current Medications Acetaminophen (Acetaminophen 325 Mg Tablet) 650 mg PO Q6H PRN PRN Reason: Headache/Pain Mild Scale (1-3) Last Admin: 05/21/22 19:41 Dose: 650 mg Al Hydroxide/Mg Hydroxide (Magnesium Hydrox/Alum Hydrox 30 Ml Oral.Susp) 30 ml PO Q6H PRN PRN Reason: Heartburn/Nausea Atorvastatin Calcium (Atorvastatin Calcium 20 Mg Tablet) 20 mg PO DAILY [facility] Last Admin: 05/27/22 08:38 Dose: 20 mg Donepezil HCl (Donepezil Hcl 10 Mg Tablet) 10 mg PO BEDTIME [facility] Last Admin: 05/26/22 19:49 Dose: 10 mg Levothyroxine Sodium (Levothyroxine Sodium 75 Mcg Tablet) 75 mcg PO DAILY@0600 [facility] Last Admin: 05/27/22 05:07 Dose: 75 mcg Lisinopril (Lisinopril 10 Mg Tablet) 10 mg PO DAILY [facility]; Protocol Last Admin: 05/27/22 10:13 Dose: 10 mg Magnesium Hydroxide (Milk Of Magnesia 30 Ml Oral.Susp) 30 ml PO DAILY PRN PRN Reason: Constipation Last Admin: 05/15/22 09:44 Dose: 30 ml Memantine (Memantine Hcl 10 Mg Tablet) 10 mg PO BID [facility] Last Admin: 05/27/22 08:38 Dose: 10 mg Olanzapine (Olanzapine Odt 10 Mg Tab.Rapdis) 10 mg TRANSLINGU BID PRN PRN Reason: Psychosis Last Admin: 05/25/22 14:34 Dose: 10 mg Olanzapine (Olanzapine 2.5 Mg Tablet) 2.5 mg PO DAILY [facility] Last Admin: 05/27/22 08:38 Dose: 2.5 mg Olanzapine (Olanzapine 5 Mg Tablet) 5 mg PO DAILY [facility] Last Admin: 05/27/22 08:38 Dose: 5 mg Olanzapine (Olanzapine 10 Mg Tablet) 10 mg PO BEDTIME [facility] Last Admin: 05/26/22 19:48 Dose: 10 mg Sertraline HCl (Sertraline Hcl 25 Mg Tablet) 75 mg PO DAILY [facility] Last Admin: 05/27/22 08:38 Dose: 75 mg Trazodone HCl (Trazodone Hcl 50 Mg Tablet) 50 mg PO BEDTIME PRN PRN Reason: Insomnia Last Admin: 05/24/22 20:30 Dose: 50 mg Trazodone HCl (Trazodone Hcl 50 Mg Tablet) 50 mg PO TID@0900,1400,2100 [facility] Last Admin: 05/27/22 09:49 Dose: 50 mg Trazodone HCl (Trazodone Hcl 50 Mg Tablet) 50 mg PO TID PRN PRN Reason: Anxiety Last Admin: 05/24/22 21:29 Dose: 50 mg Trimethoprim/Sulfamethoxazole (Sulfamethox/Trimeth 800/160 Tablet) 1 tab PO Q12H [facility] Last Admin: 05/27/22 08:39 Dose: 1 tab Allergies Allergies Allergy/AdvReac Type Severity Reaction Status Date / Time No Known Allergies Allergy Unverified 01/21/20 16:10 Assessment & Plan Assessment & Plan (1) Dementia: Qualifiers: Dementia behavioral or psychological symptom: with agitation Dementia severity: moderate Dementia type: unspecified type Qualified Code(s): F03.B11 - Unspecified dementia, moderate, with agitation Status: Acute Code(s): F03.90 - Unspecified dementia, unspecified severity, without behavioral disturbance, psychotic disturbance, mood disturbance, and anxiety (2) Psychosis: Status: Acute Code(s): F29 - Unspecified psychosis not due to a substance or known physiological condition (3) Delirium: Status: Acute Code(s): R41.0 - Disorientation, unspecified Plan The patient is an elderly female with a history of dementia for the last 4 years that have been worsening. The patient had been in the emergency room 3 times in the last weeks we UTI and worsening of delirium with psychotic symptoms. Recently the patient had the fixed delusion that her had been cheating on her and she had been violent. According to her that is not her baseline. 05/12 continue current treatment plan 05/13 continue current treatment plan 05/19 tried to smoother sleeping roommate with pillow; stopped by 1:1. Pt acknowledges this and says just trying to keep peer quiet Discussed case w/ nursing who reports patient has sundowning which seems to start around 3pm; will move trazodone dose to 2pmg -will also consider changing Zyprexa AM dose to BID with 2.5mg at 9:00 and 2.5mg at 2pm 05/20 little better with trazodone at 14:00; will defer to primary team whether to split up Zyprexa as well. 05/27/22: Continue current plan of care Plan 1. REMAIN ON 1:1 2. Continue blood work and urinalysis to rule out acute UTI. 3. Start Risperdal 0.5 mg p.o. b.i.d. to target psychosis. Risperdal was discontinue on May 11. 4. OT referral for [place] and other cognitive test. [place] scored 01/02 5. Radiology studies. 6. Start Zyprexa 7.5 at bedtime and p.r.n. Zydis 10 mg p.o. b.i.d.. On May 22 we increased Zyprexa up to 10 mg at bedtime. 7. Ativan 1 mg in the afternoon before sundowning was discontinued on May 17 due to disinhibition.. 8. CHANGE TO Trazodone 25 mg p.o. t.i.d. with 2nd dose at 2pm (instead of 3pm) to better address . Trazodone was increased up to 50 mg p.o. t.i.d. to target anxiety on May 22. 9. Start Zyprexa 2.5 mg in the morning on May 20. 10. Trazodone 50 mg p.o. b.i.d. p.r.n. anxiety. We will discontinue Atarax because it could disinhibited and confused her due to the anticholinergic effect. Informed Consent: does not understand Reason for contiued inpatient stay Substantial Risk for: inability to function and rapid decompensation Time Spent With Patient Time: Total time managing care of this patient today ____ minutes.
[2022-05-27] MEDS: Donepezil HCl 10 MG TABLET PO (18:08)
[2022-05-27] MEDS: OLANZapine 10 MG TABLET PO (18:08)
[2022-05-28] MEDS: Levothyroxine Sodium 75 MCG TABLET PO (05:39)
[2022-05-28 06:00] VITALS: BP 93/54; PULSE 65; RESP 16; TEMP 36.4; O2SAT 97
[2022-05-28] MEDS: lisinopriL 10 MG TABLET PO (08:43)
[2022-05-28] MEDS: Sertraline HCL 25 MG TABLET 75 MG PO (08:43)
[2022-05-28] MEDS: Memantine HCl 10 MG TABLET PO ×2 (08:43→20:57)
[2022-05-28] MEDS: Sulfamethox/Trimeth 800/160 TABLET 1 TAB PO ×2 (08:43→20:57)
[2022-05-28] MEDS: OLANZapine 2.5 MG TABLET PO (08:44)
[2022-05-28] MEDS: Atorvastatin Calcium 20 MG TABLET PO (08:44)
[2022-05-28] MEDS: OLANZapine 5 MG TABLET PO (08:44)
[2022-05-28] MEDS: traZODone HCL 50 MG TABLET PO ×2 (10:49→15:01)
--- NOTE | 2022-05-28 13:39 | P.PNPSI_ITS ---
Subjective Subjective Date of Service: 05/28/22 Reason For Visit: Agitation in Dementia Subjective Notes: Conditional Voluntary (By healthcare proxy) Healthcare Proxy: Yes Interim History: The nursing staff reported that she had been on one-to-one since she has been wondering. She had been less intrusive and there is no evidence of over-s edation since trazodone was improved. She slept 5 hours last night. On interview the patient was confused but redirectable, very poor short-term memory. Mental Status Exam Mental Status Exam Patient Appearance: Appropriate Patient Orientation: Person and Situation Level of Consciousness: Awake and Appropriate Mood Description: Withdrawn Affect Description: Constricted Patient Cognition Impaired: Yes Ability to Follow Directions: Good Speech Pattern: Clear Hallucinations: None Delusions: Paranoid Ideation Thought Process: Distracted and Slowed Thinking Thought Content: positive for [place] and positive for Circumstantial Judgement: Poor Diagnostics Vital Signs (24Hr): Vital Signs - 24 hr 05/28/22 06:00 Temperature 97.6 F Pulse Rate 65 Respiratory Rate 16 Blood Pressure 93/54 L Pulse Oximetry 97 Oxygen Delivery Method Room Air BMI result Body Mass Index 22.5 Labs 05/16/22 08:04 05/16/22 08:04 Imaging Radiology Impressions: ITS Impressions Head CT 05/14/22 13:40 IMPRESSION: No acute intracranial hemorrhage or territorial infarction. Moderate generalized parenchymal volume loss and mild chronic white matter microangiopathy. Medications Medications Current Medications Acetaminophen (Acetaminophen 325 Mg Tablet) 650 mg PO Q6H PRN PRN Reason: Headache/Pain Mild Scale (1-3) Last Admin: 05/21/22 19:41 Dose: 650 mg Al Hydroxide/Mg Hydroxide (Magnesium Hydrox/Alum Hydrox 30 Ml Oral.Susp) 30 ml PO Q6H PRN PRN Reason: Heartburn/Nausea Atorvastatin Calcium (Atorvastatin Calcium 20 Mg Tablet) 20 mg PO DAILY [facility] Last Admin: 05/28/22 08:44 Dose: 20 mg Donepezil HCl (Donepezil Hcl 10 Mg Tablet) 10 mg PO BEDTIME [facility] Last Admin: 05/27/22 18:08 Dose: 10 mg Levothyroxine Sodium (Levothyroxine Sodium 75 Mcg Tablet) 75 mcg PO DAILY@0600 [facility] Last Admin: 05/28/22 05:39 Dose: 75 mcg Lisinopril (Lisinopril 10 Mg Tablet) 10 mg PO DAILY [facility]; Protocol Last Admin: 05/28/22 08:43 Dose: 10 mg Magnesium Hydroxide (Milk Of Magnesia 30 Ml Oral.Susp) 30 ml PO DAILY PRN PRN Reason: Constipation Last Admin: 05/15/22 09:44 Dose: 30 ml Memantine (Memantine Hcl 10 Mg Tablet) 10 mg PO BID [facility] Last Admin: 05/28/22 08:43 Dose: 10 mg Olanzapine (Olanzapine Odt 10 Mg Tab.Rapdis) 10 mg TRANSLINGU BID PRN PRN Reason: Psychosis Last Admin: 05/25/22 14:34 Dose: 10 mg Olanzapine (Olanzapine 2.5 Mg Tablet) 2.5 mg PO DAILY [facility] Last Admin: 05/28/22 08:44 Dose: 2.5 mg Olanzapine (Olanzapine 5 Mg Tablet) 5 mg PO DAILY [facility] Last Admin: 05/28/22 08:44 Dose: 5 mg Olanzapine (Olanzapine 10 Mg Tablet) 10 mg PO BEDTIME [facility] Last Admin: 05/27/22 18:08 Dose: 10 mg Sertraline HCl (Sertraline Hcl 25 Mg Tablet) 75 mg PO DAILY [facility] Last Admin: 05/28/22 08:43 Dose: 75 mg Trazodone HCl (Trazodone Hcl 50 Mg Tablet) 50 mg PO BEDTIME PRN PRN Reason: Insomnia Last Admin: 05/27/22 18:08 Dose: 50 mg Trazodone HCl (Trazodone Hcl 50 Mg Tablet) 50 mg PO TID@0900,1400,2100 [facility] Last Admin: 05/28/22 10:49 Dose: 50 mg Trazodone HCl (Trazodone Hcl 50 Mg Tablet) 50 mg PO TID PRN PRN Reason: Anxiety Last Admin: 05/24/22 21:29 Dose: 50 mg Trimethoprim/Sulfamethoxazole (Sulfamethox/Trimeth 800/160 Tablet) 1 tab PO Q 12H [facility] Last Admin: 05/28/22 08:43 Dose: 1 tab Allergies Allergies Allergy/AdvReac Type Severity Reaction Status Date / Time No Known Allergies Allergy Unverified 01/21/20 16:10 Assessment & Plan Assessment & Plan (1) Dementia: Qualifiers: Dementia behavioral or psychological symptom: with agitation Dementia severity: moderate Dementia type: unspecified type Qualified Code(s): F03.B11 - Unspecified dementia, moderate, with agitation Status: Acute Code(s): F03.90 - Unspecified dementia, unspecified severity, without behavioral disturbance, psychotic disturbance, mood disturbance, and anxiety (2) Psychosis: Status: Acute Code(s): F29 - Unspecified psychosis not due to a substance or known physiological condition (3) Delirium: Status: Acute Code(s): R41.0 - Disorientation, unspecified Plan The patient is an elderly female with a history of dementia for the last 4 years that have been worsening. The patient had been in the emergency room 3 times in the last weeks we UTI and worsening of delirium with psychotic symptoms. Recently the patient had the fixed delusion that her had been cheating on her and she had been violent. According to her that is not her baseline. 05/12 continue current treatment plan 05/13 continue current treatment plan 05/19 tried to smoother sleeping roommate with pillow; stopped by 1:1. Pt acknowledges this and says just trying to keep peer quiet Discussed case w/ nursing who reports patient has sundowning which seems to start around 3pm; will move trazodone dose to 2pmg -will also consider changing Zyprexa AM dose to BID with 2.5mg at 9:00 and 2.5mg at 2pm 05/20 little better with trazodone at 14:00; will defer to primary team whether to split up Zyprexa as well. 05/27/22: Continue current plan of care Plan 1. REMAIN ON 1:1 2. Continue blood work and urinalysis to rule out acute UTI. 3. Start Risperdal 0.5 mg p.o. b.i.d. to target psychosis. Risperdal was discontinue on May 11. 4. OT referral for [place] and other cognitive test. [place] scored 830 5. Radiology studies. 6. Start Zyprexa 7.5 at bedtime and p.r.n. Zydis 10 mg p.o. b.i.d.. On May 22 we increased Zyprexa up to 10 mg at bedtime. 7. Ativan 1 mg in the afternoon before sundowning was discontinued on May 17 due to disinhibition.. 8. CHANGE TO Trazodone 25 mg p.o. t.i.d. with 2nd dose at 2pm (instead of 3pm) to better address sundowning. Trazodone was increased up to 50 mg p.o. t.i.d. to target anxiety on May 22. Start Zyprexa 2.5 mg in the morning on May 20. Trazodone 50 mg p.o. b.i.d. p.r.n. anxiety. We will discontinue Atarax because it could disinhibited and confused her due to the anticholinergic effect. Reason for contiued inpatient stay Substantial Risk for: inability to function, rapid decompensation and med/psych decompensation Time Spent With Patient Time: Total time managing care of this patient today __20__ minutes.
[2022-05-28 18:00] VITALS: BP 84/58; PULSE 63; RESP 16; TEMP 36.3; O2SAT 97
[2022-05-28] MEDS: Donepezil HCl 10 MG TABLET PO (20:57)
[2022-05-29 01:15] VITALS: BP 102/73; PULSE 62; RESP 18
[2022-05-29] MEDS: Levothyroxine Sodium 75 MCG TABLET PO (06:23)
[2022-05-29 08:00] VITALS: BP 111/64; PULSE 74; RESP 14; TEMP 36.3; O2SAT 97
[2022-05-29] MEDS: Sulfamethox/Trimeth 800/160 TABLET 1 TAB PO ×2 (08:09→20:49)
[2022-05-29] MEDS: Sertraline HCL 25 MG TABLET 75 MG PO (08:09)
[2022-05-29] MEDS: Memantine HCl 10 MG TABLET PO ×2 (08:10→20:49)
[2022-05-29] MEDS: OLANZapine 5 MG TABLET PO (08:10)
[2022-05-29] MEDS: traZODone HCL 50 MG TABLET PO ×3 (08:10→20:49)
[2022-05-29] MEDS: lisinopriL 10 MG TABLET PO (08:10)
[2022-05-29] MEDS: Atorvastatin Calcium 20 MG TABLET PO (08:10)
[2022-05-29] MEDS: OLANZapine 2.5 MG TABLET PO (08:12)
--- NOTE | 2022-05-29 12:18 | HO.PSYCHPN ---
Subjective Subjective Date of Service: 05/29/22 Reason For Visit: Agitation in Dementia Subjective Notes: Conditional Voluntary (By healthcare proxy) Interim History: The nursing staff reported the patient had been compliant with treatment. Yesterday was her last dose of Bactrim. Her blood pressure medications will help last night because his blood pressure was very low. She was seen self dialogue in and manipulating objects that over note there. On interview the patient denies new symptoms she is pleasant and confused but redirectable. The staff has noticed that there is an improvement of her behavior less restless since trazodone was started. Mental Status Exam Mental Status Exam Patient Appearance: Well Grooomed Patient Orientation: Person and Situation Level of Consciousness: Awake and Appropriate Mood Description: Calm Affect Description: Constricted Patient Cognition Impaired: Yes Ability to Follow Directions: Good Speech Pattern: Clear Hallucinations: None Delusions: Paranoid Ideation Thought Process: Distracted and Slowed Thinking Thought Content: positive for [place], positive for Circumstantial, positive for Perseveration and positive for Poverty of Content Judgement: Poor Diagnostics Vital Signs (24Hr): Vital Signs - 24 hr 05/28/22 18:00 05/29/22 01:15 05/29/22 08:00 Temperature 97.4 F 97.3 F Pulse Rate 63 62 74 Respiratory Rate 16 18 14 Blood Pressure 84/58 L 102/73 111/64 Pulse Oximetry 97 97 Oxygen Delivery Method Room Air Room Air BMI result Body Mass Index 22.5 Labs 05/16/22 08:04 05/16/22 08:04 Imaging Radiology Impressions: ITS Impressions Head CT 05/14/22 13:40 IMPRESSION: No acute intracranial hemorrhage or territorial infarction. Moderate generalized parenchymal volume loss and mild chronic white matter microangiopathy. Medications Medications Current Medications Acetaminophen (Acetaminophen 325 Mg Tablet) 650 mg PO Q6H PRN PRN Reason: Headache/Pain Mild Scale (1-3) Last Admin: 05/21/22 19:41 Dose: 650 mg Al Hydroxide/Mg Hydroxide (Magnesium Hydrox/Alum Hydrox 30 Ml Oral.Susp) 30 ml PO Q6H PRN PRN Reason: Heartburn/Nausea Atorvastatin Calcium (Atorvastatin Calcium 20 Mg Tablet) 20 mg PO DAILY [facility] Last Admin: 05/29/22 08:10 Dose: 20 mg Donepezil HCl (Donepezil Hcl 10 Mg Tablet) 10 mg PO BEDTIME [facility] Last Admin: 05/28/22 20:57 Dose: 10 mg Levothyroxine Sodium (Levothyroxine Sodium 75 Mcg Tablet) 75 mcg PO DAILY@0600 [facility] Last Admin: 05/29/22 06:23 Dose: 75 mcg Lisinopril (Lisinopril 10 Mg Tablet) 10 mg PO DAILY [facility]; Protocol Last Admin: 05/29/22 08:10 Dose: 10 mg Magnesium Hydroxide (Milk Of Magnesia 30 Ml Oral.Susp) 30 ml PO DAILY PRN PRN Reason: Constipation Last Admin: 05/15/22 09:44 Dose: 30 ml Memantine (Memantine Hcl 10 Mg Tablet) 10 mg PO BID [facility] Last Admin: 05/29/22 08:10 Dose: 10 mg Olanzapine (Olanzapine Odt 10 Mg Tab.Rapdis) 10 mg TRANSLINGU BID PRN PRN Reason: Psychosis Last Admin: 05/25/22 14:34 Dose: 10 mg Olanzapine (Olanzapine 2.5 Mg Tablet) 2.5 mg PO DAILY [facility] Last Admin: 05/29/22 08:12 Dose: 2.5 mg Olanzapine (Olanzapine 5 Mg Tablet) 5 mg PO DAILY [facility] Last Admin: 05/29/22 08:10 Dose: 5 mg Olanzapine (Olanzapine 10 Mg Tablet) 10 mg PO BEDTIME [facility] Last Admin: 05/28/22 20:59 Dose: Not Given Sertraline HCl (Sertraline Hcl 25 Mg Tablet) 75 mg PO DAILY [facility] Last Admin: 05/29/22 08:09 Dose: 75 mg Trazodone HCl (Trazodone Hcl 50 Mg Tablet) 50 mg PO BEDTIME PRN PRN Reason: Insomnia Last Admin: 05/27/22 18:08 Dose: 50 mg Trazodone HCl (Trazodone Hcl 50 Mg Tablet) 50 mg PO TID@0900,1400,2100 [facility] Last Admin: 05/29/22 08:10 Dose: 50 mg Trazodone HCl (Trazodone Hcl 50 Mg Tablet) 50 mg PO TID PRN PRN Reason: Anxiety Last Admin: 05/24/22 21:29 Dose: 50 mg Trimethoprim/Sulfamethoxazole (Sulfamethox/Trimeth 800/160 Tablet) 1 tab PO Q12H [facility] Last Admin: 05/29/22 08:09 Dose: 1 tab Allergies Allergies Allergy/AdvReac Type Severity Reaction Status Date / Time No Known Allergies Allergy Unverified 01/21/20 16:10 Assessment & Plan Assessment & Plan (1) Dementia: Qualifiers: Dementia behavioral or psychological symptom: with agitation Dementia severity: moderate Dementia type: unspecified type Qualified Code(s): F03.B11 - Unspecified dementia, moderate, with agitation Status: Acute Code(s): F03.90 - Unspecified dementia, unspecified severity, without behavioral disturbance, psychotic disturbance, mood disturbance, and anxiety (2) Psychosis: Status: Acute Code(s): F29 - Unspecified psychosis not due to a substance or known physiological condition (3) Delirium: Status: Acute Code(s): R41.0 - Disorientation, unspecified Plan The patient is an elderly female with a history of dementia for the last 4 years that have been worsening. The patient had been in the emergency room 3 times in the last weeks we UTI and worsening of delirium with psychotic symptoms. Recently the patient had the fixed delusion that her had been cheating on her and she had been violent. According to her that is not her baseline. 05/12 continue current treatment plan 05/13 continue current treatment plan 05/19 tried to smoother sleeping roommate with pillow; stopped by 1:1. Pt acknowledges this and says just trying to keep peer quiet Discussed case w/ nursing who reports patient has sundowning which seems to start around 3pm; will move trazodone dose to 2pmg -will also consider changing Zyprexa AM dose to BID with 2.5mg at 9:00 and 2.5mg at 2pm 05/20 little better with trazodone at 14:00; will defer to primary team whether to split up Zyprexa as well. 05/27/22: Continue current plan of care Plan 1. REMAIN ON 1:1 2. Continue blood work and urinalysis to rule out acute UTI. 3. Start Risperdal 0.5 mg p.o. b.i.d. to target psychosis. Risperdal was discontinue on May 11. 4. OT referral for [place] and other cognitive test. [place] scored 01/02 5. Radiology studies. 6. Start Zyprexa 7.5 at bedtime and p.r.n. Zydis 10 mg p.o. b.i.d.. On May 22 we increased Zyprexa up to 10 mg at bedtime. 7. Ativan 1 mg in the afternoon before was discontinued on May 17 due to disinhibition.. 8. CHANGE TO Trazodone 25 mg p.o. t.i.d. with 2nd dose at 2pm (instead of 3pm) to better address ing. Trazodone was increased up to 50 mg p.o. t.i.d. to target anxiety on May 22. 9. Start Zyprexa 2.5 mg in the morning on May 20. 10. Trazodone 50 mg p.o. b.i.d. p.r.n. anxiety. We will discontinue Atarax because it could disinhibited and confused her due to the anticholinergic effect. Reason for contiued inpatient stay Substantial Risk for: inability to function, rapid decompensation and med/psych decompensation Time Spent With Patient Time: Total time managing care of this patient today _20___ minutes.
[2022-05-29 18:00] VITALS: BP 97/60; PULSE 66; RESP 16; TEMP 36.6; O2SAT 99
[2022-05-29] MEDS: Donepezil HCl 10 MG TABLET PO (20:49)
[2022-05-29] MEDS: OLANZapine 10 MG TABLET PO (20:49)
[2022-05-30] MEDS: Levothyroxine Sodium 75 MCG TABLET PO (06:42)
[2022-05-30 09:39] VITALS: PULSE 65; RESP 16; TEMP 36.4; O2SAT 98
[2022-05-30] MEDS: Sertraline HCL 25 MG TABLET 75 MG PO (09:40)
[2022-05-30] MEDS: Atorvastatin Calcium 20 MG TABLET PO (09:41)
[2022-05-30] MEDS: traZODone HCL 50 MG TABLET PO ×3 (09:41→19:55)
[2022-05-30] MEDS: OLANZapine 2.5 MG TABLET PO (09:41)
[2022-05-30] MEDS: Memantine HCl 10 MG TABLET PO ×2 (09:41→19:54)
[2022-05-30] MEDS: OLANZapine 5 MG TABLET PO (09:41)
--- NOTE | 2022-05-30 12:19 | P.PNPSI_ITS ---
Subjective Subjective Date of Service: 05/30/22 Reason For Visit: Agitation in Dementia Subjective Notes: Conditional Voluntary (By healthcare proxy) Healthcare Proxy: Yes Interim History: The nursing staff reported that she still one-to-one for safety. She has been medication compliant and she had been quieter but still paces in the evening. The social worker clinical reported that her is comfortable by taking her back and she is going to be in a waiting list for assisting living facility. On interview the patient denies new symptoms confused but easily redirectable. Mental Status Exam Mental Status Exam Patient Appearance: Well Grooomed and Appropriate Patient Orientation: Person Level of Consciousness: Awake and Appropriate Patient Behavior: Guarded and Cooperative Mood Description: Withdrawn Affect Description: Constricted Patient Cognition Impaired: Yes Ability to Follow Directions: Good Speech Pattern: Clear Hallucinations: None Delusions: Paranoid Ideation Thought Process: Distracted, Evasive and Slowed Thinking Thought Content: positive for [place], positive for Perseveration and positive for Poverty of Content Judgement: Poor Diagnostics Vital Signs (24Hr): Vital Signs - 24 hr 05/29/22 18:00 05/30/22 09:39 Temperature 97.9 F 97.6 F Pulse Rate 66 65 Respiratory Rate 16 16 Blood Pressure 97/60 Pulse Oximetry 99 98 Oxygen Delivery Method Room Air BMI result Body Mass Index 22.5 Labs 05/16/22 08:04 05/16/22 08:04 Imaging Radiology Impressions: ITS Impressions Head CT 05/14/22 13:40 IMPRESSION: No acute intracranial hemorrhage or territorial infarction. Moderate generalized parenchymal volume loss and mild chronic white matter microangiopathy. Medications Medications Current Medications Acetaminophen (Acetaminophen 325 Mg Tablet) 650 mg PO Q6H PRN PRN Reason: Headache/Pain Mild Scale (1-3) Last Admin: 05/21/22 19:41 Dose: 650 mg Al Hydroxide/Mg Hydroxide (Magnesium Hydrox/Alum Hydrox 30 Ml Oral.Susp) 30 ml PO Q6H PRN PRN Reason: Heartburn/Nausea Atorvastatin Calcium (Atorvastatin Calcium 20 Mg Tablet) 20 mg PO DAILY [facility] Last Admin: 05/30/22 09:41 Dose: 20 mg Donepezil HCl (Donepezil Hcl 10 Mg Tablet) 10 mg PO BEDTIME [facility] Last Admin: 05/29/22 20:49 Dose: 10 mg Levothyroxine Sodium (Levothyroxine Sodium 75 Mcg Tablet) 75 mcg PO DAILY@0600 [facility] Last Admin: 05/30/22 06:42 Dose: 75 mcg Lisinopril (Lisinopril 10 Mg Tablet) 10 mg PO DAILY [facility]; Protocol Last Admin: 05/30/22 09:42 Dose: Not Given Magnesium Hydroxide (Milk Of Magnesia 30 Ml Oral.Susp) 30 ml PO DAILY PRN PRN Reason: Constipation Last Admin: 05/15/22 09:44 Dose: 30 ml Memantine (Memantine Hcl 10 Mg Tablet) 10 mg PO BID [facility] Last Admin: 05/30/22 09:41 Dose: 10 mg Olanzapine (Olanzapine Odt 10 Mg Tab.Rapdis) 10 mg TRANSLINGU BID PRN PRN Reason: Psychosis Last Admin: 05/25/22 14:34 Dose: 10 mg Olanzapine (Olanzapine 2.5 Mg Tablet) 2.5 mg PO DAILY [facility] Last Admin: 05/30/22 09:41 Dose: 2.5 mg Olanzapine (Olanzapine 5 Mg Tablet) 5 mg PO DAILY [facility] Last Admin: 05/30/22 09:41 Dose: 5 mg Olanzapine (Olanzapine 10 Mg Tablet) 10 mg PO BEDTIME [facility] Last Admin: 05/29/22 20:49 Dose: 10 mg Sertraline HCl (Sertraline Hcl 25 Mg Tablet) 75 mg PO DAILY [facility] Last Admin: 05/30/22 09:40 Dose: 75 mg Trazodone HCl (Trazodone Hcl 50 Mg Tablet) 50 mg PO BEDTIME PRN PRN Reason: Insomnia Last Admin: 05/27/22 18:08 Dose: 50 mg Trazodone HCl (Trazodone Hcl 50 Mg Tablet) 50 mg PO TID@0900,1400,2100 [facility] Last Admin: 05/30/22 09:41 Dose: 50 mg Trazodone HCl (Trazodone Hcl 50 Mg Tablet) 50 mg PO TID PRN PRN Reason: Anxiety Last Admin: 05/24/22 21:29 Dose: 50 mg Allergies Allergies Allergy/AdvReac Type Severity Reaction Status Date / Time No Known Allergies Allergy Unverified 01/21/20 16:10 Assessment & Plan Assessment & Plan (1) Dementia: Qualifiers: Dementia behavioral or psychological symptom: with agitation Dementia severity: moderate Dementia type: unspecified type Qualified Code(s): F03.B11 - Unspecified dementia, moderate, with agitation Status: Acute Code(s): F03.90 - Unspecified dementia, unspecified severity, without behavioral disturbance, psychotic disturbance, mood disturbance, and anxiety (2) Psychosis: Status: Acute Code(s): F29 - Unspecified psychosis not due to a substance or known physiological condition (3) Delirium: Status: Acute Code(s): R41.0 - Disorientation, unspecified Plan The patient is an elderly female with a history of dementia for the last 4 years that have been worsening. The patient had been in the emergency room 3 times in the last weeks we UTI and worsening of delirium with psychotic symptoms. Recently the patient had the fixed delusion that her had been cheating on her and she had been violent. According to her that is not her baseline. 05/12 continue current treatment plan 05/13 continue current treatment plan 05/19 tried to smoother sleeping roommate with pillow; stopped by 1:1. Pt acknowledges this and says just trying to keep peer quiet Discussed case w/ nursing who reports patient has sundowning which seems to start around 3pm; will move trazodone dose to 2pmg -will also consider changing Zyprexa AM dose to BID with 2.5mg at 9:00 and 2.5mg at 2pm 05/20 little better with trazodone at 14:00; will defer to primary team whether to split up Zyprexa as well. 05/27/22: Continue current plan of care Plan 1. REMAIN ON 1:1 2. Continue blood work and urinalysis to rule out acute UTI. 3. Start Risperdal 0.5 mg p.o. b.i.d. to target psychosis. Risperdal was discontinue on May 11. 4. OT referral for [place] and other cognitive test. [place] scored 30 5. Radiology studies. 6. Start Zyprexa 7.5 at bedtime and p.r.n. Zydis 10 mg p.o. b.i.d.. On May 22 we increased Zyprexa up to 10 mg at bedtime. 7. Ativan 1 mg in the afternoon before sundowning was discontinued on May 17 due to disinhibition.. 8. CHANGE TO Trazodone 25 mg p.o. t.i.d. with 2nd dose at 2pm (instead of 3pm) to better address sundowning. Trazodone was increased up to 50 mg p.o. t.i.d. to target anxiety on May 22. Start Zyprexa 2.5 mg in the morning on May 20. Trazodone 50 mg p.o. b.i.d. p.r.n. anxiety. We will discontinue Atarax b ecause it could disinhibited and confused her due to the anticholinergic effect. Reason for contiued inpatient stay Substantial Risk for: inability to function, rapid decompensation and med/psych decompensation Time Spent With Patient Time: Total time managing care of this patient today __20__ minutes.
[2022-05-30 18:00] VITALS: BP 110/63; PULSE 71; RESP 16; TEMP 36.6; O2SAT 97
[2022-05-30] MEDS: OLANZapine 10 MG TABLET PO (19:53)
[2022-05-30] MEDS: Donepezil HCl 10 MG TABLET PO (19:54)
[2022-05-31] MEDS: traZODone HCL 50 MG TABLET PO ×3 (03:05→13:18)
[2022-05-31] MEDS: Levothyroxine Sodium 75 MCG TABLET PO (05:51)
[2022-05-31 06:00] VITALS: BP 93/60; PULSE 64; RESP 16; TEMP 36.3; O2SAT 97
--- NOTE | 2022-05-31 08:19 | PM.PSYDC ---
DS: Providers Provider Date of Service: 05/31/22 Date of admission: 05/09/22 22:36 Date of discharge: 05/31/22 Primary care physician: Bailey Physician Attending physician on discharge: Jt Nina DS: Diagnosis Discharge Diagnosis (1) Dementia: Status: Acute (2) Psychosis: Status: Acute (3) Delirium: Status: Acute DS: Medications Discharge Medications Home Medications: Home Medications Medication Instructions Recorded Confirmed atorvastatin 20 mg tablet 1 tab PO DAILY 05/01/22 05/08/22 donepezil 10 mg tablet 1 tab PO BEDTIME 05/01/22 05/08/22 levothyroxine 75 mcg tablet 1 tab PO DAILY@0600 05/01/22 05/08/22 lisinopril 10 mg tablet 1 tab PO DAILY 05/01/22 05/08/22 memantine 10 mg tablet 1 tab PO BID 05/01/22 05/08/22 quetiapine 25 mg tablet 1 tab PO BID 05/01/22 05/08/22 sertraline 50 mg tablet 1.5 tab PO DAILY 05/01/22 05/08/22 Mental Status Exam Mental Status Exam Patient Appearance: Well Grooomed and Appropriate Patient Orientation: Person and Situation Level of Consciousness: Awake and Appropriate Patient Behavior: Guarded and Cooperative Mood Description: Calm and Apprehensive Affect Description: Constricted Patient Cognition Impaired: Yes Ability to Follow Directions: Good Speech Pattern: Clear Hallucinations: None Delusions: Paranoid Ideation and Bizarre Thought Process: Distracted and Evasive Thought Content: positive for [place], positive for Circumstantial and positive for Poverty of Content Judgement: Poor Data Data Completed and Pending Completed studies during hospitalization [Text1]: 05/15/22 00:00 Urine clean catch - Urine torres top Urine Culture - Final Enterococcus faecalis 05/10/22 14:50 Urine clean catch - Clean Catch Midstream Urine Culture - Final 05/08/22 Unknown Urine clean catch - Urine torres top Urine Culture - Final Imaging Diagnostic Imaging Impressions Head CT 05/14/22 13:40 IMPRESSION: No acute intracranial hemorrhage or territorial infarction. Moderate generalized parenchymal volume loss and mild chronic white matter microangiopathy. DS: Summary Hospital Course Hospital Course: The patient was admitted from the community due to psychotic symptoms elicited by paranoia against her , bizarre delusions and aggressive behavior. Please see the HPI of the admission note for further details. The patient carries a diagnosis of dementia and she had being deteriorating in the last years. On admission, the patient was very psychotic and disorganized, restless stating that her was cheating on her with bizarre delusions regarding her daughter having a child, unable to follow an interview due to her disorganized thought process. The patient was signed into the hospital under a conditional voluntary signed but her healthcare proxy. Apparently, the patient had several UTIs in the last weeks that worsened her condition. She was treated with antibiotics the 1st days since there was a mild UTI that was resolved in the 1st days. We discussed at length risks, benefits, side-effects and alternatives and we start her on Zyprexa titrated slowly up to 10 mg p.o. q.h.s. and low doses during the day. The patient eventually improved, she was able to participate in groups and heard elusive his statements reduced but she was still very restless and anxious. She was initially treated with p.r.n. Atarax but it was clear that that disinhibited her more. We changed to trazodone in a skilled room under 25 mg p.o. t.i.d. with some improvement so we increased it to 50 mg with a better result. Since the patient's behavior improved, we discussed discharge planning. We have several family meetings with her and family and they are willing to take her back home, even though that her dementia was very advance and her Andrea test was quite low. She was placed on waiting list for an assisted living facility. Time spent discussing smoking cessation with patient: 3 to 10 minutes Status at Discharge Cognitive/behavioral status at discharge: Impaired at baseline Functional status at discharge: independent ambulation Overall status at discharge: patient is back to baseline Time Spent with Patient Time attestation: Total time managing care of this patient today __30__ minutes. Time spent: Less than 30 minutes Discharge Plan Discharge Anticipated Discharge Date/Time: 05/31/22 08:24 Patient Disposition: Home Health Service Discharge Diagnosis: Psychotic disorder NOS Dementia advanced Referrals: Suze Horn Geriatric CLINICAL SCIENCES PROFESSOR [Other] - 06/06/22 2:00 pm (Your first appointment with Suze Horn for psychiatry is 06/06/22 at 2PM. She will contact you prior to appointment. ) Eitan Patiño PCP [Other] - 1 Week [facility] [Other] - 3-5 Days (Referral placed for private home care. [facility] will follow up with you to schedule visit. ) Discharge Medications: New trazodone 50 mg Tablet 50 mg PO TID@0900,1400,2100 30 Days Qty: 90 0RF olanzapine 5 mg Tablet 5 mg PO DAILY 30 Days Qty: 30 0RF olanzapine 10 mg Tablet 10 mg PO BEDTIME 30 Days Qty: 30 0RF olanzapine 2.5 mg Tablet 2.5 mg PO DAILY 30 Days Qty: 30 0RF Continued atorvastatin 20 mg tablet 1 tab PO DAILY 30 Days Qty: 30 0RF donepezil 10 mg tablet 1 tab PO BEDTIME 30 Days Qty: 30 0RF levothyroxine 75 mcg tablet 1 tab PO DAILY@0600 30 Days Qty: 30 0RF lisinopril 10 mg tablet 1 tab PO DAILY 30 Days Qty: 30 0RF sertraline 50 mg tablet 1.5 tab PO DAILY 30 Days Qty: 45 0RF memantine 10 mg tablet 1 tab PO BID 30 Days Qty: 60 0RF Discontinued quetiapine 25 mg tablet 1 tab PO BID Discharge Orders: Discharge Order (Routine); Ordered 05/31/22 Ordered By: Jt Nina Diet: Advance to usual diet Activity on Discharge: As tolerated Stand Alone Forms: Patient Portal Discharge page Care Plan Goals: Care plan goals achieved in this admission Health Concerns: Continue treatment with primary healthcare Plan of Treatment: Continue medication management as an outpatient. Assessment: The patient is a 67-year-old female with a prior diagnosis of dementia who was admitted for psychotic symptoms with bizarre delusions and paranoia. She was placed of antibiotics due to UTI, also antipsychotics and trazodone with for improvement of her condition. Since there were no safety concerns discharge planning was discussed.
[2022-05-31] MEDS: OLANZapine 2.5 MG TABLET PO (08:39)
[2022-05-31] MEDS: OLANZapine 5 MG TABLET PO (08:39)
[2022-05-31] MEDS: Memantine HCl 10 MG TABLET PO (08:39)
[2022-05-31] MEDS: Sertraline HCL 25 MG TABLET 75 MG PO (08:39)
[2022-05-31] MEDS: Atorvastatin Calcium 20 MG TABLET PO (08:39)
== END 2022-05-31 14:25 | disposition home health service (06) | DRG 885 ==
LOC: HO.ED 05-09 16:30 → HO.PGERI 05-09 22:40
PROVIDERS: Emergency Medicine; Psychiatry & Neurology Psychiatry; Admitting Provider Psychiatry & Neurology Psychiatry; Emergency Provider Emergency Medicine Emergency Medical Services; Visit Provider Psychiatry & Neurology Psychiatry
DX: F29 Unspecified psychosis not due to a substance or known physiological condition (principal); F03.B11 Unspecified dementia, moderate, with agitation; F05 Delirium due to known physiological condition; Z20.822 Contact with and (suspected) exposure to COVID-19; Z87.891 Personal history of nicotine dependence; Z79.890 Hormone replacement therapy; Z79.899 Other long term (current) drug therapy
CPT/HCPCS: 36415; 70450; 80048; 80053; 80061; 80076; 80307; 81001; 81003; 82607; 82746; 83036; 84443; 85025; 87086; 87088; 87186; 87635; 93005; 99285

== ENCOUNTER 2022-11-19 09:40 | Outpatient (REF) | payer MEDICARE, OTHER, SELFPAY ==
[2022-11-19 10:10] LABS: MANUAL DIFF FLAG NO
[2022-11-19 10:35] LABS: Basophils Absolute Auto 0.1 X10*3/uL (0.0-0.2); Basophils Percent Auto 1.1 % (0-2); Eosinophils Absolute Auto 0.2 X10*3/uL (0.0-0.4); Eosinophils Percent Auto 2.8 % (0-4); Hematocrit 41.5 % (37.0-47.0); Hemoglobin 13.4 g/dl (12.0-16.0); Imm Gran Abs Auto 0.03 X10*3/uL (0.00-0.03); Imm Gran Pct Auto 0.4 % (0.0-0.4); Lymphocytes Absolute Auto 1.6 X10*3/uL (1.2-4.9); Lymphocytes Percent Auto 22.3 % (20-40); Mean Corpuscular HGB Conc 32.3 g/dl (31.0-35.0); Mean Corpuscular Hemoglobin 27.9 pg (27.0-33.0); Mean Corpuscular Volume 86.3 fL (80.0-98.0); Mean Platelet Volume 12.1 fL (9.4-12.3); Monocytes Absolute Auto 0.5 X10*3/uL (0.1-1.2); Monocytes Percent Auto 7.3 % (2-11); Neutrophils Absolute Auto 4.8 x10*3/uL (2.0-8.3); Neutrophils Percent Auto 66.1 % (45-73); Platelet Count 275 X10*3/uL (160-400); Red Blood Count 4.81 X10*6/uL (4.20-5.50); Red Cell Distribution Width 13.4 % (11.0-16.0); White Blood Count 7.2 X10*3/uL (4.8-10.8)
[2022-11-19 13:12] LABS: Alanine Aminotransferase 17 U/L (0-31); Albumin Level 4.6 g/dL (3.5-5.0); Alkaline Phosphatase 68 U/L (39-117); Anion Gap 14 (12-20); Aspartate Amino Transferase 17 U/L (5-31); Bilirubin Total 0.6 mg/dL (0.0-1.0); Blood Urea Nitrogen 20 mg/dL (9-16); Calcium 10.2 mg/dL (8.4-10.2); Carbon Dioxide 26 mmol/L (22-29); Chloride 106 mmol/L (96-108); Estimated Glomerular Filt Rate 57; Glucose Random 86 mg/dL (60-115); Potassium 4.1 mmol/L (3.3-5.1); Sodium 142 mmol/L (135-145); Total Protein 7.5 g/dL (6.5-8.0)
== END 2022-11-19 09:41 | disposition home or self-care (01) ==
LOC: HO.LAB 09:40
PROVIDERS: Visit Provider Nurse Practitioner Psychiatric/Mental Health
DX: F33.1 Major depressive disorder, recurrent, moderate (principal); F03.90 Unspecified dementia, unspecified severity, without behavioral disturbance, psychotic disturbance, mood disturbance, and anxiety
CPT/HCPCS: 36415; 80053; 85025

== ENCOUNTER 2022-12-05 18:00 | Outpatient (REF) | payer MEDICARE, OTHER, SELFPAY | END 2022-12-05 18:01 | disposition home or self-care (01) | LOC: HO.LNP 18:00 | PROVIDERS: Visit Provider Nurse Practitioner Psychiatric/Mental Health | DX: Z13.89 Encounter for screening for other disorder (principal) ==

== ENCOUNTER 2023-02-01 00:25 | Emergency (ER) | payer MEDICARE, OTHER, SELFPAY ==
[2023-02-01 00:42] VITALS: BP 127/67; BP 135/65; PULSE 61; PULSE 70; RESP 18; TEMP 36.4; O2SAT 99; BMI 24.7
--- NOTE | 2023-02-01 00:43 | ED_ITS ---
HPI - General Adult General Chief complaint: Fall Stated complaint: wandering, reported fall Time Seen by Provider: 02/01/23 00:28 Source: patient and EMS Mode of arrival: EMS Limitations: other (Dementia) History of Present Illness HPI narrative: Patient comes to the emergency room via ambulance from home. According to EMS, the patient's reported that the patient has been out walking in the neighborhood. Patient told her that she injured her 5th pinky finger. Patient's called 911 and asked them to bring the patient to the hospital. Patient has history of dementia, psychosis. Patient is awake and alert, states that she has no idea why she is here. Patient states that she is not sure if she fell, states that she has no pain whatsoever in her fingers. Related Data Previous Rx's Medication Instructions Recorded atorvastatin 20 mg tablet 1 tab PO DAILY 30 days #30 tabs 05/31/22 donepezil 10 mg tablet 1 tab PO BEDTIME 30 days #30 tabs 05/31/22 levothyroxine 75 mcg tablet 1 tab PO DAILY@0600 30 days #30 05/31/22 tabs lisinopril 10 mg tablet 1 tab PO DAILY 30 days #30 tabs 05/31/22 memantine 10 mg tablet 1 tab PO BID 30 days #60 tabs 05/31/22 olanzapine 10 mg tablet 10 mg PO BEDTIME 30 days #30 tabs 05/31/22 olanzapine 2.5 mg tablet 2.5 mg PO DAILY 30 days #30 tabs 05/31/22 olanzapine 5 mg tablet 5 mg PO DAILY 30 days #30 tabs 05/31/22 sertraline 50 mg tablet 1.5 tab PO DAILY 30 days #45 tabs 05/31/22 trazodone 50 mg tablet 50 mg PO TID@0900,1400,2100 30 05/31/22 days #90 tabs Allergies Allergy/AdvReac Type Severity Reaction Status Date / Time No Known Allergies Allergy Verified 02/01/23 03:42 Review of Systems 2 Review of Systems: Constitutional : No Weight loss, No Fever, No Chills, No Night Sweats, No Fatigue, No Malaise ENT/Mouth : No Hearing loss, No Ear Pain, No Nasal Congestion, No Sinus Pain, No Hoarseness, No sore throat, No Rhinorrhea, No Swallowing Difficulty Eyes: No Eye Pain, No Swelling, No Redness, No Foreign Body, No Discharge, No Vision Changes Cardiovascular : No Chest Pain, No SOB, No Dyspnea on Exertion, No Orthopnea, No Edema, No Palpitations Respiratory : No Cough, No Sputum, No Wheezing, No Smoke Exposure, No Dyspnea Gastrointestinal : No Nausea, No Vomiting, No Diarrhea, No Constipation, No abdominal Pain, No Hematochezia, No Melena Genitourinary : no irregular bleeding, No Dysuria, No Urinary Frequency, No Hematuria, No Urinary Incontinence, No Urgency, No Flank Pain, No Urinary Flow Changes, No Hesitancy Musculoskeletal : No joint pain, No Myalgias, No Joint Swelling Skin : No Skin Lesions, No rash Neuro : No Weakness, No Numbness, No Paresthesias, No Loss of Consciousness, No Dizziness, No Headache Psych : No Anxiety/Panic, No Depression, No SI/HI/AH/VH, No Social Issues, Heme/Lymph: No Bruising, No Bleeding,No Lymphadenopathy Endocrine : No Polyuria, No Polydipsia, No Temperature Intolerance [facility] Past Medical History Medical History (Updated 02/01/23 @ 01:45 by Mya Lyn MD) Psychosis UTI (urinary tract infection) Dementia Social History Social History (Updated 05/08/22 @ 15:23 by Chasidy Santiago DO) Household Members: Spouse Housing: House Do you presently have visiting nurse or other home services: No Alcohol intake: current Alcohol intake frequency: holidays/special occasions only Patient Tobacco Use Status: Former Tobacco user Tobacco use type: Cigarette Smoked in Last 30 Days: No e-Cigarette/Vaping Use: Former Use Second Hand Smoke Exposure: No Use of substances other than those prescribed or required for medical reasons: No Advance Directives: Yes Advance Directives on File: Yes Advance Directives Date on File: 06/01/22 service: No Sexual orientation: Straight/Heterosexual Physical Exam ED Vital Signs: Vital Signs - 24 hr 02/01/23 00:42 02/01/23 04:16 02/01/23 06:15 Temperature 97.6 F 98.7 F 98.3 F Pulse Rate 61 51 58 Respiratory Rate 18 16 16 Blood Pressure 127/67 141/74 H 141/78 H Pulse Oximetry 99 98 98 Oxygen Delivery Method Room Air Room Air Room Air BMI result Body Mass Index 24.7 Const Other: Appearance: Alert. Oriented X2. No acute distress. Eyes: Pupils equal, round and reactive to light. ENT: Pharynx normal. Neck: Normal inspection. Neck supple. No lymph nodes noted. No crepitus CVS: Normal heart rate and rhythm. Pulses normal. Normal S1 and S2 Respiratory: No respiratory distress. Breath sounds normal. No Wheezing. No rales Abdomen: Soft and nontender. No rigidity. No distention. Skin: Skin warm and dry. Normal skin color. Normal skin turgor. Extremities: No lower extremity edema. No Lacerations. No Rash Neuro: Oriented X 2. No motor deficit. No sensory deficit. Moving all extremities. No slurred speech. CN 2 through 12 grossly intact Psych: calm, cooperative, normal affect Course Course Course Narrative: -all of patient's labs pending including urinalysis -patient has normal physical exam on her hands, x-rays not indicated at this time. Patient has full range of motion and indicates she has no pain. -once we have the workup completed, will get in touch with the patient's , unclear if the patient was sent here per patient's 's request for placement? -Physician observation started at 00:30 Medical Decision Making Medical Decision Making [facility] Narrative: -patient's labs are at baseline -patient's states that he did not want his to come by the paramedics insisted. Patient's feels comfortable taking his back home. Differential Diagnosis Differential Diagnoses: The differential diagnosis associated with the presentation includes (Dementia, UTI, psychosis) Admission/Observation Consideration of admission/observation: Escalation of care including admission/observation considered (Patient will remain under observation in the emergency room until we speak with the patient's regarding disposition) Lab Data [facility] Lab Attestation statement: I reviewed the patient's lab results. 02/01/23 01:30 02/01/23 01:30 Labs: Lab Results 02/01/23 02/01/23 Range/Units 01:30 02:27 WBC 8.4 (4.8-10.8) X10*3/uL RBC 3.98 L (4.20-5.50) X10*6/uL Hgb 11.3 L (12.0-16.0) g/dl Hct 35.4 L (37.0-47.0) % MCV 88.9 (80.0-98.0) fL MCH 28.4 (27.0-33.0) pg MCHC 31.9 (31.0-35.0) g/dl RDW 12.8 (11.0-16.0) % Plt Count 219 (160-400) X10*3/uL MPV 12.0 (9.4-12.3) fL Immature Gran % (Auto) 0.4 (0.0-0.4) % Neut % (Auto) 66.5 (45-73) % Lymph % (Auto) 21.6 (20-40) % [place] % (Auto) 7.8 (2-11) % Eos % (Auto) 2.9 (0-4) % Baso % (Auto) 0.8 (0-2) % Lymph # (Auto) 1.8 (1.2-4.9) X10*3/uL [place] # (Auto) 0.7 (0.1-1.2) X10*3/uL Eos # (Auto) 0.2 (0.0-0.4) X10*3/uL Baso # (Auto) 0.1 (0.0-0.2) X10*3/uL Abs Immat Gran (auto) 0.03 (0.00-0.03) X10*3/uL Absolute Neuts (auto) 5.6 (2.0-8.3) x10*3/uL Absolute Nucleated RBC 0.000 (0.0-0.012) X10*3/uL Nucleated RBC % (auto) 0.0 (0.0-0.2) /100WBC Sodium 144 (135-145) mmol/L Potassium 4.1 (3.3-5.1) mmol/L Chloride 111 H (96-108) mmol/L Carbon Dioxide 23 (22-29) mmol/L Anion Gap 14 (12-20) BUN 28 H (9-16) mg/dL Creatinine 0.88 (0.5-1.4) mg/dL Estim Creat Clear Calc 58.1 Estimated GFR > 60 Random Glucose 118 H (60-115) mg/dL Calcium 9.3 D (8.4-10.2) mg/dL Total Bilirubin 0.2 (0.0-1.0) mg/dL Direct Bilirubin < 0.2 (0.0-0.5) mg/dL AST 22 (5-31) U/L ALT 30 (0-31) U/L Alkaline Phosphatase 75 (39-117) U/L Total Protein 6.6 (6.5-8.0) g/dL Albumin 4.0 (3.5-5.0) g/dL Urine Color Yellow Urine Appearance Clear Urine pH 5.5 (5.0-9.0) Ur Specific [place] 1.020 (1.005-1.025) Urine Protein Negative (Neg-Trace) mg/dL Urine Glucose (UA) Negative (Negative) mg/dL Urine Ketones Negative (Negative) mg/dL Urine Blood Negative (Negative) Urine Nitrite Negative (Negative) Ur Leukocyte Esterase Trace H (Negative) Urine RBC 0-2 (0-2) /HPF Urine WBC 0-5 (0-5) /HPF Ur Squamous Epith Cells 0-2 (0-2) /HPF Urine Bacteria None Seen (None Seen) Hyaline Casts 0-2 (0-2) /LPF Urine Opiates Screen Not Detected (Not Detect) Urine Fentanyl Screen Not Detected (Not Detect) Ur Barbiturates Screen Not Detected (Not Detect) Ur Phencyclidine Scrn Not Detected (Not Detect) Ur Amphetamines Screen Not Detected (Not Detect) U Benzodiazepines Scrn Not Detected (Not Detect) Urine Cocaine Screen Not Detected (Not Detect) U Marijuana (THC) Screen Not Detected (Not Detect) Ethyl Alcohol < 10 mg/dL Discharge Plan Discharge Clinical Impression: Dementia Patient Disposition: Home, Self-Care Instructions: Dementia (ED) Additional Instructions: Please follow-up with your primary care physician tomorrow. If you have any worsening or new symptoms, please return to the emergency room or call 911 Prescriptions: No Action trazodone 50 mg Tablet 50 mg PO TID@0900,1400,2100 30 Days Qty: 90 0RF olanzapine 5 mg Tablet 5 mg PO DAILY 30 Days Qty: 30 0RF olanzapine 10 mg Tablet 10 mg PO BEDTIME 30 Days Qty: 30 0RF olanzapine 2.5 mg Tablet 2.5 mg PO DAILY 30 Days Qty: 30 0RF atorvastatin 20 mg tablet 1 tab PO DAILY 30 Days Qty: 30 0RF donepezil 10 mg tablet 1 tab PO BEDTIME 30 Days Qty: 30 0RF levothyroxine 75 mcg tablet 1 tab PO DAILY@0600 30 Days Qty: 30 0RF lisinopril 10 mg tablet 1 tab PO DAILY 30 Days Qty: 30 0RF sertraline 50 mg tablet 1.5 tab PO DAILY 30 Days Qty: 45 0RF memantine 10 mg tablet 1 tab PO BID 30 Days Qty: 60 0RF
--- NOTE | 2023-02-01 00:55 | PC.NURSE ---
Assumed care of pt. 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 Hx of dementia. No obvious injury to R hand.
[2023-02-01 01:34] LABS: MANUAL DIFF FLAG NO
[2023-02-01 01:38] LABS: Basophils Absolute Auto 0.1 X10*3/uL (0.0-0.2); Basophils Percent Auto 0.8 % (0-2); Eosinophils Absolute Auto 0.2 X10*3/uL (0.0-0.4); Eosinophils Percent Auto 2.9 % (0-4); Hematocrit 35.4 % (37.0-47.0); Hemoglobin 11.3 g/dl (12.0-16.0); Imm Gran Abs Auto 0.03 X10*3/uL (0.00-0.03); Imm Gran Pct Auto 0.4 % (0.0-0.4); Lymphocytes Absolute Auto 1.8 X10*3/uL (1.2-4.9); Lymphocytes Percent Auto 21.6 % (20-40); Mean Corpuscular HGB Conc 31.9 g/dl (31.0-35.0); Mean Corpuscular Hemoglobin 28.4 pg (27.0-33.0); Mean Corpuscular Volume 88.9 fL (80.0-98.0); Monocytes Absolute Auto 0.7 X10*3/uL (0.1-1.2); Monocytes Percent Auto 7.8 % (2-11); Neutrophils Absolute Auto 5.6 x10*3/uL (2.0-8.3); Neutrophils Percent Auto 66.5 % (45-73); Platelet Count 219 X10*3/uL (160-400); Red Blood Count 3.98 X10*6/uL (4.20-5.50); Red Cell Distribution Width 12.8 % (11.0-16.0); White Blood Count 8.4 X10*3/uL (4.8-10.8)
[2023-02-01 01:49] LABS: Alanine Aminotransferase 30 U/L (0-31); Alkaline Phosphatase 75 U/L (39-117); Anion Gap 14 (12-20); Aspartate Amino Transferase 22 U/L (5-31); Bilirubin Direct < 0.2 mg/dL (0.0-0.5); Bilirubin Total 0.2 mg/dL (0.0-1.0); Blood Urea Nitrogen 28 mg/dL (9-16); Calcium 9.3 mg/dL (8.4-10.2); Carbon Dioxide 23 mmol/L (22-29); Chloride 111 mmol/L (96-108); Creatinine Clr Calc Pharmacy 58.1; Estimated Glomerular Filt Rate > 60; Ethanol < 10 mg/dL; Glucose Random 118 mg/dL (60-115); Potassium 4.1 mmol/L (3.3-5.1); Sodium 144 mmol/L (135-145); Total Protein 6.6 g/dL (6.5-8.0)
[2023-02-01 02:34] LABS: Appearance Urine Clear; Color Urine Yellow; Glucose Urine UA Negative (Negative); Leukocyte Esterase Urine Trace (Negative); Nitrite Urine Negative (Negative); PH 5.5 (5.0-9.0); UMIC TRIGGER UACC YES; Urine Blood Negative (Negative); Urine Ketones Negative (Negative); Urine Protein Negative (Neg-Trace)
[2023-02-01 02:39] LABS: Bacteria Urine None Seen (None Seen); Hyaline Casts Urine 0-2 /LPF (0-2); RBC Urine 0-2 /HPF (0-2); Squamous Epithelial Cell Urine 0-2 /HPF (0-2); WBC Urine 0-5 /HPF (0-5)
[2023-02-01 02:47] LABS: Amphetamine Screen Urine Not Detected (Not Detect); Barbiturates, Urine Not Detected (Not Detect); Benzodiazepines Screen Urine Not Detected (Not Detect); Cannabinoid Screen Urine Not Detected (Not Detect); Cocaine Screen Urine Not Detected (Not Detect); Fentanyl, urine Not Detected (Not Detect); Opiate Screen Urine Not Detected (Not Detect); Phencyclidine Screen Urine Not Detected (Not Detect)
--- NOTE | 2023-02-01 02:55 | PC.NURSE ---
Attempted to call , no answer, left message for call back.
[2023-02-01 04:16] VITALS: BP 141/74; PULSE 51; RESP 16; TEMP 37.1; O2SAT 98
--- NOTE | 2023-02-01 04:17 | MHC.EDTECH ---
THIS PCT ASSUMED CARE OF PT AT 0300 ,0400 ,ROUNDING DONE AND VITALS SIGN TAKEN ,PT AWAKE IN BED RESTING ,WILL CONTINUE TO MONITOR .
--- NOTE | 2023-02-01 04:43 | PC.NURSE ---
Multiple called made to contact for corroborating information on hospital visit. No answer on cell or home #s. VM left for return call.
[2023-02-01 06:15] VITALS: BP 141/78; PULSE 58; RESP 16; TEMP 36.8; O2SAT 98
== END 2023-02-01 07:37 | disposition home or self-care (01) ==
PROVIDERS: Emergency Provider Emergency Medicine
DX: F03.911 Unspecified dementia, unspecified severity, with agitation (principal); F05 Delirium due to known physiological condition; Z79.899 Other long term (current) drug therapy; Z87.891 Personal history of nicotine dependence
CPT/HCPCS: 36415; 80048; 80076; 80307; 81001; 85025; 99284

== ENCOUNTER 2023-06-04 20:17 | Emergency (ER) | payer MEDICARE, OTHER, SELFPAY ==
--- NOTE | ~2023-06-04 | US_ITS ---
EXAMINATION: US ABDOMEN LIMITED CLINICAL INFORMATION: ?cirrhosis, elevated ammonia, confusion. COMPARISON: None available. TECHNIQUE: Real-time imaging of the right upper quadrant abdominal viscera. FINDINGS: PANCREAS: The visualized proximal portion of the pancreas is unremarkable. The distal portion is obscured secondary to overlying bowel gas. LIVER: The liver is normal in size. The liver contour is normal. Hepatic echogenicity appears coarsened and mildly increased. No focal hepatic lesion. There is no intrahepatic biliary duct dilatation seen. GALLBLADDER: The gallbladder is physiologically distended without evidence of stones, sludge, polyps, wall thickening or pericholecystic fluid. COMMON BILE DUCT: Normal in caliber measuring 0.3 cm in diameter. RIGHT KIDNEY: No hydronephrosis. No renal calculi identified. There is a mid renal cyst measuring up to 2.7 cm; no follow-up recommended. The kidney measures 9.0 cm in maximum dimension. FREE FLUID: None. US/US abdomen limited IMPRESSION: Mildly increased hepatic echogenicity and coarsened echotexture, which could reflect underlying hepatocellular disease. No significant contour nodularity to specifically indicate cirrhosis.
[2023-06-04 20:27] VITALS: PULSE 74; O2SAT 98
[2023-06-04 20:36] VITALS: BP 109/55; PULSE 66; RESP 18; TEMP 36.8; O2SAT 96; BMI 23.1
--- NOTE | 2023-06-04 21:05 | ED.AMS ---
HPI - Altered Mental Status General Chief Complaint: Altered Mental Status Stated Complaint: POSITIVE BLOOD CULTURE Time Seen by Provider: 06/04/23 21:03 Source: patient, family and old records reviewed Mode of arrival: ambulatory Limitations: no limitations History of Present Illness HPI narrative: 68 yo female with PMH of dementia, psychosis, hypothyroidism, HLD, enteroccocus UTI seen here and treated for psychosis and delusions 1 year ago in our inpatient unit presents to our ED today with worsening paranoia, wandering, agitation. The is not really able to manage her and has been trying to get her into a facility possibly heard from [employer]. She has been seeing a neuropsychiatrist through [facility] who took her off all of the meds from her last inpatient stay and she is on really just belsomra, donepezil, and sertraline. Her sister in law Faiza is here providing a lot of the information states she thinks was around the time the medications were changed though her relays it was gradual. No fevers, no trauma Faiza's number [phone] complaint: other (worsening dementia) Onset (ago): week(s) Timing confirmed by: family member Severity: severe Consistency of symptoms: waxing and waning Context: history of similar presentation Associated symptoms: denies other symptoms Related Data Home Medications Medication Instructions Recorded Confirmed donepezil 5 mg tablet 5 mg PO BEDTIME 06/04/23 06/04/23 memantine 5 mg tablet 5 mg PO BID 06/04/23 06/04/23 suvorexant 10 mg tablet (Belsomra) 10 mg PO BEDTIME 06/04/23 06/04/23 Previous Rx's Medication Instructions Recorded atorvastatin 20 mg tablet 1 tab PO DAILY 30 days #30 tabs 05/31/22 donepezil 10 mg tablet 1 tab PO BEDTIME 30 days #30 tabs 05/31/22 levothyroxine 75 mcg tablet 1 tab PO DAILY@0600 30 days #30 05/31/22 tabs lisinopril 10 mg tablet 1 tab PO DAILY 30 days #30 tabs 05/31/22 sertraline 50 mg tablet 1.5 tab PO DAILY 30 days #45 tabs 05/31/22 Allergies Allergy/AdvReac Type Severity Reaction Status Date / Time No Known Allergies Allergy Verified 02/01/23 03:42 Review of Systems Review of Systems: ROS unable to be obtained due to cognitive impairment [facility] Past Medical History Medical History (Updated 06/04/23 @ 21:26 by Chasidy Santiago DO) Psychosis UTI (urinary tract infection) Dementia Social History Social History (Updated 05/08/22 @ 15:23 by Chasidy Santiago DO) Household Members: Spouse Housing: House Do you presently have visiting nurse or other home services: No Alcohol intake: current Alcohol intake frequency: holidays/special occasions only Patient Tobacco Use Status: Former Tobacco user Tobacco use type: Cigarette Smoked in Last 30 Days: No e-Cigarette/Vaping Use: Former Use Second Hand Smoke Exposure: No Use of substances other than those prescribed or required for medical reasons: No Advance Directives: Yes Advance Directives on File: Yes Advance Directives Date on File: 06/01/22 service: No Sexual orientation: Straight/Heterosexual Physical Exam ED Vital Signs: Vital Signs - 24 hr 06/04/23 20:36 Temperature 98.2 F Pulse Rate 66 Respiratory Rate 18 Blood Pressure 109/55 L Pulse Oximetry 96 Oxygen Delivery Method Room Air BMI result Body Mass Index 23.1 Appearance: Alert. Pleasantly confused but appears over stimulated No acute distress. Eyes: Pupils equal, round and reactive to light. Tracks normally ENT: Pharynx normal. atraumatic Neck: Normal inspection. Neck supple. CVS: Normal heart rate and rhythm. Pulses normal. Respiratory: No respiratory distress. Breath sounds normal. Abdomen: Soft and non-tender. Skin: Skin warm and dry. Normal skin color. Normal skin turgor. Extremities: No lower extremity edema. Neuro: confused at baseline No motor deficit. No sensory deficit. Course Course Course Narrative: Physician observation started at 1029am. Patient placed in physician observation because the patient needed more time for CARE team to assess the need for psych admission. At the time observation was started the patient's vitals were stable, patient is alert but confused and intermittently slightly agitated, Neuro: nonfocal, CV RRR, Lungs clear Reevaluation(s) Reevaluation #1: will wait on urine culture only 6 to 10 wbc and no bacteria Medications Administered Generic Name Dose Route Start Last Admin Trade Name Freq PRN Reason Stop Dose Admin Olanzapine 10 mg 06/04/23 21:19 06/04/23 22:21 Olanzapine Odt 10 Mg Tab.Rapdis TRANSLINGU 10 mg ONCE PRN Administration anxiety/restlessness Medical Decision Making Medical Decision Making MDM Narrative: 68 yo female with PMH of dementia, psychosis, hypothyroidism, HLD, enteroccocus UTI here with c/o paranoia, agitation, worsening dementia behaviors - no trauma, no fevers, possibly related to medication changes at this time will need labs, UA - I did notify family if she becomes agitated overnight as expected in new setting in ED will need medications and they are aware and agree. Differential Diagnosis Differential Diagnoses: The differential diagnosis associated with the presentation includes UTI, worsening dementia, medication needs Admission/Observation Consideration of admission/observation: Escalation of care including admission/observation considered observe until seen by [facility] and CM Consult Healthcare Provider Management of the patient was discussed with: Behavioral Health Provider Lab Data [facility] Lab Attestation statement: I reviewed the patient's lab results. 06/04/23 21:41 06/04/23 21:41 Labs: Lab Results 06/04/23 Range/Units 21:41 WBC 8.5 (4.8-10.8) X10*3/uL RBC 4.28 (4.20-5.50) X10*6/uL Hgb 12.0 (12.0-16.0) g/dl Hct 36.6 L (37.0-47.0) % MCV 85.5 (80.0-98.0) fL MCH 28.0 (27.0-33.0) pg MCHC 32.8 (31.0-35.0) g/dl RDW 13.0 (11.0-16.0) % Plt Count 244 (160-400) X10*3/uL MPV 12.0 (9.4-12.3) fL Immature Gran % (Auto) 0.2 (0.0-0.4) % Neut % (Auto) 61.1 (45-73) % Lymph % (Auto) 26.8 (20-40) % Kerr % (Auto) 7.4 (2-11) % Eos % (Auto) 3.4 (0-4) % Baso % (Auto) 1.1 (0-2) % Lymph # (Auto) 2.3 (1.2-4.9) X10*3/uL Kerr # (Auto) 0.6 (0.1-1.2) X10*3/uL Eos # (Auto) 0.3 (0.0-0.4) X10*3/uL Baso # (Auto) 0.1 (0.0-0.2) X10*3/uL Abs Immat Gran (auto) 0.02 (0.00-0.03) X10*3/uL Absolute Neuts (auto) 5.2 (2.0-8.3) x10*3/uL Absolute Nucleated RBC 0.000 (0.0-0.012) X10*3/uL Nucleated RBC % (auto) 0.0 (0.0-0.2) /100WBC Sodium 140 (135-145) mmol/L Potassium 3.9 (3.3-5.1) mmol/L Chloride 109 H (96-108) mmol/L Carbon Dioxide 25 (22-29) mmol/L Anion Gap 10 L (12-20) BUN 31 H (9-16) mg/dL Creatinine 0.94 (0.5-1.4) mg/dL Estim Creat Clear Calc 53.6 Estimated GFR 59 Random Glucose 110 (60-115) mg/dL Calcium 9.2 (8.4-10.2) mg/dL Magnesium 2.2 (1.6-2.6) mg/dL Total Bilirubin 0.2 (0.0-1.0) mg/dL Direct Bilirubin < 0.2 (0.0-0.5) mg/dL AST 26 (5-31) U/L ALT 38 H (0-31) U/L Alkaline Phosphatase 84 (39-117) U/L Total Protein 6.7 (6.5-8.0) g/dL Albumin 4.0 (3.5-5.0) g/dL Lipase 45 (8-78) U/L TSH 3.15 (0.32-4.0) uIU/mL Urine Color Yellow Urine Appearance Clear Urine pH 5.5 (5.0-9.0) Ur Specific [place] >= 1.030 H (1.005-1.025) Urine Protein Negative (Neg-Trace) mg/dL Urine Glucose (UA) Negative (Negative) mg/dL Urine Ketones Trace (Negative) mg/dL Urine Blood Negative (Negative) Urine Nitrite Negative (Negative) Ur Leukocyte Esterase Small (1+) H (Negative) Urine RBC 0-2 (0-2) /HPF Urine WBC 6-10 H (0-5) /HPF Ur Squamous Epith Cells 3-5 (0-2) /HPF Urine Bacteria None Seen (None Seen) Hyaline Casts 0-2 (0-2) /LPF COVID-19 (VIPIN) Negative (Negative) COVID-19 Clin Com See Note Independent Interpretation I performed an independent interpretation of an: EKG Interpretation: Rate: 56 Rhythm: sinus bradycardia Baker: normal Normal P waves. Normal DOLORES. Normal QRS complex. ST T wave : normal no JOSEPHINE qTC: 409 prior studies: no acute ischemia The study has been interpreted contemporaneously by me. . Independent Historian Clinical information obtained from an independent historian. History obtained from or confirmed by: Other (sister in law) External Record Review External record reviewed: Inpatient record Discharge Plan Discharge Clinical Impression: Dementia Qualifiers: Dementia type: unspecified type Dementia behavioral or psychological symptom: with agitation Patient Disposition: Still a Patient Prescriptions: No Action atorvastatin 20 mg tablet 1 tab PO DAILY 30 Days Qty: 30 0RF donepezil 10 mg tablet 1 tab PO BEDTIME 30 Days Qty: 30 0RF levothyroxine 75 mcg tablet 1 tab PO DAILY@0600 30 Days Qty: 30 0RF lisinopril 10 mg tablet 1 tab PO DAILY 30 Days Qty: 30 0RF sertraline 50 mg tablet 1.5 tab PO DAILY 30 Days Qty: 45 0RF donepezil 5 mg tablet 5 mg PO BEDTIME memantine 5 mg tablet 5 mg PO BID Belsomra 10 mg tablet 10 mg PO BEDTIME
--- NOTE | 2023-06-04 21:07 | ECG_ITS ---
Test Reason : weakness Blood Pressure : / mmHG Vent. Rate : 056 BPM Atrial Rate : 056 BPM P-R Int : 138 ms QRS Dur : 094 ms QT Int : 424 ms P-R-T Axes : 049 045 051 degrees QTc Int : 409 ms Sinus bradycardia Otherwise normal ECG When compared with ECG of 09-MAY-2022 11:54, No significant change was found Referred By: Chasidy Santiago Electronically Signed By:SUSAN CHARLES MD
--- NOTE | 2023-06-04 21:26 | PHA.MEDREC ---
Pharmacy Consult ? Medication Reconciliation Pharmacy has completed the medication reconciliation. EMS brought list of medications that matched claim history. Rachel Cee, KrunalD
[2023-06-04 21:52] LABS: MANUAL DIFF FLAG NO
[2023-06-04 21:53] LABS: Basophils Absolute Auto 0.1 X10*3/uL (0.0-0.2); Basophils Percent Auto 1.1 % (0-2); Eosinophils Absolute Auto 0.3 X10*3/uL (0.0-0.4); Eosinophils Percent Auto 3.4 % (0-4); Hematocrit 36.6 % (37.0-47.0); Imm Gran Abs Auto 0.02 X10*3/uL (0.00-0.03); Imm Gran Pct Auto 0.2 % (0.0-0.4); Lymphocytes Absolute Auto 2.3 X10*3/uL (1.2-4.9); Lymphocytes Percent Auto 26.8 % (20-40); Mean Corpuscular HGB Conc 32.8 g/dl (31.0-35.0); Mean Corpuscular Volume 85.5 fL (80.0-98.0); Monocytes Absolute Auto 0.6 X10*3/uL (0.1-1.2); Monocytes Percent Auto 7.4 % (2-11); Neutrophils Absolute Auto 5.2 x10*3/uL (2.0-8.3); Neutrophils Percent Auto 61.1 % (45-73); Platelet Count 244 X10*3/uL (160-400); Red Blood Count 4.28 X10*6/uL (4.20-5.50); White Blood Count 8.5 X10*3/uL (4.8-10.8)
[2023-06-04 21:56] LABS: Appearance Urine Clear; Color Urine Yellow; Glucose Urine UA Negative (Negative); Leukocyte Esterase Urine Small (1+) (Negative); Nitrite Urine Negative (Negative); PH 5.5 (5.0-9.0); Specific Gravity - Urine >= 1.030 (1.005-1.025); UMIC TRIGGER UACC YES; Urine Blood Negative (Negative); Urine Ketones Trace mg/dL (Negative); Urine Protein Negative (Neg-Trace)
[2023-06-04 22:06] LABS: COVID-19 Test Negative (Negative); IDNOW Serial# 9DB6401D
[2023-06-04 22:14] LABS: Alanine Aminotransferase 38 U/L (0-31); Alkaline Phosphatase 84 U/L (39-117); Anion Gap 10 (12-20); Aspartate Amino Transferase 26 U/L (5-31); Bilirubin Direct < 0.2 mg/dL (0.0-0.5); Bilirubin Total 0.2 mg/dL (0.0-1.0); Blood Urea Nitrogen 31 mg/dL (9-16); Calcium 9.2 mg/dL (8.4-10.2); Carbon Dioxide 25 mmol/L (22-29); Chloride 109 mmol/L (96-108); Creatinine Clr Calc Pharmacy 53.6; Estimated Glomerular Filt Rate 59; Glucose Random 110 mg/dL (60-115); Lipase 45 U/L (8-78); Magnesium 2.2 mg/dL (1.6-2.6); Potassium 3.9 mmol/L (3.3-5.1); Sodium 140 mmol/L (135-145); Total Protein 6.7 g/dL (6.5-8.0)
[2023-06-04] MEDS: OLANZapine ODT 10 MG TAB.RAPDIS TRANSLINGU (22:21)
[2023-06-04 22:28] LABS: TSH reflex Free T4 3.15 uIU/mL (0.32-4.0)
[2023-06-04 23:06] LABS: Bacteria Urine None Seen (None Seen); Hyaline Casts Urine 0-2 /LPF (0-2); RBC Urine 0-2 /HPF (0-2); UACC Culture Trigger YES
[2023-06-05 01:31] VITALS: BP 115/60; PULSE 68; RESP 16; O2SAT 96
[2023-06-05 06:19] VITALS: BP 112/60; PULSE 70; RESP 16; TEMP 36.7; O2SAT 95
[2023-06-05 07:23] VITALS: BP 98/77; PULSE 96; RESP 14; TEMP 36.5; O2SAT 92
--- NOTE | 2023-06-05 07:27 | PC.NURSE ---
Resumed care of patient, she is currently up and ambulating to the bathroom with staff. Awaiting dispo at this time. All safety measures in place, 1:1 for flight risk
--- NOTE | 2023-06-05 09:36 | PC.NURSE ---
Pt is getting restless, pacing the faye, and attempting to get into the pod, sitter able to redirect patient. This RN got patient coloring pages to attempt to help give her tasks todo
[2023-06-05] MEDS: OLANZapine ODT 10 MG TAB.RAPDIS TRANSLINGU (12:06)
--- NOTE | 2023-06-05 12:12 | PC.NURSE ---
pt increasingly disoriented/agitated at this time. pt speaking incoherently stating that she is here for the little boys with pneumonia. pt continuously pacing back and forth and entering personal space of sitter. pt not easily redirectable at this time. dr. espinal notified/aware. medication administered per provider order. pt waiting to be assessed by outpatient [facility] at this time.
[2023-06-05 14:10] VITALS: BP 106/79; PULSE 85; RESP 16; TEMP 36.6; O2SAT 95
--- NOTE | 2023-06-05 14:21 | PC.NURSE ---
vss and up to date at this time. pt continues to pace the hallway/speaking incoherently. pt still difficult to redirect at this time. pt seen/consulted by psychiatry. plan of care ongoing. 1:1 sitter present.
[2023-06-05] MEDS: Atorvastatin Calcium 20 MG TABLET PO (14:28)
[2023-06-05] MEDS: Memantine HCl 5 MG TABLET PO ×2 (14:28→22:19)
[2023-06-05] MEDS: lisinopriL 10 MG TABLET PO (14:28)
[2023-06-05] MEDS: Levothyroxine Sodium 75 MCG TABLET PO (14:28)
[2023-06-05] MEDS: Sertraline HCL 25 MG TABLET 75 MG PO (14:28)
--- NOTE | 2023-06-05 14:30 | PC.NURSE ---
PO medication administered successfully. pt resting on stretcher calmly at this time. respirations remain even and unlabored. 1:1 sitter present.
--- NOTE | 2023-06-05 14:52 | MHC.CM.ED ---
Received case management consult from Dr Weems. Patient came to the ER on 06/04 due to AMS. Patient has a history of dementia for about 5 years. Has a neurologist in [facility]. Was inpatient at [facility] in May 2022. Work up essentially negative. Care Team assessment completed. Psych consult is pending. T/W spoke with patient's /Invoked HCP, Markus, via telephone at [phone]. Markus has been looking at alternative living arrangements for his since last year's inpatient admission. [facility] has been on-site to hospital today to assess patient to see if they will be able to offer her a bed in their memory care unit. [facility] will be on-site tomorrow, 06/06 to assess patient. Patient was on scheduled Zyprexa at one time. Per provider weaned her off of it, changed the Aricept and Namenda. Markus aware patient will be seen by Zaira, petroleum refinery worker. Continue to monitor for d/c needs.
[2023-06-05] MEDS: Donepezil HCl 10 MG TABLET PO (22:19)
[2023-06-05] MEDS: Donepezil HCl 5 MG TABLET PO (22:19)
[2023-06-05 23:05] VITALS: BP 153/65; PULSE 52; RESP 17; TEMP 37.3; O2SAT 97
--- NOTE | 2023-06-05 23:06 | PC.NURSE ---
Patient brought over from main ED for further evaluation and care. Patient is resting on bed and calm with staff at this time, no s/s of distress noted. Patient complaining of feeling cold and was provided with a warm blanket patient stated oh this is nice. Camera on at bedside.
[2023-06-06 04:42] VITALS: BP 137/55; PULSE 70; RESP 19; TEMP 36.3; O2SAT 97
[2023-06-06] MEDS: Levothyroxine Sodium 75 MCG TABLET PO (05:49)
[2023-06-06] MEDS: Memantine HCl 5 MG TABLET PO ×2 (08:13→20:54)
[2023-06-06] MEDS: Sertraline HCL 25 MG TABLET 75 MG PO (08:13)
[2023-06-06] MEDS: Atorvastatin Calcium 20 MG TABLET PO (08:14)
[2023-06-06] MEDS: lisinopriL 10 MG TABLET PO (08:14)
--- NOTE | 2023-06-06 10:38 | PM.PSYCN ---
History of Present Illness Date of Service: 06/06/23 Chief Complaint: Dementia with agitation Requesting physician: Luz Vaughan Sources of Information: patient interviewed, chart reviewed and crisis/core team assessment reviewed Additional Sources of Information: Message left for Ruben Rai MD [facility] [phone]. Referred to Mesha Augustin who could provide no information and sent to voice mail of AUSTEN Conner. HPI Narrative: 68 yo female, history of dementia for by report the past five years, HLD, Hypothyroidism, UTI with an admission to [facility] in 2022, with reported increase in aggressive symptoms,paranoia, agitation and wandering, precipitating family to pursue consult and assist with a placement for safe living for pt. Symptoms have progressed over the past month with increase in aggression. Pt's reports upon discharge from [facility] in May 2022 she has been seen by [facility] in [place]. Provider stopped Olanzapine. reported he was informed the dosage was too high (5 mg a.m. 10 mg hs). reports Aricept was increased to 15 mg daily, Memantine was decreased to 5 mg daily, Bellsomra was added for sleep and pt has done well until recently. Pt is waiting sceening for placement in the ER. Team reports she is redirectable at this time. requests a medication list for his review. Pt is calm, interactive, confused. She reports she is here to have her teeth whitened. She is oriented to person. Past Psychiatric History: Diagnosed with Alzheimer dementia Medical Evaluation Reviewed: Yes Review of Systems Review of Systems as per ER assessment [facility] Medical History (Updated 06/06/23 @ 11:05 by Alma Kay APRN) Dementia with agitation Psychosis UTI (urinary tract infection) Dementia Family History: Denies Social History: The patient is the oldest of 5 children, her milestones were achieved at expected date H and she was raised by her parents. She attended regular school, she had a good childhood and later she went to college. 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 She got to her for the last 41 years. She has 2 adult children and she has good social support. Trauma History: Denies Diagnostics Vital Signs (24Hr): Vital Signs - 24 hr 06/05/23 14:10 06/05/23 23:05 06/06/23 04:42 Temperature 97.9 F 99.1 F 97.4 F Pulse Rate 85 52 70 Respiratory Rate 16 17 19 Blood Pressure 106/79 153/65 H 137/55 L Pulse Oximetry 95 97 97 Oxygen Delivery Method Room Air Room Air Room Air BMI result Body Mass Index 23.1 Labs 06/04/23 21:41 06/04/23 21:41 Labs: Laboratory Results - last 48 hr 06/04/23 21:41 WBC 8.5 RBC 4.28 Hgb 12.0 Hct 36.6 L MCV 85.5 MCH 28.0 MCHC 32.8 RDW 13.0 Plt Count 244 MPV 12.0 Immature Gran % (Auto) 0.2 Neut % (Auto) 61.1 Lymph % (Auto) 26.8 [place] % (Auto) 7.4 Eos % (Auto) 3.4 Baso % (Auto) 1.1 Lymph # (Auto) 2.3 [place] # (Auto) 0.6 Eos # (Auto) 0.3 Baso # (Auto) 0.1 Abs Immat Gran (auto) 0.02 Absolute Neuts (auto) 5.2 Absolute Nucleated RBC 0.000 Nucleated RBC % (auto) 0.0 Sodium 140 Potassium 3.9 Chloride 109 H Carbon Dioxide 25 Anion Gap 10 L BUN 31 H Creatinine 0.94 Estim Creat Clear Calc 53.6 Estimated GFR 59 Random Glucose 110 Calcium 9.2 Magnesium 2.2 Total Bilirubin 0.2 Direct Bilirubin < 0.2 AST 26 ALT 38 H Alkaline Phosphatase 84 Total Protein 6.7 Albumin 4.0 Lipase 45 TSH 3.15 Urine Color Yellow Urine Appearance Clear Urine pH 5.5 Ur Specific [place] >= 1.030 H Urine Protein Negative Urine Glucose (UA) Negative Urine Ketones Trace Urine Blood Negative Urine Nitrite Negative Ur Leukocyte Esterase Small (1+) H Urine RBC 0-2 Urine WBC 6-10 H Ur Squamous Epith Cells 3-5 Urine Bacteria None Seen Hyaline Casts 0-2 COVID-19 (VIPIN) Negative COVID-19 Clin Com See Note EKG EKG: reviewed EKG Comment: sinus bradycardia, rate 56, no changes since 05/09/2022 QTc 409. Mental Status Exam Mental Status Exam Patient Appearance: Appropriate Patient Orientation: Person Level of Consciousness: Awake, Appropriate and Alert Patient Behavior: Appropriate, Talkative, Cooperative and Good Eye Contact Mood Description: Calm Affect Description: Calm Patient Cognition Impaired: Yes Ability to Follow Directions: Fair Speech Pattern: Clear, Spontaneous Speech and Soft-Spoken Memory Description: Remote Impaired and Episodic Impaired Hallucinations: None Delusions: Not Present Thought Process: Confusion Thought Content: positive for Loose Associations and positive for Disorganized Depressive Symptoms: Increased Irritability (redirectable agitation per team) and Difficulty Concentrating Judgement: Poor Medications Medications Current Medications Atorvastatin Calcium (Atorvastatin Calcium 20 Mg Tablet) 20 mg PO DAILY [facility] Last Admin: 06/06/23 08:14 Dose: 20 mg Donepezil HCl (Donepezil Hcl 5 Mg Tablet) 5 mg PO BEDTIME [facility] Last Admin: 06/05/23 22:19 Dose: 5 mg Donepezil HCl (Donepezil Hcl 10 Mg Tablet) 10 mg PO BEDTIME [facility] Last Admin: 06/05/23 22:19 Dose: 10 mg Levothyroxine Sodium (Levothyroxine Sodium 75 Mcg Tablet) 75 mcg PO DAILY@0600 [facility] Last Admin: 06/06/23 05:49 Dose: 75 mcg Lisinopril (Lisinopril 10 Mg Tablet) 10 mg PO DAILY [facility]; Protocol Last Admin: 06/06/23 08:14 Dose: 10 mg Memantine (Memantine Hcl 5 Mg Tablet) 5 mg PO BID [facility] Last Admin: 06/06/23 08:13 Dose: 5 mg Non-Formulary Medication (Suvorexant [Belsomra]) 10 mg PO BEDTIME [facility] Olanzapine (Olanzapine Odt 10 Mg Tab.Rapdis) 10 mg TRANSLINGU ONCE PRN PRN Reason: anxiety/restlessness Last Admin: 06/04/23 22:21 Dose: 10 mg Sertraline HCl (Sertraline Hcl 25 Mg Tablet) 75 mg PO DAILY [facility] Last Admin: 06/06/23 08:13 Dose: 75 mg Allergies Allergies Allergy/AdvReac Type Severity Reaction Status Date / Time No Known Allergies Allergy Verified 02/01/23 03:42 Assessment & Plan Assessment & Plan (1) Dementia with agitation: Status: Acute Code(s): F03.911 - Unspecified dementia, unspecified severity, with agitation Plan 68 yo female, history of dementia with increasing agitation at home. Family has brought her into the ER for placement for her safety. Since discharge from [facility] in May 2022 she is followed by [facility]. We have spoken with them twice today, Dr. Lopez will try to call back when he has time. I will add his recommendations when he returns our request. Plan: Olanzapine 5 mg bid prn severe agitation B12, Folate, A1C 1125am: Discussed care with Dr. Lopez from [facility]. He suggests Depakote 125 mg bid and Olanzapine prn for severe agitation. If pt is requiring Olanzapine regularly, he encourages us to schedule this. Total time managing care of this patient today ____ minutes. Informed Consent: does not understand
--- NOTE | 2023-06-06 10:51 | PC.NURSE ---
at bedside. Patient ambulates in faye with staff. cooperative.
--- NOTE | 2023-06-06 13:03 | MHC.CM.ED ---
Patient remains in ER overflow. No inpatient psych admission recommended. Clinical updates sent to [facility]. Continue to monitor for d/c needs.
--- NOTE | 2023-06-06 13:20 | PC.NURSE ---
labs obtained per order
[2023-06-06 13:51] LABS: Estimated Average Glucose 108 mg/dL; Hemoglobin A1c % 5.4 % (<6.0)
[2023-06-06 14:00] VITALS: BP 107/64; PULSE 110; RESP 17; TEMP 36.6; O2SAT 94
[2023-06-06 14:28] LABS: Folate 5.6 ng/mL (> or = 4.0); Vitamin B12 806 pg/mL (200-900)
[2023-06-06] MEDS: OLANZapine 5 MG TABLET PO ×2 (15:18→16:23)
--- NOTE | 2023-06-06 17:23 | PC.NURSE ---
assumed care of pt at 1500, pt noted to be increasing agitation, not redirectable, wandering unit. PRN medication admin per MAR with little to no effect, pt becoming aggressive and trying to hit staff. provider and clinic charge nurse notified, patient observer at bedside for companionship and safety. occupational medicine specialist per MAR, effectiveness pending at this time. pt assisted to bathroom, continent x2. pt assisted with blade care and back in bed, still agitated, hallucinating, talking in 3rd person to people not here. respirations even and unlabored, speech clear, offering no complaints, safety precautions remain in place.
[2023-06-06] MEDS: LORazepam 1 MG TABLET 2 MG PO (18:58)
[2023-06-06] MEDS: Donepezil HCl 5 MG TABLET PO (20:54)
[2023-06-06] MEDS: Divalproex Sodium 250 MG TABLET.DR 125 MG PO (20:54)
[2023-06-06] MEDS: Donepezil HCl 10 MG TABLET PO (20:54)
[2023-06-06 20:56] VITALS: BP 103/53; PULSE 86; RESP 16; TEMP 36.5; O2SAT 97
--- NOTE | 2023-06-06 22:01 | PC.NURSE ---
Assumed care of pt at 19:00: Pt Alert to self only at this time. VSS, breathing non-labored, afebrile. Pt comfortable in bed at this time, cooperative with meds taken with derik per patient preference. call rich within reach. 1:[address] for safety d/t confusion/agitation and elopement risk. Will cont with plan of care, safety precautions remain in place.
[2023-06-07] MEDS: OLANZapine 5 MG TABLET PO ×2 (04:04→15:09)
[2023-06-07 05:55] VITALS: BP 100/60; PULSE 54; RESP 19; TEMP 36.4; O2SAT 96
[2023-06-07] MEDS: Sertraline HCL 25 MG TABLET 75 MG PO (09:36)
[2023-06-07] MEDS: Memantine HCl 5 MG TABLET PO ×2 (09:36→20:32)
[2023-06-07] MEDS: Divalproex Sodium 250 MG TABLET.DR 125 MG PO ×2 (09:37→20:31)
[2023-06-07] MEDS: lisinopriL 10 MG TABLET PO (09:37)
[2023-06-07] MEDS: Atorvastatin Calcium 20 MG TABLET PO (09:37)
[2023-06-07 13:58] VITALS: BP 116/72; PULSE 68; RESP 17; TEMP 36.6; O2SAT 98
[2023-06-07] MEDS: LORazepam 1 MG TABLET 2 MG PO (17:47)
[2023-06-07] MEDS: diphenhydrAMINE HCL 25 MG CAPSULE 50 MG PO (17:47)
[2023-06-07] MEDS: HaloperidoL 5 MG TABLET PO (17:47)
--- NOTE | 2023-06-07 17:49 | PC.NURSE ---
Pt alert to self only. Constantly pacing around unit. At ~1500 pt began getting agitated, prn zyprexa given with little to no effect. At ~1745 CAROLE Peters paged as pt unable to be redirected and becoming aggressive with staff. Medicated per MAR with ativan, haldol and benadryl. awaiting effect
[2023-06-07 19:57] VITALS: BP 125/66; PULSE 61; RESP 16; TEMP 36.7; O2SAT 97
[2023-06-07] MEDS: Donepezil HCl 10 MG TABLET PO (20:32)
[2023-06-07] MEDS: Donepezil HCl 5 MG TABLET PO (20:32)
--- NOTE | 2023-06-07 23:51 | MHC.EDTECH ---
Patient dry and is sleeping .
[2023-06-08 05:24] VITALS: BP 129/64; PULSE 51; RESP 14; TEMP 36.2; O2SAT 97
[2023-06-08] MEDS: Levothyroxine Sodium 75 MCG TABLET PO (06:13)
--- NOTE | 2023-06-08 06:15 | MHC.EDTECH ---
this tech and nurse on duty attempted to toilet pt. she refused, but was dry.
--- NOTE | 2023-06-08 07:12 | PC.NURSE ---
Assumed care of patient at 19:00 on 06/07. Patient seen in ED overflow. Pt is A&Ox1 to self only, hx of dementia. Given scheduled meds with +effect; patient has remained calm and observed resting in bed on hourly rounds and continues with 1:1 constant backend java developer in place as ordered. Tolerated po meds without issue. No n/v. Breathing is even and unlabored without distress on RA. VSS. Incontinence care provided. Bed alarm on and safety measures in place due to falls and flight risk. Handoff report given at 06:45.
[2023-06-08] MEDS: Divalproex Sodium 250 MG TABLET.DR 125 MG PO ×2 (09:44→19:58)
[2023-06-08] MEDS: Atorvastatin Calcium 20 MG TABLET PO (09:45)
[2023-06-08] MEDS: lisinopriL 10 MG TABLET PO (09:46)
[2023-06-08 09:47] VITALS: BP 114/65; PULSE 55; RESP 16; TEMP 36.5; O2SAT 99
[2023-06-08] MEDS: Memantine HCl 5 MG TABLET PO ×2 (10:10→20:49)
[2023-06-08] MEDS: Sertraline HCL 25 MG TABLET 75 MG PO (10:10)
--- NOTE | 2023-06-08 10:31 | PC.NURSE ---
assumed care of pt at 0700. pt woke up and ate most of breakfast tray independently. pt took po meds whole with apple juice and tolerated well. pt resting quietly in bed, staring straight ahead and mouthing words to self. rr even/unlabored. plan of care ongoing.
--- NOTE | 2023-06-08 11:19 | PC.NURSE ---
pt washed up and oob to recliner.
[2023-06-08 14:00] VITALS: BP 98/66; PULSE 90; RESP 16; TEMP 36.9; O2SAT 97
--- NOTE | 2023-06-08 14:20 | PC.NURSE ---
pt BP noted to be low via automated BP cuff. manual BP taken, 98/66. pt did receive BP medication this AM. CAROLE Rosas notified of pt status. pt is alert sitting up in recliner and able to ambulate to bathroom with standby assist. wc BP, plan of care ongoing. pt [id number] visiting at bedside.
--- NOTE | 2023-06-08 14:49 | PC.NURSE ---
Addendum entered by Lily Claire RN 06/08/23 15:21: pt became agitated once arrived at bedside. pt now pacing hallways, walking into other pts' areas. attempting to redirect pt. pt stated she gets like this when he visits and he decided to leave. Original Note: pt at bedside visiting with pt.
--- NOTE | 2023-06-08 15:20 | PC.NURSE ---
attempted to retake pt BP manually, pt is agitated and moving around too much to get accurate reading. will reattempt once pt is calmed down.
--- NOTE | 2023-06-08 15:23 | PC.NURSE ---
pt now with 1:1 sitter.
[2023-06-08 15:47] VITALS: BP 100/80
[2023-06-08] MEDS: OLANZapine 5 MG TABLET PO (17:28)
--- NOTE | 2023-06-08 17:30 | PC.NURSE ---
pt becoming increasingly agitated. 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 pt medicated per mar with prn zyprexa and redirected with questions. pt ambulated and put self back in bed. 1:1 sitter at bedside for companionship and safety. wctm medication effects. plan of care ongoing.
--- NOTE | 2023-06-08 18:28 | PC.NURSE ---
pt oob pacing unit, agitated again. still looking for her tap shoes. pt ambulated to bathroom. redirected back to bed with questions to take pt mind off of tap shoes. pt now resting quietly, rr even/unlabored. 1:1 sitter at bedside.
[2023-06-08] MEDS: Donepezil HCl 10 MG TABLET PO (19:58)
[2023-06-08 20:16] VITALS: BP 113/62; PULSE 69; RESP 14; TEMP 37.1; O2SAT 97
[2023-06-08] MEDS: Donepezil HCl 5 MG TABLET PO (20:49)
--- NOTE | 2023-06-08 21:29 | PC.NURSE ---
Pt was wandering the unit very confused trying to enter other pts room redirected several times 1:1 sitter with pt.Pt took all her pm meds and is resting quietly in bed at present time.
[2023-06-09] MEDS: Levothyroxine Sodium 75 MCG TABLET PO (05:38)
[2023-06-09 06:00] VITALS: BP 133/72; PULSE 69; RESP 16; TEMP 36.3; O2SAT 99
[2023-06-09] MEDS: Atorvastatin Calcium 20 MG TABLET PO (07:54)
[2023-06-09] MEDS: Divalproex Sodium 250 MG TABLET.DR 125 MG PO ×2 (07:54→20:26)
[2023-06-09] MEDS: Sertraline HCL 25 MG TABLET 75 MG PO (07:54)
[2023-06-09] MEDS: OLANZapine 5 MG TABLET PO ×2 (07:54→19:30)
[2023-06-09] MEDS: lisinopriL 10 MG TABLET PO (07:55)
--- NOTE | 2023-06-09 08:11 | PC.NURSE ---
pt up, entering other pts living spaces, placing hands on staff when verbally redirected. pulling her sitters hair. TC sent out to nursing sup for assistance in staffing. PO medications offered. pt speaking incoherently. eventually able to redirect to her bed, sitting up eating breakfast. pt at this point in time calm, eating breakfast, accepting PO medications including PRN
--- NOTE | 2023-06-09 09:48 | PC.NURSE ---
pt now resting in bed, good effect following PRN medication administration per JUL. pt in NAD, rr even, unlabored.
[2023-06-09] MEDS: Memantine HCl 5 MG TABLET PO ×2 (11:07→20:26)
--- NOTE | 2023-06-09 11:37 | PC.NURSE ---
pts at bedside to visit with pt
--- NOTE | 2023-06-09 12:03 | PC.NURSE ---
pt able to make needs known that she needed to use the BR. up to BR with stand-by assist, pt had BM
[2023-06-09 13:57] VITALS: BP 107/68; PULSE 98; RESP 17; TEMP 36.4; O2SAT 97
--- NOTE | 2023-06-09 18:30 | PC.NURSE ---
pt has been focused on entering the room next to her reporting that the male pt in that room is her grandfather, redirected as so. pt occasionally irritable with this information that the pt next to her is not her grandfather. at other times pt accepting of this information and will return to her own area.
--- NOTE | 2023-06-09 19:30 | PC.NURSE ---
Pt alert and confused. Restless, pacing, and walking into other pts area/space. Requires multiple reminders and re direction to return to the bedside. Medicated as per MAR with little effect as pt continues to pace and is confused about surroundings. nutrition manager aware. 1:1 sitter with pt. Monitoring ongoing.
[2023-06-09 20:02] VITALS: BP 111/93; PULSE 81; RESP 16; TEMP 36.3; O2SAT 97
[2023-06-09] MEDS: Donepezil HCl 10 MG TABLET PO (20:23)
[2023-06-09] MEDS: Donepezil HCl 5 MG TABLET PO (20:26)
--- NOTE | 2023-06-09 22:37 | PC.NURSE ---
Pt sleeping at the bedside. No apparent distress noted. Breaths are even regular and unlabored with equal chest rises. 1:1 sitter at the bedside. Bed alarm in place. Monitoring is ongoing.
[2023-06-10 03:43] VITALS: BP 131/52; PULSE 56; RESP 16; TEMP 36.3; O2SAT 97
[2023-06-10] MEDS: Levothyroxine Sodium 75 MCG TABLET PO (08:00)
--- NOTE | 2023-06-10 08:30 | MHC.EDTECH ---
patient was washed up with complete bed change and teeth brushing was done, reposition on to the recliner.
--- NOTE | 2023-06-10 09:01 | MHC.CM.ED ---
Patient remains in ER overflow. Clinical updates sent to [facility]. Continue to monitor for d/c needs.
[2023-06-10] MEDS: lisinopriL 10 MG TABLET PO (09:15)
[2023-06-10] MEDS: Divalproex Sodium 250 MG TABLET.DR 125 MG PO (09:15)
[2023-06-10] MEDS: Atorvastatin Calcium 20 MG TABLET PO (09:16)
[2023-06-10] MEDS: Memantine HCl 5 MG TABLET PO ×2 (09:16→20:13)
[2023-06-10] MEDS: Sertraline HCL 25 MG TABLET 75 MG PO (10:07)
--- NOTE | 2023-06-10 10:10 | PM.PSYCN ---
History of Present Illness Date of Service: 06/10/2023 Chief Complaint: Dementia with agitation Reason for Consult: f/u Discussed with referring provider: Yes Sources of Information: patient interviewed, chart reviewed and crisis/core team assessment reviewed HPI Narrative: Interim hx: pt appears slightly calmer, but continues to wonder, intrusive with peers, at times irritable when redirected. It appears she sleeps for the most part. She is taking medications as prescribed. Pt tells this field underwriter she is going home, that her car is outside. She is not oriented to place, situation, month or year. Her attention is poor Past Psychiatric History: Diagnosed with Alzheimer dementia [facility] Medical History (Updated 06/10/23 @ 10:19 by Zaira Munoz) Dementia with agitation Psychosis UTI (urinary tract infection) Dementia Family History: Denies Social History: The patient is the oldest of 5 children, her milestones were achieved at expected date H and she was raised by her parents. She attended regular school, she had a good childhood and later she went to college. 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 She got to her for the last 41 years. She has 2 adult children and she has good social support. Trauma History: Denies Diagnostics Vital Signs (24Hr): Vital Signs - 24 hr 06/09/23 13:57 06/09/23 20:02 06/10/23 03:43 Temperature 97.6 F 97.3 F 97.4 F Pulse Rate 98 81 56 Respiratory Rate 17 16 16 Blood Pressure 107/68 111/93 H 131/52 L Pulse Oximetry 97 97 97 Oxygen Delivery Method Room Air Room Air Room Air BMI result Body Mass Index 23.1 Labs 06/04/23 21:41 06/04/23 21:41 Mental Status Exam Mental Status Exam Narrative: Appearance: wearing hospital gown, fair hygiene, in NAD Psychomotor: pacing, going into other pts room, intrusive at times, difficult to redirect Speech: mostly clear, regular rate/rhythm/volume, spontaneous TP:goal oriented/confabulating- going home or looking for [place] TC: confused, looking for someone Mood: good Affect: guarded, irritable SI: none HI: none VH/AH: none Delusions: mostly confabulation Insight/judgment: severely impaired x 2. Memory/cog: alert, only oriented to self. severe cognitive impairement. Medications Medications Current Medications Atorvastatin Calcium (Atorvastatin Calcium 20 Mg Tablet) 20 mg PO DAILY [facility] Last Admin: 06/10/23 09:16 Dose: 20 mg Clonazepam (Clonazepam 0.5 Mg Tablet) 0.5 mg PO BID [facility] Divalproex Sodium (Divalproex Sodium 250 Mg Tablet.) 125 mg PO BID [facility] Last Admin: 06/10/23 09:15 Dose: 125 mg Donepezil HCl (Donepezil Hcl 10 Mg Tablet) 10 mg PO BEDTIME [facility] Last Admin: 06/09/23 20:23 Dose: 10 mg Levothyroxine Sodium (Levothyroxine Sodium 75 Mcg Tablet) 75 mcg PO DAILY@0600 [facility] Last Admin: 06/10/23 08:00 Dose: 75 mcg Lisinopril (Lisinopril 10 Mg Tablet) 10 mg PO DAILY [facility]; Protocol Last Admin: 06/10/23 09:15 Dose: 10 mg Memantine (Memantine Hcl 5 Mg Tablet) 5 mg PO BID [facility] Last Admin: 06/10/23 09:16 Dose: 5 mg Non-Formulary Med ( Suvorexant [Belsomra ] 10 Mg Tablet) 10 mg PO BEDTIME [facility] Last Admin: 06/09/23 20:27 Dose: 10 mg Quetiapine Fumarate (Quetiapine Fumarate 50 Mg Tablet) 50 mg PO TID [facility] Sertraline HCl (Sertraline Hcl 25 Mg Tablet) 75 mg PO DAILY [facility] Last Admin: 06/10/23 10:07 Dose: 75 mg Allergies Allergies Allergy/AdvReac Type Severity Reaction Status Date / Time No Known Allergies Allergy Verified 02/01/23 03:42 Assessment & Plan Assessment & Plan (1) Major neurocognitive disorder: Status: Acute Code(s): F03.90 - Unspecified dementia, unspecified severity, without behavioral disturbance, psychotic disturbance, mood disturbance, and anxiety Plan Ms. Ewing is a 68 year-old woman with advanced dementia. She is awaiting placement. Pt was started on depakote 125mg po BID and olanzapine prn. Pt appears calmer, still intrusive and wondering in the ED. PLAN 1. will increase depakote for impulsive/combative behaviors to 250mg po BID, will check depakote and ammonia level tomorrow. 2. will switch olanzapine to seroquel 50mg po TID. 3. Will add clonazepam 0.5mg po BID--> monitor oversedation, gait, hold if affecting mentation and gait. Total time managing care of this patient today ____ minutes.
[2023-06-10] MEDS: clonazePAM 0.5 MG TABLET PO ×2 (10:50→20:08)
[2023-06-10] MEDS: QUEtiapine Fumarate 50 MG TABLET PO ×3 (10:50→20:08)
--- NOTE | 2023-06-10 12:36 | PC.NURSE ---
Assumed care of this pt at 1115. Pt walking around with staff at the time of assuming care. Lunch given, pt's is at her bedside at this time folding towels and washcloths.
[2023-06-10 14:00] VITALS: BP 114/68; PULSE 67; RESP 20; TEMP 36.3; O2SAT 99
[2023-06-10] MEDS: OLANZapine ODT 10 MG TAB.RAPDIS TRANSLINGU (18:31)
--- NOTE | 2023-06-10 18:38 | PC.NURSE ---
Pt pacing, self dialoguing and speaking to various objects on the unit. Snack and warm blanket given with some positive effect. Pt made several attempts to enter other pt's rooms, she got agitated and aggressive when redirected by staff. Pt was offered and given towels to fold but she walked away. Pt made attempts to hit staff during redirection. PRN med given as documented, effectiveness pending.
--- NOTE | 2023-06-10 19:32 | PC.NURSE ---
Patient directed to her room by this RN, patient requesting to sit in a recliner chair, warm blanket provided.
[2023-06-10] MEDS: Divalproex Sodium 250 MG TABLET.DR PO (20:08)
[2023-06-10] MEDS: Donepezil HCl 10 MG TABLET PO (20:08)
[2023-06-10 20:35] VITALS: BP 128/53; PULSE 61; RESP 20; TEMP 36.6; O2SAT 97
[2023-06-11 08:07] VITALS: BP 126/65; PULSE 52; RESP 12; TEMP 36.3; O2SAT 97
[2023-06-11] MEDS: clonazePAM 0.5 MG TABLET PO ×2 (10:32→21:15)
[2023-06-11] MEDS: Divalproex Sodium 250 MG TABLET.DR PO ×2 (10:33→21:10)
[2023-06-11] MEDS: Memantine HCl 5 MG TABLET PO ×2 (10:33→21:10)
[2023-06-11] MEDS: Sertraline HCL 25 MG TABLET 75 MG PO (10:33)
[2023-06-11] MEDS: QUEtiapine Fumarate 50 MG TABLET PO ×3 (10:34→21:10)
[2023-06-11] MEDS: Atorvastatin Calcium 20 MG TABLET PO (10:34)
[2023-06-11] MEDS: lisinopriL 10 MG TABLET PO (10:34)
--- NOTE | 2023-06-11 11:00 | PC.NURSE ---
Pt's and neighbor at bedside. Meds given as documented, pt ate 100% of breakfast. Pt laying in bed quietly.
--- NOTE | 2023-06-11 13:57 | PC.NURSE ---
[facility] is at the pt's bedside doing an assessment at this time.
[2023-06-11 14:00] VITALS: PULSE 64; RESP 12; TEMP 36.6; O2SAT 95
[2023-06-11 14:29] LABS: Ammonia 17 umol/L (13-55)
[2023-06-11 14:35] LABS: Valproate 38.9 mcg/mL (50.0-100.0)
--- NOTE | 2023-06-11 16:00 | PC.NURSE ---
Pt given a word puzzle to do and washcloths/towels to fold, she showed no interest.
--- NOTE | 2023-06-11 16:08 | MHC.CM.ED ---
Patient remains in ER overflow. Jaylyn RN from [facility] on-site to meet with patient. Page will speak to [facility] and get back to CM if they can offer a bed. Continue to monitor for d/c needs.
--- NOTE | 2023-06-11 19:04 | MHC.EDTECH ---
daughter is walking patient around.
--- NOTE | 2023-06-11 19:27 | MHC.CM.ED ---
RN from [facility] in to see patient. Will get back to CM tomorrow if they can offer a bed. CM spoke with , Jim ([phone]). He tells CM that his first choice is [facility]. States the facility has offered him placement for his , but they are waiting for a resident to move. They are expecting that to happen next week. CM explained that if The [facility] offers a bed and it's ready, then he does not want to lose it, especially if [facility] does not have a open bed. Jim is aware, but feels that [facility] is closer, his will have more visitors, and that they honestly will have a placement for his at [facility]. CM will follow for discharge needs.
[2023-06-11 20:01] VITALS: BP 102/60; PULSE 81; RESP 18; TEMP 36.9; O2SAT 99
[2023-06-11 21:11] VITALS: BP 98/58; PULSE 81; RESP 18; TEMP 36.9; O2SAT 99
[2023-06-11] MEDS: Donepezil HCl 10 MG TABLET PO (21:11)
--- NOTE | 2023-06-12 01:51 | PC.NURSE ---
Took report from off-going RN at 2300 hours. Pt is a 68 y/o female who came here from home on Jun 04. CC on arrival was increased agression/agitation, increased confusion, and hallucinations. Pt is A & O X 1, history or dementia. is the decision-maker. Independent with meals, takes pills whole ok with water. Pt is calm and cooperative, verbalizes needs appropriately. No acute distress observed and skin is W/P/D. Independent with ambulation, but pt is an elopement risk. Plan is possible discharge to long-term care facility. Will continue to monitor.
--- NOTE | 2023-06-12 02:59 | PC.NURSE ---
Pt is sleeping, appears comfortable. No acute distress noted. Changes positions in bed as desired. Easily arousable with verbal stimuli. Pt is an elopement risk. Pending possible dishcarge to long-term care facility. Will continue to monitor.
--- NOTE | 2023-06-12 05:07 | PC.NURSE ---
Pt is sleeping in bed, appears comfortable. No acute distress observed. RR is regular rate and pattern. Changes position in dependently as desired. Will continue to monitor.
[2023-06-12 06:00] VITALS: BP 95/63; PULSE 64; RESP 18; TEMP 36.2; O2SAT 98
[2023-06-12] MEDS: Sertraline HCL 25 MG TABLET 75 MG PO (08:13)
[2023-06-12] MEDS: Divalproex Sodium 250 MG TABLET.DR PO ×2 (08:13→20:00)
[2023-06-12] MEDS: Atorvastatin Calcium 20 MG TABLET PO (08:13)
[2023-06-12] MEDS: clonazePAM 0.5 MG TABLET PO ×2 (08:13→20:00)
[2023-06-12] MEDS: lisinopriL 10 MG TABLET PO (08:13)
[2023-06-12] MEDS: Memantine HCl 5 MG TABLET PO ×2 (08:13→20:00)
[2023-06-12] MEDS: Levothyroxine Sodium 75 MCG TABLET PO (08:14)
[2023-06-12] MEDS: QUEtiapine Fumarate 50 MG TABLET PO ×4 (08:14→20:00)
[2023-06-12 13:54] VITALS: BP 116/70; PULSE 73; RESP 18; TEMP 36.2; O2SAT 98
--- NOTE | 2023-06-12 15:57 | PC.NURSE ---
Patient wandering around unit following internal stimulation looking for something her father said she could have.
[2023-06-12] MEDS: Donepezil HCl 10 MG TABLET PO (20:00)
--- NOTE | 2023-06-12 22:06 | PC.NURSE ---
Patient attempting to leave unit, grabbing and pushing staff when redirection is attempted. Patient was medicated with her HS medication and security came to unit to help redirect patient. Patient eventually became more calm and laid down in her bed. Patient is currently laying in bed with eyes closed respirations even, no s/s of distress noted.
[2023-06-12 22:30] VITALS: RESP 16
--- NOTE | 2023-06-12 22:30 | PC.NURSE ---
Unable to get full set of vitals on patient due to aggressive behavior.
[2023-06-13 05:28] VITALS: BP 120/68; PULSE 75; RESP 16; TEMP 36.4; O2SAT 98
[2023-06-13] MEDS: Levothyroxine Sodium 75 MCG TABLET PO (06:33)
[2023-06-13] MEDS: lisinopriL 10 MG TABLET PO (08:12)
[2023-06-13] MEDS: clonazePAM 0.5 MG TABLET PO ×2 (08:12→20:30)
[2023-06-13] MEDS: Atorvastatin Calcium 20 MG TABLET PO (08:12)
[2023-06-13] MEDS: Memantine HCl 5 MG TABLET PO ×2 (08:12→20:28)
[2023-06-13] MEDS: Divalproex Sodium 250 MG TABLET.DR PO (08:12)
[2023-06-13] MEDS: Sertraline HCL 25 MG TABLET 75 MG PO (08:12)
[2023-06-13] MEDS: QUEtiapine Fumarate 50 MG TABLET PO (08:12)
--- NOTE | 2023-06-13 09:33 | P.CNPS_ITS ---
History of Present Illness Date of Service: 06/13/2023 Chief Complaint: Dementia with agitation Reason for Consult: f/u Discussed with referring provider: Yes Sources of Information: patient interviewed, chart reviewed and crisis/core team assessment reviewed HPI Narrative: Interim hx: pt continued to pace, difficult to redirect at times yesterday. Increased seroquel to 100mg po TID. Pt appears calmer, alert and not over sedated her attention appears slightly better, able to answer few questions without looking through the writer technical publications. will continue to monitor sedation, QTC, ambulation (risk for fall) Past Psychiatric History: Diagnosed with Alzheimer dementia Review of Systems Review of Systems as per ER assessment [facility] Medical History (Updated 06/10/23 @ 10:19 by Zaira Munoz) Dementia with agitation Psychosis UTI (urinary tract infection) Dementia Family History: Denies Social History: The patient is the oldest of 5 children, her milestones were achieved at expected date H and she was raised by her parents. She attended regular school, she had a good childhood and later she went to college. 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 She got to her for the last 41 years. She has 2 adult children and she has good social support. Trauma History: Denies Diagnostics Vital Signs (24Hr): Vital Signs - 24 hr 06/12/23 13:54 06/12/23 22:30 06/13/23 05:28 Temperature 97.1 F 97.5 F Pulse Rate 73 75 Respiratory Rate 18 16 16 Blood Pressure 116/70 120/68 Pulse Oximetry 98 98 Oxygen Delivery Method Room Air Room Air BMI result Body Mass Index 23.1 Labs 06/04/23 21:41 06/04/23 21:41 Labs: Laboratory Results - last 48 hr 06/11/23 14:13 Ammonia 17 Valproic Acid 38.9 L Mental Status Exam Mental Status Exam Narrative: Appearance: wearing hospital gown, fair hygiene, in NAD Psychomotor: sitting in bed Speech: mostly clear, regular rate/rhythm/volume, spontaneous TP:no derailment, single word answer TC: confused, looking for someone Mood: good Affect: constricted SI: none HI: none VH/AH: none Delusions: mostly confabulation Insight/judgment: severely impaired x 2. Memory/cog: alert, only oriented to self. severe cognitive impairment. Medications Medications Current Medications Atorvastatin Calcium (Atorvastatin Calcium 20 Mg Tablet) 20 mg PO DAILY [facility] Last Admin: 06/13/23 08:12 Dose: 20 mg Clonazepam (Clonazepam 0.5 Mg Tablet) 0.5 mg PO BID [facility] Last Admin: 06/13/23 08:12 Dose: 0.5 mg Divalproex Sodium (Divalproex Sodium 250 Mg Tablet.) 250 mg PO BID [facility] Last Admin: 06/13/23 08:12 Dose: 250 mg Donepezil HCl (Donepezil Hcl 10 Mg Tablet) 10 mg PO BEDTIME [facility] Last Admin: 06/12/23 20:00 Dose: 10 mg Levothyroxine Sodium (Levothyroxine Sodium 75 Mcg Tablet) 75 mcg PO DAILY@0600 [facility] Last Admin: 06/13/23 06:33 Dose: 75 mcg Lisinopril (Lisinopril 10 Mg Tablet) 10 mg PO DAILY [facility]; Protocol Last Admin: 06/13/23 08:12 Dose: 10 mg Memantine (Memantine Hcl 5 Mg Tablet) 5 mg PO BID [facility] Last Admin: 06/13/23 08:12 Dose: 5 mg Non-Formulary Med ( Suvorexant [Belsomra ] 10 Mg Tablet) 10 mg PO BEDTIME [facility] Last Admin: 06/12/23 20:00 Dose: 10 mg Quetiapine Fumarate (Quetiapine Fumarate 50 Mg Tablet) 50 mg PO TID [facility] Last Admin: 06/13/23 08:12 Dose: 50 mg Sertraline HCl (Sertraline Hcl 25 Mg Tablet) 75 mg PO DAILY [facility] Last Admin: 06/13/23 08:12 Dose: 75 mg Allergies Allergies Allergy/AdvReac Type Severity Reaction Status Date / Time No Known Allergies Allergy Verified 02/01/23 03:42 Assessment & Plan Assessment & Plan (1) Major neurocognitive disorder: Status: Acute Code(s): F03.90 - Unspecified dementia, unspecified severity, without behavioral disturbance, psychotic disturbance, mood disturbance, and anxiety Plan Ms. Ewing is a 68 year-old woman with advanced dementia. She is awaiting placement. Pt was started on depakote 125mg po BID and olanzapine prn. Pt appears calmer, still intrusive and wondering in the ED. PLAN 06/13 increase seroquel to 100mg po TID due to pt continuing to present restless, pacing, today appears much calmer, attention somewhat improved not looking trough the writer technical publications when asked questions. D/C belsomra to avoid over sedation or parasomnias. Total time managing care of this patient today ____ minutes.
--- NOTE | 2023-06-13 13:54 | MHC.CM.ED ---
Patient remains in ER overflow. Per Concepción of [facility], telephone conference planned for 5pm with Jaylyn Aparicio RN and Concepción. Spoke with Jo at [facility]. They do have an apartment for the patient but they're waiting for 1 resident to move out. They're hoping the apartment will be available next week. Continue to monitor for d/c needs.
[2023-06-13 14:00] VITALS: BP 93/51; PULSE 68; RESP 20; TEMP 36.8; O2SAT 99
[2023-06-13] MEDS: QUEtiapine Fumarate 100 MG TABLET PO ×2 (14:38→20:29)
--- NOTE | 2023-06-13 17:26 | PC.NURSE ---
assumed care of pt at 1555, pt pacing around unit w pt observer, some difficulty redirecting pt, observer attempting to get pt to join in w activities colouring/folding laundry. pt grabbing at other pt belongings that are not hers, entering other pt rooms. focused on stolen gold watch and looking for watch around overflow unit. no watch with pt on this RN arrival onto unit. pt ambulating around unit w steady gait.
[2023-06-13] MEDS: Divalproex Sodium Sprinkles 125 MG CAP.DR.SPR 500 MG PO (20:28)
[2023-06-13] MEDS: Donepezil HCl 10 MG TABLET PO (20:30)
[2023-06-13 22:00] VITALS: BP 93/50; PULSE 69; RESP 18; TEMP 36.8; O2SAT 96
--- NOTE | 2023-06-13 22:48 | PC.NURSE ---
pt medicated per MAR - meds taken whole w water, hypotensive, other vss, resting quietly in bed w eyes closed.
--- NOTE | 2023-06-14 03:12 | PC.NURSE ---
Assumed care of pt at 23:30. Pt AxOx1, can get easily agitated/restless. 1:1 sitter at bedside due to behavior and flight risk on unit. Pt is resting quietly in bed in lowest position. Report of low BP from previous RN, will monitor pt's BP, otherwise rest of vital signs are stable. Call rich within reach of pt.
[2023-06-14] MEDS: Levothyroxine Sodium 75 MCG TABLET PO (05:56)
[2023-06-14 06:00] VITALS: BP 97/55; PULSE 58; RESP 16; TEMP 36.6; O2SAT 97
--- NOTE | 2023-06-14 08:35 | PC.NURSE ---
PT IS A/O X 1. NO SOB/ARACELIS NOTED SPEAKS IN FULL SENTENCES. PT DENIES ANY PAIN/DISC. NO EDEMA NOTED. PT IS A FLIGHT RISK AND CONTINUES TO HAVE A 1:1 SITTER AT BEDSIDE. PT AMB (I) GAIT STEADY IN HALLWAY. PT TAKES MEDS WHOLE WITH WATER. PT HAS BEEN RE-DIRECTABLE SO FAR THIS AM. WILL CONTINUE TO MONITOR.
[2023-06-14] MEDS: Sertraline HCL 25 MG TABLET 75 MG PO (08:48)
[2023-06-14] MEDS: Divalproex Sodium Sprinkles 125 MG CAP.DR.SPR 500 MG PO ×2 (08:48→20:26)
[2023-06-14] MEDS: Memantine HCl 5 MG TABLET PO ×2 (08:48→20:26)
[2023-06-14] MEDS: QUEtiapine Fumarate 100 MG TABLET PO ×3 (08:48→20:26)
[2023-06-14] MEDS: Atorvastatin Calcium 20 MG TABLET PO (08:48)
[2023-06-14] MEDS: clonazePAM 0.5 MG TABLET PO ×2 (08:49→20:26)
[2023-06-14] MEDS: lisinopriL 10 MG TABLET PO (08:51)
[2023-06-14 08:53] VITALS: BP 98/63; PULSE 76; RESP 16; TEMP 36.1; O2SAT 99
--- NOTE | 2023-06-14 09:23 | MHC.CM.ED ---
CM RECEIVED A CALL FROM OFE AT THE [facility] SHE REPORTS THEY HAVE DONE THEIR ASSESSMENT AND CAN OFFER THE PT A ROOM THERE, HOWEVER THE IS CONCERNED WITH THEIR REQUESTS SHE REPORTS BECAUSE THE PT MAY BE AN ELOPEMENT RISK AND THEY HAVE LESS STAFF AT NIGHT, THEY WOULD REQUIRE PT HAVE A 1:1 AT NIGHT JUST FOR THE TRANSITION SHE SAYS SHE WILL BE CALLING PTS THIS MORNING TO DISCUSS IT FURTHER, BUT THE LAST THEY SPOKE, HE WAS NOT HAPPY WITH THAT PLAN SHE WILL UPDATE CM ONCE SHE SPEAKS TO THE IF HE AGREES, THEY WOULD BE ABLE TO TAKE PT SATURDAY
--- NOTE | 2023-06-14 10:45 | PC.NURSE ---
PT'S IS AT BEDSIDE.
--- NOTE | 2023-06-14 10:45 | MHC.EDTECH ---
pt refused to get washed up in the bathroom, even with a setup made for her. Pt tried pushing me. Pt is now sitting in the recliner, playing cards. is present.
[2023-06-14 11:21] VITALS: BP 100/59; PULSE 82; RESP 16; TEMP 36.4; O2SAT 97
--- NOTE | 2023-06-14 11:44 | PC.NURSE ---
PT WAS PUT BTB. PT'S HAS LEFT THE BEDSIDE.
--- NOTE | 2023-06-14 13:08 | MHC.EDTECH ---
Pt ate 100% of her breakfast. 480cc of fluids. Pt did need some cueing to sit down and eat.
[2023-06-14] MEDS: Acetaminophen 325 MG TABLET 650 MG PO (13:33)
--- NOTE | 2023-06-14 13:37 | PC.NURSE ---
PT C/O BACK PAIN, MED X 1 WITH APAP 650MG PO. PT CONTINUES TO AMB (I) IN HALLWAY WITH SITTER
[2023-06-14 14:00] VITALS: BP 95/50; PULSE 69; RESP 18; TEMP 37.1; O2SAT 96
--- NOTE | 2023-06-14 14:10 | PC.NURSE ---
PT BTB, RESP EVEN AND UNLABORED.
--- NOTE | 2023-06-14 14:49 | PC.NURSE ---
PT IS AWAKE AND AMB(I) GAIT STEADY WITH 1:1 SITTER.
--- NOTE | 2023-06-14 16:40 | MHC.EDTECH ---
pt is wandering around the unit with the sitter present.
--- NOTE | 2023-06-14 19:55 | PC.NURSE ---
This RN took over pt care @ 1900. Pt pacing around unit coming behind the nurses station. Attempting to get into other beds. Pt went into the restroom and locked the door. Pt advised she could not lock the door though it could be closed. Pt refusing to open the door. Tech able to unlock the door. Pt redirected into bed. Plan of care ongoing.
[2023-06-14] MEDS: Donepezil HCl 10 MG TABLET PO (20:26)
--- NOTE | 2023-06-14 20:30 | PC.NURSE ---
Pt medicated per jul. Plan of care ongoing.
--- NOTE | 2023-06-14 21:05 | PC.NURSE ---
Pt out of bed, pacing the unit, attempting to leave unit and get into other beds. Pt remains on 1-1 Plan of care ongoing.
[2023-06-14 21:31] VITALS: BP 104/57; PULSE 88; RESP 17; TEMP 36.8; O2SAT 97
[2023-06-15 06:00] VITALS: BP 122/66; PULSE 64; RESP 20; TEMP 36.6; O2SAT 100
[2023-06-15] MEDS: QUEtiapine Fumarate 100 MG TABLET PO ×3 (08:17→21:12)
[2023-06-15] MEDS: lisinopriL 10 MG TABLET PO (08:17)
[2023-06-15] MEDS: Atorvastatin Calcium 20 MG TABLET PO (08:17)
[2023-06-15] MEDS: Divalproex Sodium Sprinkles 125 MG CAP.DR.SPR 500 MG PO ×2 (08:17→21:12)
[2023-06-15] MEDS: clonazePAM 0.5 MG TABLET PO (08:17)
[2023-06-15] MEDS: Sertraline HCL 25 MG TABLET 75 MG PO (08:17)
[2023-06-15] MEDS: Levothyroxine Sodium 75 MCG TABLET PO (08:17)
[2023-06-15] MEDS: Memantine HCl 5 MG TABLET PO ×2 (08:17→21:12)
[2023-06-15] MEDS: Docusate Sodium 100 MG CAPSULE PO (10:09)
[2023-06-15 14:00] VITALS: BP 94/48; PULSE 74; RESP 20; TEMP 36.6; O2SAT 94
--- NOTE | 2023-06-15 20:01 | PC.NURSE ---
This RN took over pt care @ 1900. Pt sitting in bedside chair watching tv. Pt with 1 to 1 sitter. Pt yelling dont call me a fukn bitch Pt throwing her pitcher of water on the floor. Plan of care ongoing.
[2023-06-15] MEDS: Donepezil HCl 10 MG TABLET PO (21:13)
--- NOTE | 2023-06-15 21:18 | PC.NURSE ---
Pt medicated per jul. Pt now in bed watching tv. Pt refused enema. Plan of care ongoing.
--- NOTE | 2023-06-15 22:02 | PC.NURSE ---
Pt pacing the unit, getting into other beds. Pt moving chairs and going into rooms. Plan of care ongoing.
[2023-06-15 23:03] VITALS: BP 105/54; PULSE 101; RESP 20; TEMP 36.8; O2SAT 93
--- NOTE | 2023-06-16 00:16 | MHC.EDTECH ---
This tech took over care of patient at 2300,hourly rounds completed,patient is restless at this time,1-1 sitter at bedside for safety
--- NOTE | 2023-06-16 01:53 | MHC.EDTECH ---
Hourly rounds completed,patient is sleeping at this time,sitter at bedside for safety.
[2023-06-16] MEDS: Levothyroxine Sodium 75 MCG TABLET PO (05:48)
--- NOTE | 2023-06-16 05:50 | PC.NURSE ---
Pt ambulated to the bathroom with sitter. Pt back in bed. Pt medicated per jul. Plan of care ongoing.
[2023-06-16 06:00] VITALS: BP 125/61; PULSE 57; RESP 20; TEMP 36.7; O2SAT 98
--- NOTE | 2023-06-16 06:20 | PC.NURSE ---
Pt out of bed. when this RN attempted to redirect pt grabbed both RNs wrist tightly. Pt redirected back into bed with the help of tech. Pt resting in bed watching tv. Plan of care ongoing.
[2023-06-16] MEDS: lisinopriL 10 MG TABLET PO (08:34)
[2023-06-16] MEDS: Memantine HCl 5 MG TABLET PO ×2 (08:34→19:17)
[2023-06-16] MEDS: Atorvastatin Calcium 20 MG TABLET PO (08:34)
[2023-06-16] MEDS: Divalproex Sodium Sprinkles 125 MG CAP.DR.SPR 500 MG PO ×2 (08:35→19:17)
[2023-06-16] MEDS: Sertraline HCL 25 MG TABLET 75 MG PO (08:35)
[2023-06-16] MEDS: QUEtiapine Fumarate 100 MG TABLET PO ×3 (08:35→19:17)
[2023-06-16 14:00] VITALS: BP 94/72; PULSE 82; RESP 18; TEMP 36.9; O2SAT 96
[2023-06-16 19:17] VITALS: BP 110/72; PULSE 84; RESP 17; TEMP 36.6; O2SAT 95
[2023-06-16] MEDS: Donepezil HCl 10 MG TABLET PO (19:17)
[2023-06-17 08:59] VITALS: BP 105/67; PULSE 68; RESP 16; TEMP 36.6; O2SAT 98
[2023-06-17] MEDS: QUEtiapine Fumarate 100 MG TABLET PO ×3 (09:03→19:34)
[2023-06-17] MEDS: lisinopriL 10 MG TABLET PO (09:03)
[2023-06-17] MEDS: Sertraline HCL 25 MG TABLET 75 MG PO (09:03)
[2023-06-17] MEDS: Memantine HCl 5 MG TABLET PO ×2 (09:04→19:34)
[2023-06-17] MEDS: Atorvastatin Calcium 20 MG TABLET PO (09:04)
--- NOTE | 2023-06-17 09:27 | PC.NURSE ---
medicated per the MAR, offering no complaints. continues to request to tap dance, patient observer remains at bedside for patient's safety. visitor at bedside.
--- NOTE | 2023-06-17 10:02 | PC.NURSE ---
patient in community room with visitor playing cards
--- NOTE | 2023-06-17 10:40 | PC.NURSE ---
patient agitated, pacing around unit w/ patient observer. continues to look for tap shoes/sana.
[2023-06-17 14:00] VITALS: BP 93/64; PULSE 85; RESP 20; TEMP 36.7; O2SAT 97
--- NOTE | 2023-06-17 15:34 | MHC.CM.ED ---
Patient remains in ER overflow. Left message for Jo at [facility]. Waiting for return call back. Continue to monitor for d/c needs.
--- NOTE | 2023-06-17 18:56 | PC.NURSE ---
ED Charged RN notified patient is agitated, unsafe, intrusive and attempting to enter other patient's rooms in the ED overflow unit while trying to recieve handoff report for evening shift; patient unable to redirect despite sitter and nursing attempts. Patient hitting and pushing staff while trying to redirect back to bed. Provider Shameka Aldana notified, awaiting orders at this time.
--- NOTE | 2023-06-17 19:18 | PC.NURSE ---
Nuusing diamond finishing supervisor notified of concerns regarding patient and staff safety. Security presented to bedside to assist with speaking to patient.
[2023-06-17] MEDS: Divalproex Sodium Sprinkles 125 MG CAP.DR.SPR 500 MG PO (19:33)
[2023-06-17] MEDS: Donepezil HCl 10 MG TABLET PO (19:33)
[2023-06-17] MEDS: OLANZapine 10 MG VIAL 5 MG IM (19:35)
--- NOTE | 2023-06-17 19:42 | PC.NURSE ---
Patient currently in bed, continues with 1:1 sitter for safety. Pt agreeable to po meds after security rounded to bedside and assisted nursing with safety discussion, though pt is still confused and having bouts of agitation and attempting to get OOB. Provider order for 1x IM zyprexa given. Awaiting effectiveness. VSS. Safety measures in place.
[2023-06-17 19:43] VITALS: BP 95/54; PULSE 71; RESP 17; TEMP 36.2; O2SAT 96
--- NOTE | 2023-06-17 21:06 | MHC.EDTECH ---
Assisted pt to and from bathroom.
--- NOTE | 2023-06-18 01:32 | PC.NURSE ---
Patient continues in ED overflow pending placement. Patient resting/napping in bed since medicated per MAR as ordered and appropriate, +effect/reduced agitation. Pt still intermittently wakes and attempts to get OOB without asking; ambulates steady, assisted by staff to bathroom to void then back to bed. Breathing is even and unlabored without distress. Continues with 1:1 sitter as ordered. Hourly purposeful rounding in place. Bed alarm on and safety measures in place. Will continue to monitor for remainder of screenplay writer's scheduled care.
[2023-06-18 04:59] VITALS: BP 108/67; PULSE 69; RESP 18; TEMP 36.2; O2SAT 98
[2023-06-18] MEDS: Levothyroxine Sodium 75 MCG TABLET PO (05:03)
[2023-06-18] MEDS: Sertraline HCL 25 MG TABLET 75 MG PO (08:34)
[2023-06-18] MEDS: Memantine HCl 5 MG TABLET PO ×2 (08:34→20:46)
[2023-06-18] MEDS: QUEtiapine Fumarate 100 MG TABLET PO ×3 (08:34→20:46)
[2023-06-18] MEDS: Divalproex Sodium Sprinkles 125 MG CAP.DR.SPR 500 MG PO ×2 (08:34→20:46)
[2023-06-18] MEDS: lisinopriL 10 MG TABLET PO (08:34)
[2023-06-18] MEDS: Atorvastatin Calcium 20 MG TABLET PO (08:34)
[2023-06-18] MEDS: Docusate Sodium 100 MG CAPSULE PO (09:54)
[2023-06-18] MEDS: clonazePAM 0.5 MG TABLET PO ×2 (11:00→20:46)
--- NOTE | 2023-06-18 13:25 | MHC.CM.ED ---
Patient remains in ER overflow. Received notification from Jo at [facility] that the apartment that was supposed to be opening up on will now be filled by one of their assisted living residents that needs to transition to their memory unit. Their policy is always to transfer their internal patients as a priority over outside admissions. Markus made aware from T/W via telephone at [phone]. Markus was encouraged to accept apartment at [facility]. Markus felt patient could stay in the ER until an apartment was available at [facility]. T/W explained that was not reasonable or feasible. Also explained [facility] would require a hospital notice of non-payment and Markus would be charged approximately $1000 per day. Markus states he will not be able to afford [facility]. T/W agreed to meet with Markus tomorrow morning around 9am to discuss. Aviva Mistry CM director aware. Concepción from [facility] made aware and will reach out to Markus. Jo from [facility] made aware and will reach out to Markus. Continue to monitor for d/c needs.
[2023-06-18 14:00] VITALS: BP 112/61; PULSE 78; RESP 18; TEMP 37.1; O2SAT 98
--- NOTE | 2023-06-18 14:34 | PC.NURSE ---
Pt with two stat labs for ammonia and CMP. Charge nurse notified, so that E.R. tech can come and draw pt.
--- NOTE | 2023-06-18 15:13 | P.CNPS_ITS ---
History of Present Illness Date of Service: 06/18/2023 Chief Complaint: Dementia with agitation Discussed with referring provider: Yes Sources of Information: patient interviewed, chart reviewed and crisis/core team assessment reviewed HPI Narrative: Interim Hx: this automobile and property underwriter reviewed nursing notes and obtained collateral info from main staff who has been with her. It appears that pt was calmer as of last week, but more difficult to redirect this week. She had been started on clonazepam for restlessness, which in her situation seem to calm her down, in combination of seroquel and depakote. Clonazepam had felt off the MAR. She received one dose this morning with good effect and later has been sitting awake, calm. Past Psychiatric History: Diagnosed with Alzheimer dementia Review of Systems Review of Systems as per ER assessment [facility] Medical History (Updated 06/10/23 @ 10:19 by Zaira Munoz) Dementia with agitation Psychosis UTI (urinary tract infection) Dementia Family History: Denies Social History: The patient is the oldest of 5 children, her milestones were achieved at expected date H and she was raised by her parents. She attended regular school, she had a good childhood and later she went to college. 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 She got to her for the last 41 years. She has 2 adult children and she has good social support. Trauma History: Denies Diagnostics Vital Signs (24Hr): Vital Signs - 24 hr 06/17/23 19:43 06/18/23 04:59 06/18/23 14:00 Temperature 97.1 F 97.2 F 98.7 F Pulse Rate 71 69 78 Respiratory Rate 17 18 18 Blood Pressure 95/54 L 108/67 112/61 Pulse Oximetry 96 98 98 Oxygen Delivery Method Room Air Room Air Room Air BMI result Body Mass Index 23.1 Labs 06/04/23 21:41 06/04/23 21:41 Mental Status Exam Mental Status Exam Narrative: Appearance: wearing hospital gown, fair hygiene, in NAD Psychomotor: sitting in bed Speech: mostly clear, regular rate/rhythm/volume, spontaneous TP:no derailment, single word answer TC: confused, looking for someone Mood: good Affect: constricted SI: none HI: none VH/AH: none Delusions: mostly confabulation Insight/judgment: severely impaired x 2. Memory/cog: alert, only oriented to self. severe cognitive impairment. Medications Medications Current Medications Atorvastatin Calcium (Atorvastatin Calcium 20 Mg Tablet) 20 mg PO DAILY [facility] Last Admin: 06/18/23 08:34 Dose: 20 mg Clonazepam (Clonazepam 0.5 Mg Tablet) 0.5 mg PO BID [facility] Last Admin: 06/18/23 11:00 Dose: 0.5 mg Divalproex Sodium (Divalproex Sodium Sprinkles 125 Mg ) 500 mg PO BID [facility] Last Admin: 06/18/23 08:34 Dose: 500 mg Docusate Sodium (Docusate Sodium 100 Mg Capsule) 100 mg PO BID PRN PRN Reason: Constipation Last Admin: 06/18/23 09:54 Dose: 100 mg Donepezil HCl (Donepezil Hcl 10 Mg Tablet) 10 mg PO BEDTIME [facility] Last Admin: 06/17/23 19:33 Dose: 10 mg Levothyroxine Sodium (Levothyroxine Sodium 75 Mcg Tablet) 75 mcg PO DAILY@0600 [facility] Last Admin: 06/18/23 05:03 Dose: 75 mcg Lisinopril (Lisinopril 10 Mg Tablet) 10 mg PO DAILY [facility]; Protocol Last Admin: 06/18/23 08:34 Dose: 10 mg Memantine (Memantine Hcl 5 Mg Tablet) 5 mg PO BID [facility] Last Admin: 06/18/23 08:34 Dose: 5 mg Quetiapine Fumarate (Quetiapine Fumarate 100 Mg Tablet) 100 mg PO TID [facility] Last Admin: 06/18/23 14:02 Dose: 100 mg Sertraline HCl (Sertraline Hcl 25 Mg Tablet) 75 mg PO DAILY [facility] Last Admin: 06/18/23 08:34 Dose: 75 mg Allergies Allergies Allergy/AdvReac Type Severity Reaction Status Date / Time No Known Allergies Allergy Verified 02/01/23 03:42 Assessment & Plan Assessment & Plan (1) Major neurocognitive disorder: Status: Acute Code(s): F03.90 - Unspecified dementia, unspecified severity, without behavioral disturbance, psychotic disturbance, mood disturbance, and anxiety Plan Ms. Ewing is a 68 year-old woman with advanced dementia. She is awaiting placement. Pt was started on depakote 125mg po BID and olanzapine prn. Pt appears calmer, still intrusive and wondering in the ED. PLAN 06/13 increase seroquel to 100mg po TID due to pt continuing to present restless, pacing, today appears much calmer, attention somewhat improved not looking trough the automobile and property underwriter when asked questions. D/C belsomra to avoid over sedation or parasomnias. 06/18 restart clonazepam which had felt off JUL- this medication does seem to calm her down (mostly the restlessness) with no additional sedation. She has been eating well. continue seroquel and depakote. Total time managing care of this patient today ____ minutes. Patient educated on: diagnosis Informed Consent: does not understand
--- NOTE | 2023-06-18 16:21 | MHC.EDTECH ---
patient blood drawn and sent to lab .
[2023-06-18 16:29] LABS: Ammonia 83 umol/L (13-55)
[2023-06-18 16:36] LABS: Alanine Aminotransferase 62 U/L (0-31); Albumin Level 3.9 g/dL (3.5-5.0); Alkaline Phosphatase 88 U/L (39-117); Anion Gap 13 (12-20); Aspartate Amino Transferase 37 U/L (5-31); Bilirubin Total 0.2 mg/dL (0.0-1.0); Blood Urea Nitrogen 25 mg/dL (9-16); Calcium 9.1 mg/dL (8.4-10.2); Carbon Dioxide 28 mmol/L (22-29); Chloride 104 mmol/L (96-108); Creatinine Clr Calc Pharmacy 49.9; Estimated Glomerular Filt Rate 55; Glucose Random 89 mg/dL (60-115); Potassium 4.1 mmol/L (3.3-5.1); Sodium 141 mmol/L (135-145); Total Protein 6.9 g/dL (6.5-8.0)
--- NOTE | 2023-06-18 19:17 | PC.NURSE ---
This RN took over pt care @ 1900. Pt up out of bed ambulating independently. Pt with sitter. Pt redirected by sitter back into bed. Plan of care ongoing.
--- NOTE | 2023-06-18 19:29 | PC.NURSE ---
Pt out of bed and into bedside chair. Plan of care ongoing.
[2023-06-18] MEDS: Donepezil HCl 10 MG TABLET PO (20:46)
--- NOTE | 2023-06-18 20:52 | PC.NURSE ---
Pt sitting in bedside chair. Pt medicated per jul. Pt attempting to spit out meds, but redirected. Pt with sitter. Plan of care ongoing.
[2023-06-18 21:16] VITALS: BP 152/70; PULSE 77; RESP 18; TEMP 36.2; O2SAT 97
[2023-06-19 06:00] VITALS: BP 143/74; PULSE 62; RESP 18; TEMP 36.3; O2SAT 95
[2023-06-19] MEDS: Levothyroxine Sodium 75 MCG TABLET PO (06:05)
--- NOTE | 2023-06-19 06:08 | PC.NURSE ---
Pt medicated per jul. Plan of care ongoing.
[2023-06-19] MEDS: QUEtiapine Fumarate 100 MG TABLET PO ×3 (08:13→20:25)
[2023-06-19] MEDS: Atorvastatin Calcium 20 MG TABLET PO (08:13)
[2023-06-19] MEDS: Divalproex Sodium Sprinkles 125 MG CAP.DR.SPR 500 MG PO ×2 (08:13→20:25)
[2023-06-19] MEDS: clonazePAM 0.5 MG TABLET PO ×3 (08:13→21:28)
[2023-06-19] MEDS: lisinopriL 10 MG TABLET PO (08:13)
[2023-06-19] MEDS: Sertraline HCL 25 MG TABLET PO (08:13)
[2023-06-19] MEDS: Memantine HCl 5 MG TABLET PO ×2 (08:13→20:25)
--- NOTE | 2023-06-19 08:15 | PC.NURSE ---
patient alert to person, pt believes she is at [facility], unsure of month until she was told it was , pt sitting up in bed eating breakfast 1:1 sitter at bedside, pt took medications whole with milk, respiratory rate equal and non labored, lungs clear, bed alarm intact, vss, call rich within reach, will continue to monitor
--- NOTE | 2023-06-19 11:24 | PC.NURSE ---
labs drawn per orders
[2023-06-19 11:28] LABS: MANUAL DIFF FLAG NO
[2023-06-19 11:40] LABS: Basophils Absolute Auto 0.1 X10*3/uL (0.0-0.2); Basophils Percent Auto 0.9 % (0-2); Eosinophils Absolute Auto 0.3 X10*3/uL (0.0-0.4); Eosinophils Percent Auto 3.8 % (0-4); Hematocrit 36.1 % (37.0-47.0); Hemoglobin 11.8 g/dl (12.0-16.0); Imm Gran Abs Auto 0.03 X10*3/uL (0.00-0.03); Imm Gran Pct Auto 0.4 % (0.0-0.4); Lymphocytes Absolute Auto 1.4 X10*3/uL (1.2-4.9); Lymphocytes Percent Auto 20.1 % (20-40); Mean Corpuscular HGB Conc 32.7 g/dl (31.0-35.0); Mean Corpuscular Volume 85.7 fL (80.0-98.0); Mean Platelet Volume 11.6 fL (9.4-12.3); Monocytes Absolute Auto 0.5 X10*3/uL (0.1-1.2); Monocytes Percent Auto 7.6 % (2-11); Neutrophils Absolute Auto 4.6 x10*3/uL (2.0-8.3); Neutrophils Percent Auto 67.2 % (45-73); Platelet Count 208 X10*3/uL (160-400); Red Blood Count 4.21 X10*6/uL (4.20-5.50); Red Cell Distribution Width 12.9 % (11.0-16.0); White Blood Count 6.8 X10*3/uL (4.8-10.8)
[2023-06-19 11:48] LABS: Alanine Aminotransferase 50 U/L (0-31); Albumin Level 3.6 g/dL (3.5-5.0); Alkaline Phosphatase 82 U/L (39-117); Anion Gap 11 (12-20); Aspartate Amino Transferase 26 U/L (5-31); Bilirubin Total 0.2 mg/dL (0.0-1.0); Blood Urea Nitrogen 25 mg/dL (9-16); Calcium 8.5 mg/dL (8.4-10.2); Carbon Dioxide 27 mmol/L (22-29); Chloride 107 mmol/L (96-108); Creatinine Clr Calc Pharmacy 57.9; Estimated Glomerular Filt Rate > 60; Glucose Random 110 mg/dL (60-115); Potassium 4.1 mmol/L (3.3-5.1); Sodium 141 mmol/L (135-145); Total Protein 6.4 g/dL (6.5-8.0)
--- NOTE | 2023-06-19 12:18 | PM.PSYCN ---
History of Present Illness Date of Service: 06/19/23 Chief Complaint: Dementia with agitation Sources of Information: patient interviewed, chart reviewed and crisis/core team assessment reviewed HPI Narrative: Interim Hx: p appears calmer, less restless, less pacing, able to be redirected. Pt sitting, smiles when this specifications writer asks how is she doing. Her attention is improved. No over sedation noted. Past Psychiatric History: Diagnosed with Alzheimer dementia Review of Systems Review of Systems as per ER assessment [facility] Medical History (Updated 06/10/23 @ 10:19 by Zaira Munoz) Dementia with agitation Psychosis UTI (urinary tract infection) Dementia Family History: Denies Social History: The patient is the oldest of 5 children, her milestones were achieved at expected date H and she was raised by her parents. She attended regular school, she had a good childhood and later she went to college. 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 She got to her for the last 41 years. She has 2 adult children and she has good social support. Trauma History: Denies Diagnostics Vital Signs (24Hr): Vital Signs - 24 hr 06/18/23 14:00 06/18/23 21:16 06/19/23 06:00 Temperature 98.7 F 97.1 F 97.3 F Pulse Rate 78 77 62 Respiratory Rate 18 18 18 Blood Pressure 112/61 152/70 H 143/74 H Pulse Oximetry 98 97 95 Oxygen Delivery Method Room Air Room Air Room Air BMI result Body Mass Index 23.1 Labs 06/19/23 11:16 06/19/23 11:16 Labs: Laboratory Results - last 48 hr 06/18/23 06/19/23 16:15 11:16 WBC 6.8 RBC 4.21 Hgb 11.8 L Hct 36.1 L MCV 85.7 MCH 28.0 MCHC 32.7 RDW 12.9 Plt Count 208 MPV 11.6 Immature Gran % (Auto) 0.4 Neut % (Auto) 67.2 Lymph % (Auto) 20.1 [place] % (Auto) 7.6 Eos % (Auto) 3.8 Baso % (Auto) 0.9 Lymph # (Auto) 1.4 [place] # (Auto) 0.5 Eos # (Auto) 0.3 Baso # (Auto) 0.1 Abs Immat Gran (auto) 0.03 Absolute Neuts (auto) 4.6 Absolute Nucleated RBC 0.000 Nucleated RBC % (auto) 0.0 Sodium 141 141 Potassium 4.1 4.1 Chloride 104 107 Carbon Dioxide 28 27 Anion Gap 13 11 L BUN 25 H 25 H Creatinine 1.01 0.87 Estim Creat Clear Calc 49.9 57.9 Estimated GFR 55 > 60 Random Glucose 89 110 Calcium 9.1 8.5 D Total Bilirubin 0.2 0.2 AST 37 H 26 ALT 62 H 50 H Alkaline Phosphatase 88 82 Ammonia 83 H Cancelled Total Protein 6.9 6.4 L Albumin 3.9 3.6 Imaging Radiology Impressions: ITS Impressions Abdomen Ultrasound 06/18/23 18:14 IMPRESSION: Mildly increased hepatic echogenicity and coarsened echotexture, which could reflect underlying hepatocellular disease. No significant contour nodularity to specifically indicate cirrhosis. Mental Status Exam Mental Status Exam Narrative: Appearance: wearing hospital gown, fair hygiene, in NAD Psychomotor: sitting in bed Speech: mostly clear, regular rate/rhythm/volume, spontaneous TP:no derailment, single word answer TC: confused, looking for someone Mood: good Affect: constricted SI: none HI: none VH/AH: none Delusions: mostly confabulation Insight/judgment: severely impaired x 2. Memory/cog: alert, only oriented to self. severe cognitive impairment. Medications Medications Current Medications Atorvastatin Calcium (Atorvastatin Calcium 20 Mg Tablet) 20 mg PO DAILY [facility] Last Admin: 06/19/23 08:13 Dose: 20 mg Clonazepam (Clonazepam 0.5 Mg Tablet) 0.5 mg PO BID [facility] Last Admin: 06/19/23 08:13 Dose: 0.5 mg Clonazepam (Clonazepam 0.5 Mg Tablet) 0.5 mg PO DAILY PRN PRN Reason: restlessness Divalproex Sodium (Divalproex Sodium Sprinkles 125 Mg ) 500 mg PO BID [facility] Last Admin: 06/19/23 08:13 Dose: 500 mg Docusate Sodium (Docusate Sodium 100 Mg Capsule) 100 mg PO BID PRN PRN Reason: Constipation Last Admin: 06/18/23 09:54 Dose: 100 mg Donepezil HCl (Donepezil Hcl 10 Mg Tablet) 10 mg PO BEDTIME [facility] Last Admin: 06/18/23 20:46 Dose: 10 mg Levothyroxine Sodium (Levothyroxine Sodium 75 Mcg Tablet) 75 mcg PO DAILY@0600 [facility] Last Admin: 06/19/23 06:05 Dose: 75 mcg Lisinopril (Lisinopril 10 Mg Tablet) 10 mg PO DAILY [facility]; Protocol Last Admin: 06/19/23 08:13 Dose: 10 mg Memantine (Memantine Hcl 5 Mg Tablet) 5 mg PO BID [facility] Last Admin: 06/19/23 08:13 Dose: 5 mg Quetiapine Fumarate (Quetiapine Fumarate 100 Mg Tablet) 100 mg PO TID [facility] Last Admin: 06/19/23 08:13 Dose: 100 mg Quetiapine Fumarate (Quetiapine Fumarate 50 Mg Tablet) 50 mg PO Q6H PRN PRN Reason: agitation Sertraline HCl (Sertraline Hcl 25 Mg Tablet) 25 mg PO DAILY [facility] Last Admin: 06/19/23 08:13 Dose: 25 mg Allergies Allergies Allergy/AdvReac Type Severity Reaction Status Date / Time No Known Allergies Allergy Verified 02/01/23 03:42 Assessment & Plan Assessment & Plan (1) Major neurocognitive disorder: Status: Acute Code(s): F03.90 - Unspecified dementia, unspecified severity, without behavioral disturbance, psychotic disturbance, mood disturbance, and anxiety Plan Ms. Ewing is a 68 year-old woman with advanced dementia. She is awaiting placement. Pt was started on depakote 125mg po BID and olanzapine prn. Pt appears calmer, still intrusive and wondering in the ED. PLAN 06/13 increase seroquel to 100mg po TID due to pt continuing to present restless, pacing, today appears much calmer, attention somewhat improved not looking trough the specifications writer when asked questions. D/C belsomra to avoid over sedation or parasomnias. 06/18 restart clonazepam which had felt off MAR- this medication does seem to calm her down (mostly the restlessness) with no additional sedation. She has been eating well. continue seroquel and depakote. 06/19 continue current plan. CLOnazepam does help with her pacing and restless, probably more than antipsychotic. Total time managing care of this patient today ____ minutes.
[2023-06-19 12:39] LABS: Ammonia 44 umol/L (13-55)
[2023-06-19 14:00] VITALS: BP 104/62; PULSE 70; RESP 16; TEMP 36.4; O2SAT 96
--- NOTE | 2023-06-19 14:04 | PC.NURSE ---
pt ambulating on unit with steady gait stby assist of sitter, pt has been calm/cooporative through the shift.
--- NOTE | 2023-06-19 16:11 | MHC.CM.ED ---
Met with patient, Markus, daughter Saima Flores from patient experience in regards to discharge planning. Markus is accepting apartment at [facility]. He will connect with Concepción at [facility]. T/W had a discussion with Concepción. Anticipate patient will move into [facility] on Saturday 06/24. Markus aware and feels that is appropriate. Continue to monitor for d/c needs.
[2023-06-19] MEDS: QUEtiapine Fumarate 50 MG TABLET PO (18:24)
--- NOTE | 2023-06-19 18:26 | PC.NURSE ---
pt has become increased agitated, inability to be redirected and pacing back and forth restless- pt attempting to put items into the plug sockets. this nurse medicated with PRNs, tech and sitter are walking with patient and keeping her safe.
[2023-06-19] MEDS: OLANZapine ODT 10 MG TAB.RAPDIS TRANSLINGU (18:48)
--- NOTE | 2023-06-19 19:35 | PC.NURSE ---
patient became intrusive and attempting to forcefully go into other patients rooms, provider was notified additional medication was ordered and given to patient, pt willingly took po medication, 1:1 sitter will continue to monitor
[2023-06-19] MEDS: Donepezil HCl 10 MG TABLET PO (20:25)
[2023-06-19 21:03] VITALS: BP 111/69; PULSE 73; RESP 18; TEMP 36.4; O2SAT 96
[2023-06-20 06:00] VITALS: BP 103/59; PULSE 54; RESP 18; TEMP 36.2; O2SAT 97
[2023-06-20] MEDS: Levothyroxine Sodium 75 MCG TABLET PO (06:17)
[2023-06-20] MEDS: Atorvastatin Calcium 20 MG TABLET PO (09:28)
[2023-06-20] MEDS: clonazePAM 0.5 MG TABLET PO ×2 (09:28→19:53)
[2023-06-20] MEDS: Sertraline HCL 25 MG TABLET PO (09:28)
[2023-06-20] MEDS: lisinopriL 10 MG TABLET PO (09:28)
[2023-06-20] MEDS: Divalproex Sodium Sprinkles 125 MG CAP.DR.SPR 500 MG PO ×2 (09:28→19:53)
[2023-06-20] MEDS: Memantine HCl 5 MG TABLET PO ×2 (09:28→19:53)
[2023-06-20] MEDS: QUEtiapine Fumarate 100 MG TABLET PO ×3 (09:28→19:53)
--- NOTE | 2023-06-20 10:12 | MHC.EDTECH ---
patient brushed teeth and refused to wash up, bed change was done
--- NOTE | 2023-06-20 10:12 | PC.NURSE ---
Pt alert, oriented to self only. Very pleasant and social/interactive this morning. Offers no complaints. Med and meal compliant. Plan of care ongoing.
--- NOTE | 2023-06-20 12:03 | PC.NURSE ---
assumed care of pt at 1100, family initially at bedside, pt calm and engaging w family memebers, 1:1 at bedside after family left unit. pt eating lunch in bed.
--- NOTE | 2023-06-20 13:50 | PC.NURSE ---
pt intermittently pacing around overflow unit w 1:1 and resting in bed. continues to enter other pt's space w some difficulty redirecting. pleasantly confused.
[2023-06-20 13:58] VITALS: BP 98/60; PULSE 82; RESP 20; TEMP 36.5; O2SAT 97
[2023-06-20] MEDS: Donepezil HCl 10 MG TABLET PO (19:53)
[2023-06-20] MEDS: QUEtiapine Fumarate 50 MG TABLET PO (20:15)
--- NOTE | 2023-06-20 20:17 | PC.NURSE ---
pt medicated at 1999 with po nightime medications. pt noted to have increased agitation and aggression with this rn, molasses feed mixer, adn pt observer. pt provider with prn seroquel.
[2023-06-20 22:44] VITALS: RESP 16
--- NOTE | 2023-06-20 22:44 | PC.NURSE ---
pt noted t be sleeping. rise and fall of chest noted. RR 16 non labored
[2023-06-21 06:35] VITALS: RESP 14
[2023-06-21] MEDS: clonazePAM 0.5 MG TABLET PO ×3 (08:29→21:31)
[2023-06-21] MEDS: QUEtiapine Fumarate 100 MG TABLET PO ×3 (08:29→21:31)
[2023-06-21] MEDS: Sertraline HCL 25 MG TABLET PO (08:29)
[2023-06-21] MEDS: lisinopriL 10 MG TABLET PO (08:29)
[2023-06-21] MEDS: Memantine HCl 5 MG TABLET PO ×2 (08:29→21:31)
[2023-06-21] MEDS: Divalproex Sodium Sprinkles 125 MG CAP.DR.SPR 500 MG PO ×2 (08:29→21:31)
[2023-06-21] MEDS: Atorvastatin Calcium 20 MG TABLET PO (08:29)
--- NOTE | 2023-06-21 08:38 | PC.NURSE ---
Calm and cooperative, ate well for breakfast, denies pain or discomfort. Medicated per jul. Sitting in chair looking out window
[2023-06-21] MEDS: Acetaminophen 325 MG TABLET 650 MG PO (09:37)
[2023-06-21 09:38] VITALS: BP 100/59; PULSE 91; RESP 18; TEMP 36.6; O2SAT 97
[2023-06-21 13:34] VITALS: BP 102/67; PULSE 75; RESP 18; TEMP 36.6; O2SAT 100
--- NOTE | 2023-06-21 14:26 | MHC.CM.ED ---
Patient remains in ER overflow. [facility] completed by Luz LAM and sent to Concepción of [facility]. Concepción will need Markus to complete patient's move-in paperwork by Saturday. If it is not completed patient will not be able to transfer to their facility on Saturday. Continue to monitor for d/c needs.
--- NOTE | 2023-06-21 14:30 | PC.NURSE ---
Patient assisted with personal hygiene, declined to change clothes
--- NOTE | 2023-06-21 15:49 | PC.NURSE ---
Agitated attempting to enter other patients rooms,diffcult to re-direct away from doors. Grabbing at staffs hands and arms to try and enter room. Offered food and fluids with little effect. Medicated per mar, patient spoke with /daughter on phone and calmed. Sitting in common area eating a snack
[2023-06-21 20:11] VITALS: BP 111/54; PULSE 64; RESP 14; TEMP 36.4; O2SAT 97
--- NOTE | 2023-06-21 20:12 | MHC.EDTECH ---
Assumed care of pt at 1930. Vitals updated. Sleeping in bed with sitter close by. RN aware
--- NOTE | 2023-06-21 21:11 | MHC.CM.ED ---
CM received a telephone call from [facility] requesting paper scripts for any new meds the patient has been started on. [facility] has a contract with [facility] and the patient goes to [facility], because her medications are covered by [employer], not medicare and her does not want to change pharmacies, as [facility] requires that they use [facility]. CM reviewed all patient medications with her /HCP Jim. Pt will need paper scripts for Klonopin, Depakote Sprinkes, Donepezil and Seroquel. Fran PA aware and will provide paper scripts. Jim will pick them up this weekend, so they can be filled and brought to facility. Expected move in date of 06/24 if all paperwork is signed. Will need to verify with [facility] and book BLS transport for Saturday. Pt has severe dementia. Call Анна [phone] at the [facility].
[2023-06-21] MEDS: Donepezil HCl 10 MG TABLET PO (21:31)
--- NOTE | 2023-06-21 23:17 | PC.NURSE ---
This administrative underwriter assumed care of this Pt at 1900. Pt appears to bed sleeping, awakens with tactile stimuli. Calm and cooperative, meds given per JUL. Pt ambulated to stand by assist to BR. 1:1 sitter at bedside.
--- NOTE | 2023-06-22 05:01 | PC.NURSE ---
Pt appears to be sleeping, equal, nonlabored respirations, no apparent distress. 1:1 staff remains at bedside. Plan of care ongoing.
[2023-06-22 05:44] VITALS: BP 152/75; PULSE 63; RESP 16; TEMP 36.4; O2SAT 98
[2023-06-22] MEDS: Levothyroxine Sodium 75 MCG TABLET PO (05:45)
[2023-06-22 06:17] LABS: Ammonia 56 umol/L (13-55)
[2023-06-22 08:15] VITALS: BP 113/57; PULSE 73; RESP 16; TEMP 36.3; O2SAT 98
--- NOTE | 2023-06-22 08:15 | PC.NURSE ---
PT IS A/O X 2 (NAME & WHERE). PT CONTINUES TO BE CONFUSED. NO SOB/ARACELIS NOTED SPEAKS IN FULL SENTENCES. PT DENIES ANY PAIN/DISC. NO EDEMA NOTED. PT IS CALM. PT AMB (I) GAIT STEADY WITH CONTACT GUARD ON THE UNIT. PT GIVEN COLACE 100MG PRN FOR CONSTIPATION. WILL CONTINUE TO MONITOR. THE PLAN IS FOR THE PT TO BE TRANSFERRED TO THE [facility] [place] ON Saturday06/24/23. WILL CONTINUE TO MONITOR.
--- NOTE | 2023-06-22 08:19 | MHC.EDTECH ---
patient was given her breakfast. patient ate 95% of her breakfast.
[2023-06-22] MEDS: Divalproex Sodium Sprinkles 125 MG CAP.DR.SPR 500 MG PO ×2 (08:21→19:55)
[2023-06-22] MEDS: Memantine HCl 5 MG TABLET PO ×2 (08:21→19:56)
[2023-06-22] MEDS: Atorvastatin Calcium 20 MG TABLET PO (08:21)
[2023-06-22] MEDS: clonazePAM 0.5 MG TABLET PO ×3 (08:21→22:01)
[2023-06-22] MEDS: lisinopriL 10 MG TABLET PO (08:21)
[2023-06-22] MEDS: QUEtiapine Fumarate 100 MG TABLET PO ×3 (08:26→19:56)
[2023-06-22] MEDS: Docusate Sodium 100 MG CAPSULE PO (08:28)
--- NOTE | 2023-06-22 10:11 | MHC.EDTECH ---
patients bedding was changed and patient is walking around with staff.
--- NOTE | 2023-06-22 11:23 | MHC.EDTECH ---
Patient was physically aggressive towards staff. Staff redirected her and she went to walk with staff.
--- NOTE | 2023-06-22 11:24 | MHC.EDTECH ---
family here to visit and at the bedside.
--- NOTE | 2023-06-22 12:37 | MHC.EDTECH ---
Patient ate lunch with family. Patient ate 100% of lunch and a dessert that family brought.
[2023-06-22] MEDS: QUEtiapine Fumarate 50 MG TABLET PO (13:13)
[2023-06-22 18:22] VITALS: BP 117/57; PULSE 76; RESP 18; TEMP 37; O2SAT 98
--- NOTE | 2023-06-22 18:25 | MHC.EDTECH ---
Patient ate 100% of her dinner.
[2023-06-22] MEDS: Donepezil HCl 10 MG TABLET PO (19:56)
[2023-06-23] MEDS: QUEtiapine Fumarate 50 MG TABLET PO (04:10)
[2023-06-23] MEDS: Levothyroxine Sodium 75 MCG TABLET PO (04:10)
[2023-06-23 05:52] VITALS: BP 115/59; PULSE 78; RESP 20; TEMP 36.4; O2SAT 96
[2023-06-23] MEDS: Divalproex Sodium Sprinkles 125 MG CAP.DR.SPR 500 MG PO ×2 (08:44→19:59)
[2023-06-23] MEDS: QUEtiapine Fumarate 100 MG TABLET PO ×2 (08:44→19:59)
[2023-06-23] MEDS: Memantine HCl 5 MG TABLET PO ×2 (08:45→19:59)
[2023-06-23] MEDS: Atorvastatin Calcium 20 MG TABLET PO (08:45)
[2023-06-23] MEDS: lisinopriL 10 MG TABLET PO (08:45)
[2023-06-23] MEDS: clonazePAM 0.5 MG TABLET PO ×3 (08:45→19:59)
--- NOTE | 2023-06-23 10:45 | PM.PSYCN ---
History of Present Illness Date of Service: 06/23/2023 Chief Complaint: Dementia with agitation Reason for Consult: f/u Sources of Information: patient interviewed, chart reviewed and crisis/core team assessment reviewed HPI Narrative: Interim Hx: depakote level reviewed- within therapeutic range. No side effects. Less restless but continues at times to pace but able to be redirected. No over sedation during the day. No need for IM in past several days. Pt scheduled to go to SNF. she has been eating well. Past Psychiatric History: Diagnosed with Alzheimer dementia Review of Systems Review of Systems as per ER assessment [facility] Medical History (Updated 06/10/23 @ 10:19 by Zaira Munoz) Dementia with agitation Psychosis UTI (urinary tract infection) Dementia Family History: Denies Social History: The patient is the oldest of 5 children, her milestones were achieved at expected date H and she was raised by her parents. She attended regular school, she had a good childhood and later she went to college. 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 She got to her for the last 41 years. She has 2 adult children and she has good social support. Trauma History: Denies Diagnostics Vital Signs (24Hr): Vital Signs - 24 hr 06/22/23 18:22 06/23/23 05:52 Temperature 98.6 F 97.6 F Pulse Rate 76 78 Respiratory Rate 18 20 Blood Pressure 117/57 L 115/59 L Pulse Oximetry 98 96 Oxygen Delivery Method Room Air Room Air BMI result Body Mass Index 23.1 Labs 06/19/23 11:16 06/19/23 11:16 Labs: Laboratory Results - last 48 hr 06/22/23 05:57 Ammonia 56 H Valproic Acid 63.0 Imaging Radiology Impressions: ITS Impressions Abdomen Ultrasound 06/18/23 18:14 IMPRESSION: Mildly increased hepatic echogenicity and coarsened echotexture, which could reflect underlying hepatocellular disease. No significant contour nodularity to specifically indicate cirrhosis. Mental Status Exam Mental Status Exam Narrative: Appearance: wearing hospital gown, fair hygiene, in NAD Psychomotor: sitting in bed Speech: mostly clear, regular rate/rhythm/volume, spontaneous TP:no derailment, single word answer TC: confused, looking for someone Mood: good Affect: constricted SI: none HI: none VH/AH: none Delusions: mostly confabulation Insight/judgment: severely impaired x 2. Memory/cog: alert, only oriented to self. severe cognitive impairment. Medications Medications Current Medications Acetaminophen (Acetaminophen 325 Mg Tablet) 650 mg PO ONCE PRN PRN Reason: Pain, Mild (Pain Scale 1-3) Last Admin: 06/21/23 09:37 Dose: 650 mg Atorvastatin Calcium (Atorvastatin Calcium 20 Mg Tablet) 20 mg PO DAILY [facility] Last Admin: 06/23/23 08:45 Dose: 20 mg Clonazepam (Clonazepam 0.5 Mg Tablet) 0.5 mg PO BID [facility] Last Admin: 06/23/23 08:45 Dose: 0.5 mg Clonazepam (Clonazepam 0.5 Mg Tablet) 0.5 mg PO DAILY PRN PRN Reason: restlessness Last Admin: 06/22/23 22:01 Dose: 0.5 mg Divalproex Sodium (Divalproex Sodium Sprinkles 125 Mg ) 500 mg PO BID [facility] Last Admin: 06/23/23 08:44 Dose: 500 mg Docusate Sodium (Docusate Sodium 100 Mg Capsule) 100 mg PO BID PRN PRN Reason: Constipation Last Admin: 06/22/23 08:28 Dose: 100 mg Donepezil HCl (Donepezil Hcl 10 Mg Tablet) 10 mg PO BEDTIME [facility] Last Admin: 06/22/23 19:56 Dose: 10 mg Levothyroxine Sodium (Levothyroxine Sodium 75 Mcg Tablet) 75 mcg PO DAILY@0600 [facility] Last Admin: 06/23/23 04:10 Dose: 75 mcg Lisinopril (Lisinopril 10 Mg Tablet) 10 mg PO DAILY [facility]; Protocol Last Admin: 06/23/23 08:45 Dose: 10 mg Memantine (Memantine Hcl 5 Mg Tablet) 5 mg PO BID [facility] Last Admin: 06/23/23 08:45 Dose: 5 mg Quetiapine Fumarate (Quetiapine Fumarate 100 Mg Tablet) 100 mg PO TID [facility] Last Admin: 06/23/23 08:44 Dose: 100 mg Quetiapine Fumarate (Quetiapine Fumarate 50 Mg Tablet) 50 mg PO Q6H PRN PRN Reason: agitation Last Admin: 06/23/23 04:10 Dose: 50 mg Allergies Allergies Allergy/AdvReac Type Severity Reaction Status Date / Time No Known Allergies Allergy Verified 02/01/23 03:42 Assessment & Plan Assessment & Plan (1) Major neurocognitive disorder: Status: Acute Code(s): F03.90 - Unspecified dementia, unspecified severity, without behavioral disturbance, psychotic disturbance, mood disturbance, and anxiety Plan Ms. Ewing is a 68 year-old woman with advanced dementia. She is awaiting placement. Pt was started on depakote 125mg po BID and olanzapine prn. Pt appears calmer, still intrusive and wondering in the ED. PLAN 06/13 increase seroquel to 100mg po TID due to pt continuing to present restless, pacing, today appears much calmer, attention somewhat improved not looking trough the newswriter when asked questions. D/C belsomra to avoid over sedation or parasomnias. 06/18 restart clonazepam which had felt off JUL- this medication does seem to calm her down (mostly the restlessness) with no additional sedation. She has been eating well. continue seroquel and depakote. 06/19 continue current plan. CLOnazepam does help with her pacing and restless, probably more than antipsychotic. 06/23 continue tx. depakote levels checked on 06/22. Total time managing care of this patient today ____ minutes.
--- NOTE | 2023-06-23 18:00 | MHC.EDTECH ---
Patient just woke up ,use bathroom ,was set up with dinner ,and ate 100 % of meal .Drink 240 ml fluids .
[2023-06-23 19:57] VITALS: BP 117/73; PULSE 79; RESP 16; TEMP 36.6; O2SAT 97
[2023-06-23] MEDS: Donepezil HCl 10 MG TABLET PO (19:58)
--- NOTE | 2023-06-23 20:00 | MHC.EDTECH ---
patient walk around for awhile with staff ,now in bed vitals taken .
--- NOTE | 2023-06-24 00:58 | PC.NURSE ---
Assumed care of PT at 2300. PT appears to be sleeping. Respirations even and labored. video monitor and bed alarm on. pt in line of sight of nurses station. plan of care ongoing.
[2023-06-24 07:37] VITALS: BP 102/60; PULSE 55; RESP 18; TEMP 36.6; O2SAT 99
[2023-06-24] MEDS: lisinopriL 10 MG TABLET PO (08:38)
[2023-06-24] MEDS: Divalproex Sodium Sprinkles 125 MG CAP.DR.SPR 500 MG PO (08:38)
[2023-06-24] MEDS: Atorvastatin Calcium 20 MG TABLET PO (08:38)
[2023-06-24] MEDS: QUEtiapine Fumarate 100 MG TABLET PO (08:39)
[2023-06-24] MEDS: Memantine HCl 5 MG TABLET PO (08:39)
[2023-06-24] MEDS: clonazePAM 0.5 MG TABLET PO (08:39)
[2023-06-24] MEDS: Levothyroxine Sodium 75 MCG TABLET PO (08:42)
--- NOTE | 2023-06-24 08:42 | PC.NURSE ---
Addendum entered by Ilan Guerrero RN 06/24/23 12:36: pt's picking up scripts Addendum entered by Ilan Guerrero RN 06/24/23 12:25: contacted facility to give report Original Note: pt was not given her levothyroxine this AM prior to this RNs shift. This RN was unable to unchart previous RNs documentation therefor an unscheduled administration was placed.
--- NOTE | 2023-06-24 08:57 | MHC.EDTECH ---
Pt ate 100% of her breakfast. 240cc of fluids
--- NOTE | 2023-06-24 12:22 | MHC.EDTECH ---
pt ate 100% of her lunch. 240cc of fluids
== END 2023-06-24 13:47 | disposition other institution (70) ==
PROVIDERS: Clinical Nurse Specialist Psychiatric/Mental Health, Adult; Emergency Medicine; Registered Nurse Emergency; Social Worker; Emergency Provider Emergency Medicine Emergency Medical Services; PCP Internal Medicine
DX: N39.0 Urinary tract infection, site not specified (principal); F03.90 Unspecified dementia, unspecified severity, without behavioral disturbance, psychotic disturbance, mood disturbance, and anxiety; R00.1 Bradycardia, unspecified; Z11.52 Encounter for screening for COVID-19; Z87.891 Personal history of nicotine dependence; Z79.899 Other long term (current) drug therapy
CPT/HCPCS: 36415; 76705; 80048; 80053; 80076; 80164; 81001; 81003; 82140; 82607; 82746; 83036; 83690; 83735; 84443; 85025; 87086; 87635; 93005; 99285; J2359; S9485

== ENCOUNTER → 2023-06-04 20:53 | Outpatient (BNV) | payer MEDICARE, OTHER, SELFPAY | PROVIDERS: Emergency Provider Emergency Medicine Emergency Medical Services; PCP Internal Medicine; Visit Provider Clinical Nurse Specialist Psychiatric/Mental Health, Adult | DX: F03.90 Unspecified dementia, unspecified severity, without behavioral disturbance, psychotic disturbance, mood disturbance, and anxiety (principal) | CPT/HCPCS: 99283; 99285 ==

== ENCOUNTER → 2023-06-04 21:07 | Outpatient (BNV) | payer MEDICARE, OTHER, SELFPAY | PROVIDERS: Emergency Provider Emergency Medicine; Visit Provider Internal Medicine Cardiovascular Disease | DX: R00.1 Bradycardia, unspecified (principal) | CPT/HCPCS: 93010 ==

== ENCOUNTER 2023-07-19 11:49 | Emergency (ER) | payer MEDICARE, OTHER, SELFPAY ==
--- NOTE | ~2023-07-19 | XR_ITS ---
EXAMINATION: XR CHEST CLINICAL INFORMATION: Weakness. COMPARISON: None available. TECHNIQUE: Frontal view of the chest was obtained. FINDINGS: Heart size is normal. There is no consolidation within either lung. No large pleural effusion. No pneumothorax. No acute osseous abnormality. XR/XR chest 1V IMPRESSION: No acute cardiopulmonary disease.
--- NOTE | ~2023-07-19 | CT_ITS ---
EXAMINATION: CT HEAD WITHOUT CONTRAST CLINICAL INFORMATION: Altered mental status COMPARISON: None available. TECHNIQUE: Contiguous axial imaging was performed from the skull base to vertex without intravenous administration of contrast. This CT examination was performed using dose optimization techniques as appropriate, variously including the following: *Automated exposure control *Adjustment of mA and/or kV according to patient size (this includes techniques or standardized protocols for targeted exams where dose is matched to indication/reason for exam; i.e. extremities or head) *Use of iterative reconstruction technique DLP: 664.94 mGy-cm FINDINGS: Ventricles, sulci and cisterns are markedly dilated for the patient's age. There is asymmetric prominence of the right occipital horn. There is no midline shift, no abnormal intra- or extra- axial fluid accumulation. Vargas and white matter differentiation is normal. Bone window images show no evidence of skull fracture. Polypoid mucosal lesion measuring 1.5 cm in diameter is partially visualized at anterior lateral wall of right maxillary sinus. CT/CT head/brain wo IV con IMPRESSION: 1. Cerebral atrophy and ventriculomegaly more than expected for the patient's age. 2. Asymmetric prominence of the right occipital horn. 3. No acute intracranial hemorrhage. 4. Polypoid mucosal lesion is partially visualized at anterior lateral wall of right maxillary sinus.
--- NOTE | ~2023-07-19 | US_ITS ---
EXAMINATION: US VENOUS ULTRASOUND WITH DOPPLER LOWER EXTREMITY, LEFT CLINICAL INFORMATION: Left lower extremity edema. COMPARISON: None available. TECHNIQUE: Ultrasound of the deep veins is performed from the hip to the calf with compression sonography and color and pulse Doppler assessment. Spectral analysis with color-flow imaging is performed. FINDINGS: There is normal venous compression and respiratory variation and augmented flow. The visualized common femoral vein, superficial femoral vein, profunda femoral vein, popliteal vein, and the trifurcation region shows no evidence of deep venous thrombosis. There is no significant popliteal fossa cyst. If the patient's symptoms persist, followup ultrasound in 5 days 7 days might be of value to exclude proximal propagation from a non-visualized calf vein. US/US venous duplex LE IMPRESSION: No DVT demonstrated in the left lower extremity.
[2023-07-19 12:13] VITALS: BP 122/77; PULSE 76; O2SAT 99
[2023-07-19 12:14] VITALS: BMI 25.1
--- NOTE | 2023-07-19 12:19 | ECG_ITS ---
Test Reason : AMS Blood Pressure : / mmHG Vent. Rate : 075 BPM Atrial Rate : 000 BPM P-R Int : 000 ms QRS Dur : 096 ms QT Int : 398 ms P-R-T Axes : 000 039 077 degrees QTc Int : 444 ms Normal sinus rhythm with occasional , and consecutive Premature atrial complexes Abnormal ECG When compared with ECG of 04-JUN-2023 22:23, Premature atrial complexes are now Present Referred By: Cornell Diallo Electronically Signed By:SUSAN CHARLES MD
--- NOTE | 2023-07-19 12:26 | ED_ITS ---
HPI - General Adult General Chief complaint: General Medical Stated complaint: LETHARGIC DIFFICULTY WALKING Time Seen by Provider: 07/19/23 12:13 History of Present Illness HPI narrative: The patient is a 68-year-old female who was sent to the emergency room from an assisted living facility, [facility]. Apparently the staff at the facility was concerned that the patient's functional status was declining over the last week with increased walking and increased confusion. The patient has a history of significant dementia. The patient was recently at this hospital for almost 3 weeks. She came to the emergency room on June 04, 2023 and was evaluated for worsening dementia. She had been living with her up to that point and she came here because the felt that she could no longer be cared for by him. She stayed in the emergency room for almost 3 weeks and was discharged on June 24 to the [facility] facility. The patient was sent to the on [facility] of [facility] facility today because she has been more confused over the last week and has had difficulty walking. She has a history of an elevated ammonia level as well as a history of significant dementia with psychosis. She is on Depakote. The patient is awake but clearly disoriented. She says that she is 47 years old and says that she came here from her home in [place]. She denies Related Data Home Medications Medication Instructions Recorded Confirmed donepezil 5 mg tablet 5 mg PO BEDTIME 06/04/23 06/04/23 memantine 5 mg tablet 5 mg PO BID 06/04/23 06/04/23 suvorexant 10 mg tablet (Belsomra) 10 mg PO BEDTIME 06/04/23 06/04/23 Previous Rx's Medication Instructions Recorded atorvastatin 20 mg tablet 1 tab PO DAILY 30 days #30 tabs 05/31/22 donepezil 10 mg tablet 1 tab PO BEDTIME 30 days #30 tabs 05/31/22 levothyroxine 75 mcg tablet 1 tab PO DAILY@0600 30 days #30 05/31/22 tabs lisinopril 10 mg tablet 1 tab PO DAILY 30 days #30 tabs 05/31/22 sertraline 50 mg tablet 1.5 tab PO DAILY 30 days #45 tabs 05/31/22 clonazepam 0.5 mg tablet (Klonopin) 0.5 mg PO BID #14 tabs 06/22/23 clonazepam 0.5 mg tablet (Klonopin) 0.5 mg PO DAILY PRN restlessness 06/22/23 #7 tabs divalproex 125 mg capsule,delayed 500 mg (4 x 125 mg) PO BID 2 weeks 06/22/23 release sprinkle (Depakote #112 caps Sprinkles) donepezil 10 mg tablet 15 mg (1.5 x 10 mg) PO BEDTIME #30 06/22/23 tabs quetiapine 100 mg tablet (Seroquel) 100 mg PO TID #90 tabs 06/22/23 quetiapine 50 mg tablet (Seroquel) 50 mg PO Q6H PRN agitation #30 tabs 06/22/23 Allergies Allergy/AdvReac Type Severity Reaction Status Date / Time No Known Allergies Allergy Verified 02/01/23 03:42 Review of Systems 2 Review of Systems: Yes Unobtainable due to mental status PMFSH Past Medical History Medical History (Updated 07/19/23 @ 17:54 by Cornell Diallo MD) Dementia with agitation Psychosis UTI (urinary tract infection) Dementia Social History Social History (Updated 05/08/22 @ 15:23 by Chasidy Santiago DO) Household Members: Spouse Housing: House Do you presently have visiting nurse or other home services: No Alcohol intake: current Alcohol intake frequency: holidays/special occasions only Patient Tobacco Use Status: Former Tobacco user Tobacco use type: Cigarette e-Cigarette/Vaping Use: Former Use Second Hand Smoke Exposure: No Advance Directives: Yes Advance Directives on File: Yes Advance Directives Date on File: 06/01/22 service: No Sexual orientation: Straight/Heterosexual Physical Exam ED Vital Signs: Vital Signs - 24 hr 07/19/23 14:21 07/19/23 18:48 Temperature 98.9 F Pulse Rate 71 78 Respiratory Rate 16 18 Blood Pressure 124/65 143/78 H Pulse Oximetry 100 99 Oxygen Delivery Method Room Air Room Air BMI result Body Mass Index 25.1 Const Other: The patient is a reasonably well groomed 68-year-old who was awake and alert. She answers questions slowly. She is poorly oriented. She can not tell me the correct month or her correct age or where she lives. She does not seem in any pain or respiratory distress however. HENMT Other: Face is symmetrical. Mucous membranes moist Eyes Other: Pupils are round equal, conjunctivae are clear, extraocular movements intact Neck Other: No JVD, moving her neck easily, no adenopathy Resp Effort & Inspection: normal respiratory effort Auscultation: clear to auscultation bilaterally Cardio Rate: regular rate Rhythm: regular rhythm Heart sounds: S1 normal heart sound present and S2 normal heart sound present GI Other: Abdomen is soft and nontender Skin Other: The skin is dry and unremarkable Neuro Other: The patient is awake but poorly oriented. She can not tell me the correct month or her age. Her eye movements are intact. Her face is symmetrical. Her speech seems clear. She moves her extremities symmetrically. No obvious focal finding. She could ambulate with assistance. Extrem Other: The left leg may be slightly full compared to the right. Medications Administered Discontinued Medications Generic Name Dose Route Start Last Admin Trade Name Freq PRN Reason Stop Dose Admin Sodium Chloride 1,000 mls @ 999 mls/hr 07/19/23 14:30 07/19/23 17:57 Ns IV 07/19/23 15:30 Infused .Q1H1M LEVON Infusion Medical Decision Making Medical Decision Making [facility] Narrative: The patient is a 68-year-old woman with a history of early-onset dementia who lives at a local dementia unit who has been less active than usual over the last several days. She was sent evaluation of this change with specific request from Dr. Cindy Monge. The patient had a negative head CT, negative left leg venous ultrasound, normal valproic acid, normal ammonia, normal urinalysis, negative COVID test, unremarkable CBC and metabolic panel, and a negative chest x-ray. I contacted Dr. Mnoge interviewed an essentially negative workup. The patient will return to the dementia unit with a plan to reduce her Klonopin and possibly Depakote. Lab Data 07/19/23 13:36 07/19/23 13:36 Labs: Lab Results 07/19/23 07/19/23 Range/Units 13:36 16:55 WBC 8.8 (4.8-10.8) X10*3/uL RBC 4.15 L (4.20-5.50) X10*6/uL Hgb 11.7 L (12.0-16.0) g/dl Hct 36.2 L (37.0-47.0) % MCV 87.2 (80.0-98.0) fL MCH 28.2 (27.0-33.0) pg MCHC 32.3 (31.0-35.0) g/dl RDW 13.5 (11.0-16.0) % Plt Count 156 L (160-400) X10*3/uL MPV 11.4 (9.4-12.3) fL Immature Gran % (Auto) 0.5 H (0.0-0.4) % Neut % (Auto) 67.2 (45-73) % Lymph % (Auto) 18.2 L (20-40) % Martin % (Auto) 10.9 (2-11) % Eos % (Auto) 2.2 (0-4) % Baso % (Auto) 1.0 (0-2) % Lymph # (Auto) 1.6 (1.2-4.9) X10*3/uL Martin # (Auto) 1.0 (0.1-1.2) X10*3/uL Eos # (Auto) 0.2 (0.0-0.4) X10*3/uL Baso # (Auto) 0.1 (0.0-0.2) X10*3/uL Abs Immat Gran (auto) 0.04 H (0.00-0.03) X10*3/uL Absolute Neuts (auto) 5.9 (2.0-8.3) x10*3/uL Absolute Nucleated RBC 0.000 (0.0-0.012) X10*3/uL Nucleated RBC % (auto) 0.0 (0.0-0.2) /100WBC Sodium 143 (135-145) mmol/L Potassium 4.3 (3.3-5.1) mmol/L Chloride 106 (96-108) mmol/L Carbon Dioxide 30 H (22-29) mmol/L Anion Gap 11 L (12-20) BUN 18 H (9-16) mg/dL Creatinine 1.08 (0.5-1.4) mg/dL Estim Creat Clear Calc 48.5 Estimated GFR 50 Random Glucose 89 (60-115) mg/dL Calcium 9.0 (8.4-10.2) mg/dL Magnesium 2.1 (1.6-2.6) mg/dL Total Bilirubin 0.3 (0.0-1.0) mg/dL Direct Bilirubin 0.1 (0.0-0.5) mg/dL AST 15 (5-31) U/L ALT 9 (0-31) U/L Alkaline Phosphatase 68 (39-117) U/L Ammonia 18 (13-55) umol/L Troponin I High Sens < 2.7 (<3.5-17.0) ng/L C-Reactive Protein 0.20 (< or = 0.50) mg/dL B-Natriuretic Peptide 88 (<100) pg/mL Total Protein 6.5 (6.5-8.0) g/dL Albumin 3.7 (3.5-5.0) g/dL TSH 2.25 (0.32-4.0) uIU/mL Urine Color Yellow Urine Appearance Clear Urine pH 8.0 (5.0-9.0) Ur Specific [place] 1.010 (1.005-1.025) Urine Protein Negative (Neg-Trace) mg/dL Urine Glucose (UA) Negative (Negative) mg/dL Urine Ketones Negative (Negative) mg/dL Urine Blood Negative (Negative) Urine Nitrite Negative (Negative) Ur Leukocyte Esterase Negative (Negative) Urine Opiates Screen Not Detected (Not Detect) Urine Fentanyl Screen Not Detected (Not Detect) Ur Barbiturates Screen Not Detected (Not Detect) Valproic Acid 66.2 (50.0-100.0) mcg/mL Ur Phencyclidine Scrn Not Detected (Not Detect) Ur Amphetamines Screen Not Detected (Not Detect) U Benzodiazepines Scrn Not Detected (Not Detect) Urine Cocaine Screen Not Detected (Not Detect) U Marijuana (THC) Screen Not Detected (Not Detect) Ethyl Alcohol < 10 mg/dL Influenza Type A (PCR) NEGATIVE (Negative) Influenza Type B (PCR) NEGATIVE (Negative) RSV RNA Qual (PCR) NEGATIVE (Negative) SARS-CoV-2 RNA (RT-PCR) NEGATIVE (Negative) Independent Interpretation I performed an independent interpretation of an: EKG Interpretation: EKG at 13:34 shows what I believe is a sinus rhythm with occasional premature complexes at 75 beats per minute. I did not feel there were significant changes from the previous EKG from May Discharge Plan Discharge Clinical Impression: Weakness, Dementia Patient Disposition: [facility] Additional Instructions: Her workup in the emergency room today is unremarkable. Case was discussed with Dr. Monge. Dr. Monge will likely make changes to the patient's medications. However otherwise please continue all of her regular medications. Return to the emergency room if significantly worse. Prescriptions: No Action atorvastatin 20 mg tablet 1 tab PO DAILY 30 Days Qty: 30 0RF donepezil 10 mg tablet 1 tab PO BEDTIME 30 Days Qty: 30 0RF levothyroxine 75 mcg tablet 1 tab PO DAILY@0600 30 Days Qty: 30 0RF lisinopril 10 mg tablet 1 tab PO DAILY 30 Days Qty: 30 0RF sertraline 50 mg tablet 1.5 tab PO DAILY 30 Days Qty: 45 0RF donepezil 5 mg tablet 5 mg PO BEDTIME memantine 5 mg tablet 5 mg PO BID Belsomra 10 mg tablet 10 mg PO BEDTIME clonazepam [Klonopin] 0.5 mg tablet 0.5 mg PO BID Qty: 14 0RF clonazepam [Klonopin] 0.5 mg tablet 0.5 mg PO DAILY PRN (Reason: restlessness) Qty: 7 0RF divalproex [Depakote Sprinkles] 125 mg capsule, delayed rel sprinkle 500 mg PO BID 14 Days Qty: 112 0RF donepezil 10 mg tablet 15 mg PO BEDTIME Qty: 30 0RF quetiapine [Seroquel] 100 mg tablet 100 mg PO TID Qty: 90 0RF quetiapine [Seroquel] 50 mg tablet 50 mg PO Q6H PRN (Reason: agitation) Qty: 30 0RF Referrals: Cindy Monge MD [Physician] - Interventions: ED Discharge Assessment Last Done: 07/19/23 18:48 Discharge Date/Time: 07/19/23 18:53
[2023-07-19 13:44] LABS: MANUAL DIFF FLAG NO
[2023-07-19 13:45] LABS: Basophils Absolute Auto 0.1 X10*3/uL (0.0-0.2); Eosinophils Absolute Auto 0.2 X10*3/uL (0.0-0.4); Eosinophils Percent Auto 2.2 % (0-4); Hematocrit 36.2 % (37.0-47.0); Hemoglobin 11.7 g/dl (12.0-16.0); Imm Gran Abs Auto 0.04 X10*3/uL (0.00-0.03); Imm Gran Pct Auto 0.5 % (0.0-0.4); Lymphocytes Absolute Auto 1.6 X10*3/uL (1.2-4.9); Lymphocytes Percent Auto 18.2 % (20-40); Mean Corpuscular HGB Conc 32.3 g/dl (31.0-35.0); Mean Corpuscular Hemoglobin 28.2 pg (27.0-33.0); Mean Corpuscular Volume 87.2 fL (80.0-98.0); Mean Platelet Volume 11.4 fL (9.4-12.3); Monocytes Percent Auto 10.9 % (2-11); Neutrophils Absolute Auto 5.9 x10*3/uL (2.0-8.3); Neutrophils Percent Auto 67.2 % (45-73); Platelet Count 156 X10*3/uL (160-400); Red Blood Count 4.15 X10*6/uL (4.20-5.50); Red Cell Distribution Width 13.5 % (11.0-16.0); White Blood Count 8.8 X10*3/uL (4.8-10.8)
[2023-07-19 13:52] LABS: Ammonia 18 umol/L (13-55)
[2023-07-19 13:57] LABS: Valproate 66.2 mcg/mL (50.0-100.0)
[2023-07-19 14:04] LABS: B Type Natriuretic Peptide 88 pg/mL (<100)
[2023-07-19 14:08] LABS: Alanine Aminotransferase 9 U/L (0-31); Albumin Level 3.7 g/dL (3.5-5.0); Alkaline Phosphatase 68 U/L (39-117); Anion Gap 11 (12-20); Aspartate Amino Transferase 15 U/L (5-31); Bilirubin Direct 0.1 mg/dL (0.0-0.5); Bilirubin Total 0.3 mg/dL (0.0-1.0); Blood Urea Nitrogen 18 mg/dL (9-16); Carbon Dioxide 30 mmol/L (22-29); Chloride 106 mmol/L (96-108); Creatinine Clr Calc Pharmacy 48.5; Estimated Glomerular Filt Rate 50; Ethanol < 10 mg/dL; Glucose Random 89 mg/dL (60-115); Magnesium 2.1 mg/dL (1.6-2.6); Potassium 4.3 mmol/L (3.3-5.1); Sodium 143 mmol/L (135-145); Total Protein 6.5 g/dL (6.5-8.0); Troponin-I High Sensitivity < 2.7 ng/L (<3.5-17.0)
[2023-07-19 14:20] LABS: Thyroid Stimulating Hormone 2.25 uIU/mL (0.32-4.0)
[2023-07-19 14:21] VITALS: BP 124/65; PULSE 71; RESP 16; O2SAT 100
[2023-07-19 14:23] LABS: Influenza A PCR NEGATIVE (Negative); Influenza B PCR NEGATIVE (Negative); Resp Syncy Virus RNA Qual PCR NEGATIVE (Negative); SARS COV2 PCR INHOUSE NEGATIVE (Negative)
[2023-07-19] MEDS: 0.9 % Sodium Chloride 1,000 ML 999 ML IV (15:32)
[2023-07-19 17:05] LABS: Appearance Urine Clear; Color Urine Yellow; Glucose Urine UA Negative (Negative); Leukocyte Esterase Urine Negative (Negative); Nitrite Urine Negative (Negative); Urine Blood Negative (Negative); Urine Ketones Negative (Negative); Urine Protein Negative (Neg-Trace)
[2023-07-19 17:13] LABS: Amphetamine Screen Urine Not Detected (Not Detect); Barbiturates, Urine Not Detected (Not Detect); Benzodiazepines Screen Urine Not Detected (Not Detect); Cannabinoid Screen Urine Not Detected (Not Detect); Cocaine Screen Urine Not Detected (Not Detect); Fentanyl, urine Not Detected (Not Detect); Opiate Screen Urine Not Detected (Not Detect); Phencyclidine Screen Urine Not Detected (Not Detect)
--- NOTE | 2023-07-19 17:46 | PC.NURSE ---
Sp[facility] updated on current lab results, stating they would prefer her to return in the a[facility] when a nurse is present
--- NOTE | 2023-07-19 18:16 | PC.NURSE ---
Family member osei at bedside updated and aware patient is being discharged back to the [facility]. Rpeort given to mildred martínez at the [facility] who is aware patient will be returning tonight, transport booked for return
[2023-07-19 18:48] VITALS: BP 143/78; PULSE 78; RESP 18; TEMP 37.2; O2SAT 99
== END 2023-07-19 18:53 | disposition skilled nursing facility (03) ==
PROVIDERS: Emergency Provider Emergency Medicine; PCP Internal Medicine
DX: R53.1 Weakness (principal); F03.90 Unspecified dementia, unspecified severity, without behavioral disturbance, psychotic disturbance, mood disturbance, and anxiety; R60.0 Localized edema; Z79.899 Other long term (current) drug therapy; Z11.52 Encounter for screening for COVID-19; Z20.828 Contact with and (suspected) exposure to other viral communicable diseases
CPT/HCPCS: 0241U; 36415; 51701; 70450; 71045; 80048; 80076; 80164; 80307; 81003; 82140; 83735; 83880; 84443; 84484; 85025; 86140; 93005; 93971; 96360; 96361; 99284

== ENCOUNTER → 2023-07-19 12:19 | Outpatient (BNV) | payer MEDICARE, OTHER, SELFPAY | PROVIDERS: Emergency Provider Emergency Medicine; PCP Internal Medicine; Visit Provider Internal Medicine Cardiovascular Disease | DX: I49.1 Atrial premature depolarization (principal) | CPT/HCPCS: 93010 ==

== ENCOUNTER 2023-07-22 12:12 | Emergency (ER) | payer MEDICARE, OTHER, SELFPAY ==
--- NOTE | ~2023-07-22 | XR_ITS ---
X-ray left knee, left tibia/fibula, left ankle and left foot CLINICAL HISTORY: Trauma, pain. COMPARISON: No similar priors. TECHNIQUE: 4 views of the left knee, 2 views of the left tibia/fibula, one view of left ankle and 3 views of the left foot. FINDINGS: Left knee: No fracture or subluxation. Mild joint space narrowing of the medial and patellofemoral compartments. Mild upper patellar spurring. No joint effusion. Left tibia/fibula: No fracture or subluxation. Left ankle and left foot: No fracture or subluxation. Mild hallux valgus with associated mild degenerative changes in the first MTP joint. Additional findings: Diffuse soft tissue swelling in the left lower extremity, nonspecific correlate with physical examination. XR/XR knee LT 4V IMPRESSION: 1. No acute fractures or malalignment. 2. Mild degenerative osteoarthritis of the left knee. 3. Mild hallux valgus. 4. Diffuse soft tissue swelling in the left lower extremity, nonspecific.
--- NOTE | ~2023-07-22 | XR_ITS ---
X-ray left knee, left tibia/fibula, left ankle and left foot CLINICAL HISTORY: Trauma, pain. COMPARISON: No similar priors. TECHNIQUE: 4 views of the left knee, 2 views of the left tibia/fibula, one view of left ankle and 3 views of the left foot. FINDINGS: Left knee: No fracture or subluxation. Mild joint space narrowing of the medial and patellofemoral compartments. Mild upper patellar spurring. No joint effusion. Left tibia/fibula: No fracture or subluxation. Left ankle and left foot: No fracture or subluxation. Mild hallux valgus with associated mild degenerative changes in the first MTP joint. Additional findings: Diffuse soft tissue swelling in the left lower extremity, nonspecific correlate with physical examination. XR/XR foot LT 2V IMPRESSION: 1. No acute fractures or malalignment. 2. Mild degenerative osteoarthritis of the left knee. 3. Mild hallux valgus. 4. Diffuse soft tissue swelling in the left lower extremity, nonspecific.
--- NOTE | ~2023-07-22 | XR_ITS ---
EXAMINATION: XR CHEST CLINICAL INFORMATION: Left lower extremity edema COMPARISON: 07/19/2023 TECHNIQUE: Frontal view of the chest was obtained. FINDINGS: Heart size is within normal limits. There is no evidence of CHF. The ascending aorta is mildly prominent. No infiltrates, effusions or lung masses are seen. XR/XR chest 1V IMPRESSION: No acute intrathoracic disease.
--- NOTE | ~2023-07-22 | XR_ITS ---
X-ray left knee, left tibia/fibula, left ankle and left foot CLINICAL HISTORY: Trauma, pain. COMPARISON: No similar priors. TECHNIQUE: 4 views of the left knee, 2 views of the left tibia/fibula, one view of left ankle and 3 views of the left foot. FINDINGS: Left knee: No fracture or subluxation. Mild joint space narrowing of the medial and patellofemoral compartments. Mild upper patellar spurring. No joint effusion. Left tibia/fibula: No fracture or subluxation. Left ankle and left foot: No fracture or subluxation. Mild hallux valgus with associated mild degenerative changes in the first MTP joint. Additional findings: Diffuse soft tissue swelling in the left lower extremity, nonspecific correlate with physical examination. XR/XR tibia fibula LT 2V IMPRESSION: 1. No acute fractures or malalignment. 2. Mild degenerative osteoarthritis of the left knee. 3. Mild hallux valgus. 4. Diffuse soft tissue swelling in the left lower extremity, nonspecific.
--- NOTE | ~2023-07-22 | XR_ITS ---
X-ray left knee, left tibia/fibula, left ankle and left foot CLINICAL HISTORY: Trauma, pain. COMPARISON: No similar priors. TECHNIQUE: 4 views of the left knee, 2 views of the left tibia/fibula, one view of left ankle and 3 views of the left foot. FINDINGS: Left knee: No fracture or subluxation. Mild joint space narrowing of the medial and patellofemoral compartments. Mild upper patellar spurring. No joint effusion. Left tibia/fibula: No fracture or subluxation. Left ankle and left foot: No fracture or subluxation. Mild hallux valgus with associated mild degenerative changes in the first MTP joint. Additional findings: Diffuse soft tissue swelling in the left lower extremity, nonspecific correlate with physical examination. XR/XR ankle LT min 3V IMPRESSION: 1. No acute fractures or malalignment. 2. Mild degenerative osteoarthritis of the left knee. 3. Mild hallux valgus. 4. Diffuse soft tissue swelling in the left lower extremity, nonspecific.
--- NOTE | ~2023-07-22 | US_ITS ---
EXAMINATION: US VENOUS ULTRASOUND WITH DOPPLER LOWER EXTREMITY, LEFT CLINICAL INFORMATION: Left leg swelling COMPARISON: Left lower extremity DVT study 3 days ago on 07/19/2023 TECHNIQUE: Ultrasound of the deep veins is performed from the hip to the calf with compression sonography and color and pulse Doppler assessment. Spectral analysis with color-flow imaging is performed. FINDINGS: There is normal venous compression and respiratory variation and augmented flow. The visualized common femoral vein, superficial femoral vein, profunda femoral vein, popliteal vein, and the trifurcation region shows no evidence of deep venous thrombosis. There is no significant popliteal fossa cyst. If the patient's symptoms persist, followup ultrasound in 5 days 7 days might be of value to exclude proximal propagation from a non-visualized calf vein. US/US venous duplex LE IMPRESSION: No DVT demonstrated in the left lower extremity.
[2023-07-22 12:30] VITALS: BP 130/80; PULSE 84; O2SAT 98
[2023-07-22 12:46] VITALS: BP 124/66; PULSE 66; RESP 18; TEMP 36.3; O2SAT 97; BMI 22.6
--- NOTE | 2023-07-22 13:06 | ED_ITS ---
HPI - General Adult General Chief complaint: Extremity Injury, Lower Stated complaint: L LEG SWELLING Time Seen by Provider: 07/22/23 12:39 Source: patient and RN notes reviewed Mode of arrival: EMS Limitations: other (Dementia) History of Present Illness HPI narrative: This is a 68-year-old female, with a PMH of dementia, psychosis, hypothyroidism, HLD, who presents the emergency department from [facility] dementia unit for evaluation of left leg swelling and increased difficulty with ambulation for the last several days. Patient was previously seen in the emergency room on July 18 due to functional status decline. Her workup in the emergency room at that time was unremarkable. Patient has recently been in hospital for almost 3 weeks. She came to the emergency room on June 04, 2023 for worsening dementia. She was living with her up until that point and came here as the felt as though he was no longer able to care for her. She stated in the emergency room for almost 3 weeks and was discharged on June 24 to the [facility] facility. Patient is awake but clearly disoriented. She smiles and says hello, does not state anything else. MD complaint: Left leg swelling Onset (ago): day(s) Relieving factors: none Exacerbating factors: none Treatments prior to arrival: none Related Data Home Medications Medication Instructions Recorded Confirmed donepezil 5 mg tablet 5 mg PO BEDTIME 06/04/23 06/04/23 memantine 5 mg tablet 5 mg PO BID 06/04/23 06/04/23 suvorexant 10 mg tablet (Belsomra) 10 mg PO BEDTIME 06/04/23 06/04/23 Previous Rx's Medication Instructions Recorded atorvastatin 20 mg tablet 1 tab PO DAILY 30 days #30 tabs 05/31/22 donepezil 10 mg tablet 1 tab PO BEDTIME 30 days #30 tabs 05/31/22 levothyroxine 75 mcg tablet 1 tab PO DAILY@0600 30 days #30 05/31/22 tabs lisinopril 10 mg tablet 1 tab PO DAILY 30 days #30 tabs 05/31/22 sertraline 50 mg tablet 1.5 tab PO DAILY 30 days #45 tabs 05/31/22 clonazepam 0.5 mg tablet (Klonopin) 0.5 mg PO BID #14 tabs 06/22/23 clonazepam 0.5 mg tablet (Klonopin) 0.5 mg PO DAILY PRN restlessness 06/22/23 #7 tabs divalproex 125 mg capsule,delayed 500 mg (4 x 125 mg) PO BID 2 weeks 06/22/23 release sprinkle (Depakote #112 caps Sprinkles) donepezil 10 mg tablet 15 mg (1.5 x 10 mg) PO BEDTIME #30 06/22/23 tabs quetiapine 100 mg tablet (Seroquel) 100 mg PO TID #90 tabs 06/22/23 quetiapine 50 mg tablet (Seroquel) 50 mg PO Q6H PRN agitation #30 tabs 06/22/23 Allergies Allergy/AdvReac Type Severity Reaction Status Date / Time No Known Allergies Allergy Verified 07/22/23 12:51 Review of Systems 2 Review of Systems: Yes all other systems are reviewed and are negative Constitutional: Constitutional: Reports as per [facility] Past Medical History Attestation statement: The following information was validated with the patient. Medical History Dementia with agitation Psychosis UTI (urinary tract infection) Dementia Social History Social History Household Members: Spouse Housing: House Do you presently have visiting nurse or other home services: No Unable to assess alcohol history related to: Unknown Alcohol intake: current Alcohol intake frequency: holidays/special occasions only Patient Tobacco Use Status: Former Tobacco user Tobacco use type: Cigarette e-Cigarette/Vaping Use: Former Use Second Hand Smoke Exposure: No Use of substances other than those prescribed or required for medical reasons: Unknown Advance Directives: Yes Advance Directives on File: Yes Advance Directives Date on File: 06/01/22 service: No Sexual orientation: Straight/Heterosexual Physical Exam ED Vital Signs: Vital Signs - 24 hr 07/22/23 12:46 07/22/23 15:35 07/22/23 18:51 Temperature 97.4 F 97.3 F 99.3 F Pulse Rate 66 61 66 Respiratory Rate 18 18 18 Blood Pressure 124/66 120/73 127/75 Pulse Oximetry 97 99 93 Oxygen Delivery Method Room Air Room Air Room Air 07/23/23 00:33 07/23/23 06:52 Temperature 98.0 F 97.6 F Pulse Rate 60 65 Respiratory Rate 16 16 Blood Pressure 110/61 153/68 H Pulse Oximetry 94 97 Oxygen Delivery Method Room Air Room Air BMI result Body Mass Index 22.6 Const General: cooperative, comfortable and no acute distress Orientation/consciousness: oriented to person Limitations: no limitations [facility] Head: Yes normal to inspection, Yes normocephalic and Yes atraumatic Ears: hearing grossly normal bilaterally General nose exam: Normal external nose present Face and sinus: Yes normal facial exam Mouth: Normal oral and palatal mucosa present, oropharynx normal and moist mucous membranes Throat: Yes posterior oropharynx normal Eyes General: appearance normal, both eyes and all related structures Eyelids: Yes eyelids normal Conjunctivae: conjunctivae normal Sclerae: sclerae normal Pupils: Equal, round and reactive pupils present EOM: EOMs intact bilaterally Neck Neck: Yes normal visual inspection, Yes full ROM and Yes no lymphadenopathy Lymphatic: no lymphadenopathy noted Chest Chest palpation & inspection: normal inspection of the chest Resp Effort & Inspection: normal respiratory effort and able to speak in complete sentences Auscultation: clear to auscultation bilaterally, no crackles, no rales, no rhonchi and no wheezes Cardio Rate: regular rate Rhythm: regular rhythm Heart sounds: S1 normal heart sound present and S2 normal heart sound present GI Other: Abdomen is soft and nontender Inspection: Yes normal to inspection Skin General skin exam: no rashes or lesions noted Trauma: no lacerations or abrasions Wounds: no wounds Neuro Other: Patient is awake but poorly oriented. Face is symmetric, speech seeming clear. Moving all extremities symmetrically. No obvious focal findings. General: oriented to person Cranial nerves: Yes Equal, round and reactive pupils present Extrem Other: Left lower is edematous, no pitting edema noted. calf is indurated, no warmth or erythema noted. No open wounds. Strong DP PT pulses. Passive range of motion intact of the knee and ankle joint. General: Yes normal to inspection Right upper extremity: normal to inspection Left upper extremity: normal to inspection Right lower extremity: normal to inspection Left lower extremity: normal to inspection Course Reevaluation(s) Reevaluation #1: Still awaiting blood work. Ultrasound unremarkable. Chest x-ray still pending. Time: 15:55 Reevaluation #2: Chest x-ray unremarkable. Ultrasound of left lower extremity without any DVT. No leukocytosis, normocytic anemia at 11.1/34.2 appears to be at her baseline, chemistry within normal limits. BNP 100. Patient likely has dependent edema, evidence of infection. Given difficulty walking secondary to left leg swelling, patient will be seen and evaluated by case management/PT. Patient is medically cleared, physician observation initiated. Time: 17:49 Reevaluation #3: [facility] at 10:30, case management assisted with disposition plan. Patient's [id number] stated patient is to have an outpatient MRI done. Educated patient on diagnosis and treatment plan, answered all question, patient verbalizes understanding. At this time patient will be discharged home, advised to return with new or worsening symptoms. Educated on worrisome signs and symptoms and when to return. At this time I feel comfortable discharge home. Time: 10:06 Medical Decision Making Medical Decision Making [facility] Narrative: This is a 68-year-old female, with a history of dementia, psychosis, hypothyroidism, HDL, who presents emergency department from [facility] dementia unit for evaluation of left leg swelling and increased difficulty walking with ambulation for the last several days. On arrival, patient is alert and oriented x1. She is resting comfortably, nontoxic appearing. Neurologically without any focal deficits. Left leg is indurated, no increased warmth or erythema. No pitting edema noted. Patient was seen on July 18 where she had a ultrasound that was negative for DVT. Will obtain basic labs who is history x-ray, ultrasound. Differential diagnoses include CHF, DVT, cellulitis, peripheral edema. No evidence of infection. Differential Diagnosis Differential Diagnoses: The differential diagnosis associated with the presentation includes See above Admission/Observation Consideration of admission/observation: Escalation of care including admission/observation considered Patient would have been admitted to the hospital had her work up had any findings where hospital admission was appropriate and her clinical presentation warranted hospital admission. Lab Data [facility] Lab Attestation statement: I reviewed the patient's lab results. No leukocytosis, normocytic anemia noted at 11.1/34.2, chemistry within normal limits. BNP 100. 07/22/23 16:08 07/22/23 16:08 Labs: Lab Results 07/22/23 Range/Units 16:08 WBC 7.2 (4.8-10.8) X10*3/uL RBC 3.96 L (4.20-5.50) X10*6/uL Hgb 11.1 L (12.0-16.0) g/dl Hct 34.2 L (37.0-47.0) % MCV 86.4 (80.0-98.0) fL MCH 28.0 (27.0-33.0) pg MCHC 32.5 (31.0-35.0) g/dl RDW 13.3 (11.0-16.0) % Plt Count 159 L (160-400) X10*3/uL MPV 11.5 (9.4-12.3) fL Immature Gran % (Auto) 0.6 H (0.0-0.4) % Neut % (Auto) 52.6 (45-73) % Lymph % (Auto) 28.7 (20-40) % Real % (Auto) 12.0 H (2-11) % Eos % (Auto) 5.0 H (0-4) % Baso % (Auto) 1.1 (0-2) % Lymph # (Auto) 2.1 (1.2-4.9) X10*3/uL Real # (Auto) 0.9 (0.1-1.2) X10*3/uL Eos # (Auto) 0.4 (0.0-0.4) X10*3/uL Baso # (Auto) 0.1 (0.0-0.2) X10*3/uL Abs Immat Gran (auto) 0.04 H (0.00-0.03) X10*3/uL Absolute Neuts (auto) 3.8 (2.0-8.3) x10*3/uL Absolute Nucleated RBC 0.000 (0.0-0.012) X10*3/uL Nucleated RBC % (auto) 0.0 (0.0-0.2) /100WBC Sodium 143 (135-145) mmol/L Potassium 4.2 (3.3-5.1) mmol/L Chloride 108 (96-108) mmol/L Carbon Dioxide 29 (22-29) mmol/L Anion Gap 10 L (12-20) BUN 20 H (9-16) mg/dL Creatinine 1.01 (0.5-1.4) mg/dL Estim Creat Clear Calc 49.9 Estimated GFR 55 Random Glucose 84 (60-115) mg/dL Calcium 9.1 (8.4-10.2) mg/dL Total Bilirubin 0.3 (0.0-1.0) mg/dL Direct Bilirubin 0.1 (0.0-0.5) mg/dL AST 20 (5-31) U/L ALT 12 (0-31) U/L Alkaline Phosphatase 65 (39-117) U/L B-Natriuretic Peptide 100 (<100) pg/mL Total Protein 6.4 L (6.5-8.0) g/dL Albumin 3.5 (3.5-5.0) g/dL Radiology Impression Discussion of test interpretation with radiology: I have reviewed the radiologist's reading. Radiologist Impression: FINDINGS: There is normal venous compression and respiratory variation and augmented flow. The visualized common femoral vein, superficial femoral vein, profunda femoral vein, popliteal vein, and the trifurcation region shows no evidence of deep venous thrombosis. There is no significant popliteal fossa cyst. If the patient's symptoms persist, followup ultrasound in 5 days 7 days might be of value to exclude proximal propagation from a non-visualized calf vein. US/US venous duplex LE LT IMPRESSION: No DVT demonstrated in the left lower extremity. Dictated By: Terrell Ann MD XR/XR chest 1V IMPRESSION: No acute intrathoracic disease. Dictated By: Terrell Ann MD Independent Historian Clinical information obtained from an independent historian. History obtained from or confirmed by: EMS Discharge Plan Discharge Clinical Impression: Physical deconditioning, Leg pain, left, Osteoarthritis Patient Disposition: Xfer Other Transfer Details: [facility] Instructions: Osteoarthritis (DC), Osteoarthritis (ED), Leg Pain (ED) Additional Instructions: Take your medications as prescribed. If you were prescribed antibiotics today, it is important that you take your medication to their entirety, do not skip any doses, do not finish them early. Follow-up with your primary care provider this week. Return to the emergency department with new or worsening symptoms. Such as fevers, chills, chest pain, shortness of breath, nausea, vomiting, dizziness, headache, vision changes, lethargy In case of emergency call 911 Please follow-up with your PCP in regards to the outpatient MRI that was mentioned by your [id number] Prescriptions: No Action atorvastatin 20 mg tablet 1 tab PO DAILY 30 Days Qty: 30 0RF donepezil 10 mg tablet 1 tab PO BEDTIME 30 Days Qty: 30 0RF levothyroxine 75 mcg tablet 1 tab PO DAILY@0600 30 Days Qty: 30 0RF lisinopril 10 mg tablet 1 tab PO DAILY 30 Days Qty: 30 0RF sertraline 50 mg tablet 1.5 tab PO DAILY 30 Days Qty: 45 0RF donepezil 5 mg tablet 5 mg PO BEDTIME memantine 5 mg tablet 5 mg PO BID Belsomra 10 mg tablet 10 mg PO BEDTIME clonazepam [Klonopin] 0.5 mg tablet 0.5 mg PO BID Qty: 14 0RF clonazepam [Klonopin] 0.5 mg tablet 0.5 mg PO DAILY PRN (Reason: restlessness) Qty: 7 0RF divalproex [Depakote Sprinkles] 125 mg capsule, delayed rel sprinkle 500 mg PO BID 14 Days Qty: 112 0RF donepezil 10 mg tablet 15 mg PO BEDTIME Qty: 30 0RF quetiapine [Seroquel] 100 mg tablet 100 mg PO TID Qty: 90 0RF quetiapine [Seroquel] 50 mg tablet 50 mg PO Q6H PRN (Reason: agitation) Qty: 30 0RF Referrals: Physician,Unknown J [Primary Care Provider] - 2 days
--- NOTE | 2023-07-22 13:36 | PC.NURSE ---
pt coming from [facility], pt is a poor historian do to dementia, pt denies pain, but left leg visibly swollen/slightly red in color. respirations even unlabored, ls clear, skin pwd, in no apparent distress. staff is also reporting that pt is having difficulty ambulating at the facility.
[2023-07-22 15:35] VITALS: BP 120/73; PULSE 61; RESP 18; TEMP 36.3; O2SAT 99
--- NOTE | 2023-07-22 15:36 | PC.NURSE ---
pt is currently sleeping, easily awakes, vs stable
[2023-07-22 16:12] LABS: MANUAL DIFF FLAG NO
[2023-07-22 16:15] LABS: Basophils Absolute Auto 0.1 X10*3/uL (0.0-0.2); Basophils Percent Auto 1.1 % (0-2); Eosinophils Absolute Auto 0.4 X10*3/uL (0.0-0.4); Hematocrit 34.2 % (37.0-47.0); Hemoglobin 11.1 g/dl (12.0-16.0); Imm Gran Abs Auto 0.04 X10*3/uL (0.00-0.03); Imm Gran Pct Auto 0.6 % (0.0-0.4); Lymphocytes Absolute Auto 2.1 X10*3/uL (1.2-4.9); Lymphocytes Percent Auto 28.7 % (20-40); Mean Corpuscular HGB Conc 32.5 g/dl (31.0-35.0); Mean Corpuscular Volume 86.4 fL (80.0-98.0); Mean Platelet Volume 11.5 fL (9.4-12.3); Monocytes Absolute Auto 0.9 X10*3/uL (0.1-1.2); Neutrophils Absolute Auto 3.8 x10*3/uL (2.0-8.3); Neutrophils Percent Auto 52.6 % (45-73); Platelet Count 159 X10*3/uL (160-400); Red Blood Count 3.96 X10*6/uL (4.20-5.50); Red Cell Distribution Width 13.3 % (11.0-16.0); White Blood Count 7.2 X10*3/uL (4.8-10.8)
[2023-07-22 16:30] LABS: Alanine Aminotransferase 12 U/L (0-31); Albumin Level 3.5 g/dL (3.5-5.0); Alkaline Phosphatase 65 U/L (39-117); Anion Gap 10 (12-20); Aspartate Amino Transferase 20 U/L (5-31); Bilirubin Direct 0.1 mg/dL (0.0-0.5); Bilirubin Total 0.3 mg/dL (0.0-1.0); Blood Urea Nitrogen 20 mg/dL (9-16); Calcium 9.1 mg/dL (8.4-10.2); Carbon Dioxide 29 mmol/L (22-29); Chloride 108 mmol/L (96-108); Creatinine Clr Calc Pharmacy 49.9; Estimated Glomerular Filt Rate 55; Glucose Random 84 mg/dL (60-115); Potassium 4.2 mmol/L (3.3-5.1); Sodium 143 mmol/L (135-145); Total Protein 6.4 g/dL (6.5-8.0)
[2023-07-22 16:36] LABS: B Type Natriuretic Peptide 100 pg/mL (<100)
--- NOTE | 2023-07-22 17:38 | PC.NURSE ---
Patient's daughter called stating she wants more imaging done to left lower extremity as patient was here last week, was able to walk last week but unable to walk this week. spoke with CAROLE Rosas regarding this. Plan to order case management.
[2023-07-22 18:51] VITALS: BP 127/75; PULSE 66; RESP 18; TEMP 37.4; O2SAT 93
[2023-07-23 00:33] VITALS: BP 110/61; PULSE 60; RESP 16; TEMP 36.7; O2SAT 94
--- NOTE | 2023-07-23 00:35 | MHC.EDTECH ---
Pt was assisted with a complete bed bath with extensive assistance of 2. Pt was able to assist with turning but not with the activity. Pt was incontinent of urine. Pt's linen were replaced, then provided with a warm blanket. Pt tolerated the activity well and looked very satisfied with her personal care.
--- NOTE | 2023-07-23 03:54 | MHC.EDTECH ---
Pt was incontinent of urine, she was assisted with toileting on the stretcher. Pt tolerated activity well.
[2023-07-23 06:52] VITALS: BP 153/68; PULSE 65; RESP 16; TEMP 36.4; O2SAT 97
--- NOTE | 2023-07-23 07:02 | MHC.EDTECH ---
Pt was toileted in stretcher with extensive assistance of 2. Pt was incontinent of urine. Pt tolerated activity well.
--- NOTE | 2023-07-23 08:10 | PC.NURSE ---
Please contact Jie Ewing with [phone] - [phone]
--- NOTE | 2023-07-23 09:00 | PC.NURSE ---
Attempted to call the [facility] for RN to RN and obtain med list for AM meds, no answer at this time.
--- NOTE | 2023-07-23 09:30 | MHC.CM.ED ---
Received case management consult overnight. Patient came to the ER d/t leg swelling. Work up essentially negative. Physical therapy eval completed. STR is not needed and patient can return to her assisted living facility. Met with patient and [id number], Faiza. Patient has been residing at [facility] since May 2023. PCP verified as Dr Cindy Willoughby. Patient will return via BLS at 1030am. Patient, Faiza, Camille COLLIER and Cony LAM aware. Concepción of [facility] also made aware. Continue to monitor for d/c needs.
[2023-07-23 10:27] VITALS: BP 112/77; PULSE 56; RESP 16; O2SAT 95
[2023-07-23 11:08] VITALS: BP 112/77; PULSE 56; RESP 16; TEMP -17.7; TEMP 0; O2SAT 95
== END 2023-07-23 11:09 | disposition other institution (70) ==
PROVIDERS: Physician Assistant Medical; Emergency Provider Emergency Medicine; PCP Internal Medicine
DX: M79.605 Pain in left leg (principal); R53.81 Other malaise; M19.90 Unspecified osteoarthritis, unspecified site; F03.90 Unspecified dementia, unspecified severity, without behavioral disturbance, psychotic disturbance, mood disturbance, and anxiety
CPT/HCPCS: 36415; 71045; 73564; 73590; 73610; 73620; 80048; 80076; 83880; 85025; 93971; 97162; 99284

== ENCOUNTER 2023-08-13 14:46 | Outpatient (REF) | payer MEDICARE, OTHER, SELFPAY ==
--- NOTE | ~2023-08-13 | MR_ITS ---
EXAMINATION: MR HIP WITHOUT CONTRAST, LEFT CLINICAL INFORMATION: Left hip pain, stiffness, difficulty ambulating and weight-bearing. Pain and swelling. COMPARISON: None available. TECHNIQUE: MRI of the left hip was obtained using routine sequences on a high-field magnet. FINDINGS: Evaluation somewhat limited secondary to patient motion. ACETABULAR LABRUM: Linear fluid signal within the undersurface of the anterosuperior labrum, likely indicating a nondisplaced undersurface tear (sagittal image [id number]). ARTICULAR CARTILAGE/BONE: Mild articular cartilage signal heterogeneity with tiny marginal osteophytes. No stress reaction, fracture, or avascular necrosis. No marrow edema or evidence of acute osseous injury. No concerning lytic or blastic osseous lesion. MUSCLES/TENDONS: Intact. JOINT FLUID/BURSA: Moderate fluid with adjacent edema in the greater trochanteric bursa, consistent with bursitis. No significant joint effusion. INTRAPELVIC STRUCTURES: Unremarkable. MR/MR hip LT wo con IMPRESSION: 1. Moderate greater trochanteric bursitis. 2. Probable nondisplaced undersurface tear of the anterosuperior labrum. 3. Mild left hip osteoarthritis. No stress reaction, fracture, or avascular necrosis.
--- NOTE | ~2023-08-13 | MR_ITS ---
EXAMINATION: MR HIP WITHOUT CONTRAST, LEFT CLINICAL INFORMATION: Left hip pain, stiffness, difficulty ambulating and weight-bearing. Pain and swelling. COMPARISON: None available. TECHNIQUE: MRI of the left hip was obtained using routine sequences on a high-field magnet. FINDINGS: Evaluation somewhat limited secondary to patient motion. ACETABULAR LABRUM: Linear fluid signal within the undersurface of the anterosuperior labrum, likely indicating a nondisplaced undersurface tear (sagittal image [id number]). ARTICULAR CARTILAGE/BONE: Mild articular cartilage signal heterogeneity with tiny marginal osteophytes. No stress reaction, fracture, or avascular necrosis. No marrow edema or evidence of acute osseous injury. No concerning lytic or blastic osseous lesion. MUSCLES/TENDONS: Intact. JOINT FLUID/BURSA: Moderate fluid with adjacent edema in the greater trochanteric bursa, consistent with bursitis. No significant joint effusion. INTRAPELVIC STRUCTURES: Unremarkable. MR/MR hip LT wo con IMPRESSION: 1. Moderate greater trochanteric bursitis. 2. Probable nondisplaced undersurface tear of the anterosuperior labrum. 3. Mild left hip osteoarthritis. No stress reaction, fracture, or avascular necrosis.
--- NOTE | ~2023-08-13 | MR_ITS ---
EXAMINATION: MR KNEE WITHOUT CONTRAST, LEFT CLINICAL INFORMATION: Left knee pain and swelling. Edema, stiffness, difficulty with ambulation and weightbearing. COMPARISON: Most recent left knee radiographs dated 07/22/2023. TECHNIQUE: MRI of the knee without contrast was performed using routine sequences on a high-field scanner. FINDINGS: MENISCI: Medial Meniscus: Inner margin blunting/tearing of the posterior root (sagittal image 03/01). Lateral Meniscus: Focal inner margin fraying/tearing of the meniscal body with a nondisplaced oblique inner margin tear. LIGAMENTS: Cruciate: Intact Collateral: Intact EXTENSOR MECHANISM: Intact quadriceps and patellar tendons. Tiny superior patellar enthesophytes. Normal patellofemoral alignment. ARTICULAR CARTILAGE/BONE: Patellofemoral Compartment: Mild central and medial trochlear articular cartilage signal heterogeneity. Medial Compartment: Minimal weightbearing articular cartilage signal heterogeneity. Lateral Compartment: Intact articular cartilage. JOINT FLUID AND BURSAE: Trace joint effusion and trace Niño's cyst. MR/MR knee LT wo con IMPRESSION: 1. Inner margin blunting/tearing of the medial meniscus posterior root. 2. Focal inner margin fraying/tearing of the lateral meniscal body with a nondisplaced oblique inner margin tear. 3. Minimal patellofemoral and medial compartment arthrosis. Trace joint effusion and trace Niño's cyst.
--- NOTE | ~2023-08-13 | MR_ITS ---
EXAMINATION: MR KNEE WITHOUT CONTRAST, LEFT CLINICAL INFORMATION: Left knee pain and swelling. Edema, stiffness, difficulty with ambulation and weightbearing. COMPARISON: Most recent left knee radiographs dated 07/22/2023. TECHNIQUE: MRI of the knee without contrast was performed using routine sequences on a high-field scanner. FINDINGS: MENISCI: Medial Meniscus: Inner margin blunting/tearing of the posterior root (sagittal image 03/01). Lateral Meniscus: Focal inner margin fraying/tearing of the meniscal body with a nondisplaced oblique inner margin tear. LIGAMENTS: Cruciate: Intact Collateral: Intact EXTENSOR MECHANISM: Intact quadriceps and patellar tendons. Tiny superior patellar enthesophytes. Normal patellofemoral alignment. ARTICULAR CARTILAGE/BONE: Patellofemoral Compartment: Mild central and medial trochlear articular cartilage signal heterogeneity. Medial Compartment: Minimal weightbearing articular cartilage signal heterogeneity. Lateral Compartment: Intact articular cartilage. JOINT FLUID AND BURSAE: Trace joint effusion and trace Niño's cyst. MR/MR knee LT wo con IMPRESSION: 1. Inner margin blunting/tearing of the medial meniscus posterior root. 2. Focal inner margin fraying/tearing of the lateral meniscal body with a nondisplaced oblique inner margin tear. 3. Minimal patellofemoral and medial compartment arthrosis. Trace joint effusion and trace Niño's cyst.
== END 2023-08-13 14:47 | disposition home or self-care (01) ==
LOC: HO.MRI 14:46
PROVIDERS: Visit Provider Nurse Practitioner Family
DX: M25.562 Pain in left knee (principal); M25.552 Pain in left hip; M25.662 Stiffness of left knee, not elsewhere classified; M25.652 Stiffness of left hip, not elsewhere classified; R26.2 Difficulty in walking, not elsewhere classified; F03.90 Unspecified dementia, unspecified severity, without behavioral disturbance, psychotic disturbance, mood disturbance, and anxiety
CPT/HCPCS: 73721